=== PATIENT | female | born 1975 ===

== ENCOUNTER 2020-08-14 06:33 | Outpatient (REF) | payer MEDICARE, MEDICAID, SELFPAY ==
[2020-08-14 08:36] LABS: Vitamin D 25-OH Total 21.7 ng/mL (>30)
== END 2020-08-14 06:34 | disposition home or self-care (01) ==
LOC: HO.LAB 06:33
PROVIDERS: PCP Internal Medicine; Visit Provider Internal Medicine
DX: E55.9 Vitamin D deficiency, unspecified (principal); E89.40 Asymptomatic postprocedural ovarian failure
CPT/HCPCS: 82306

== ENCOUNTER 2020-08-15 09:24 | Outpatient (REF) | payer MEDICARE, MEDICAID, SELFPAY ==
[2020-08-15 10:43] LABS: MANUAL DIFF FLAG NO
[2020-08-15 10:49] LABS: Basophils Percent Auto 0.3 % (0-2); Eosinophils Absolute Auto 0.3 X10*3/uL (0.0-0.4); Eosinophils Percent Auto 3.4 % (0-4); Hematocrit 38.1 % (37-47); Hemoglobin 12.4 g/dl (12.0-16.0); Imm Gran Abs Auto 0.04 X10*3/uL (0.00-0.03); Imm Gran Pct Auto 0.4 % (0.0-0.4); Lymphocytes Absolute Auto 2.1 X10*3/uL (1.2-4.9); Lymphocytes Percent Auto 21.9 % (20-40); Mean Corpuscular HGB Conc 32.5 g/dl (31.0-35.0); Mean Corpuscular Hemoglobin 30.4 pg (27.0-33.0); Mean Corpuscular Volume 93.4 fL (80-98); Mean Platelet Volume 10.3 fL (9.4-12.3); Monocytes Absolute Auto 0.4 X10*3/uL (0.1-1.2); Monocytes Percent Auto 4.7 % (2-11); Neutrophils Absolute Auto 6.5 X10*3/uL (2.0-8.3); Neutrophils Percent Auto 69.3 % (45-73); Platelet Count 223 X10*3/uL (160-400); Red Blood Count 4.08 X10*6/uL (4.20-5.50); Red Cell Distribution Width 13.2 % (11.0-16.0); White Blood Count 9.4 X10*3/uL (4.8-10.8)
[2020-08-15 10:53] LABS: Prothrombin Time 12.3 SEC (10.8-13.0)
[2020-08-15 11:37] LABS: Blood Urea Nitrogen 18 mg/dL (9-16); Estimated Glomerular Filt Rate > 60
[2020-08-15 11:43] LABS: Alanine Aminotransferase 12 U/L (0-31); Alkaline Phosphatase 60 U/L (39-117); Aspartate Amino Transferase 11 U/L (5-31); Bilirubin Direct 0.2 mg/dL (0.0-0.5); Bilirubin Total 0.6 mg/dL (0.0-1.0); Total Protein 6.6 g/dL (6.5-8.0)
== END 2020-08-15 09:25 | disposition home or self-care (01) ==
LOC: HO.LAB 09:24
PROVIDERS: Absent Provider Thoracic Surgery (Cardiothoracic Vascular Surgery); PCP Internal Medicine; Visit Provider Internal Medicine Gastroenterology
DX: K76.0 Fatty (change of) liver, not elsewhere classified (principal); N28.9 Disorder of kidney and ureter, unspecified
CPT/HCPCS: 36415; 80076; 82565; 84520; 85025; 85610

== ENCOUNTER 2020-09-04 10:55 | Outpatient (REF) | payer MEDICARE, MEDICAID, SELFPAY ==
--- NOTE | 2020-09-04 11:00 | MM_ITS ---
EXAMINATION: MM SCREENING DIGITAL BREAST TOMOSYNTHESIS, BILATERAL CLINICAL INFORMATION: Screening. Asymptomatic. The lifetime risk of breast cancer based on the Tyrer-Cuzick Model is 4.1%. COMPARISON: Mammography: August 31, 2019 and studies dating back to January 17, 2015 TECHNIQUE: Digital breast tomosynthesis is performed in both the craniocaudal and mediolateral oblique views along with computer-aided detection (CAD). Synthesized 2D images are generated from the tomosynthesis. FINDINGS: The breasts are almost entirely fatty (ACR BI-RADS breast composition Category a). There are no significant masses, abnormal calcifications, or other abnormalities. MM/MM tomosynthesis screening BI IMPRESSION: There are no significant changes from prior study. ASSESSMENT: BI-RADS 1: Negative RECOMMENDATION: Routine annual mammography screening. This patient's information was entered into a reminder system with a target due date for their next mammogram.
== END 2020-09-04 10:56 | disposition home or self-care (01) ==
LOC: HO.MAMMO 10:55
PROVIDERS: PCP Internal Medicine; Visit Provider Internal Medicine
DX: Z12.31 Encounter for screening mammogram for malignant neoplasm of breast (principal)
CPT/HCPCS: 77063; 77067

== ENCOUNTER → 2020-09-11 09:58 | Outpatient (BNVA) | payer MEDICARE, MEDICAID, SELFPAY | PROVIDERS: PCP Internal Medicine; Referring Provider Internal Medicine; Visit Provider Internal Medicine Gastroenterology | DX: K76.0 Fatty (change of) liver, not elsewhere classified (principal); K58.2 Mixed irritable bowel syndrome; R19.06 Epigastric swelling, mass or lump; Z87.891 Personal history of nicotine dependence | CPT/HCPCS: 99212 ==

== ENCOUNTER 2020-09-19 08:51 | Outpatient (REF) | payer MEDICARE, MEDICAID, SELFPAY ==
--- NOTE | 2020-09-19 08:54 | US_ITS ---
EXAMINATION: US ABDOMEN COMPLETE CLINICAL INFORMATION: Fatty liver. COMPARISON: Ultrasound abdomen complete 10/09/2019 and 11/22/2018. CTA abdomen and pelvis 01/12/2019. TECHNIQUE: Real-time imaging of the abdominal viscera. FINDINGS: PANCREAS: Visualized portions unremarkable. The tail is partially obscured by bowel gas shadowing. ABDOMINAL AORTA: Visualized portions unremarkable. INFERIOR VENA CAVA: Visualized portions unremarkable. LIVER: Unremarkable. GALLBLADDER: Surgically absent. COMMON BILE DUCT: Normal in caliber measuring 0.4 cm in diameter. RIGHT KIDNEY: 14.1 cm. Unremarkable. LEFT KIDNEY: 14.1 cm. Unremarkable. SPLEEN: 16.7 cm (previously 20.1 cm) No focal abnormality. FREE FLUID: None. OTHER: Additional scanning in the periumbilical region showed no significant abnormality. US/US abdomen complete IMPRESSION: 1. No significant hepatic steatosis or focal abnormality. Interval cholecystectomy. 2. Splenic enlargement with interval decrease in size compared to the previous study as detailed above. No focal normality. 3. No abnormality in the region of concern in the periumbilical region. * If these findings persist or enlarge, short-term repeat targeted soft tissue ultrasound can be performed as clinically indicated to assess for change.
== END 2020-09-19 08:52 | disposition home or self-care (01) ==
LOC: HO.HMGCX 08:51
PROVIDERS: PCP Internal Medicine; Visit Provider Internal Medicine Gastroenterology
DX: K76.0 Fatty (change of) liver, not elsewhere classified (principal); R19.06 Epigastric swelling, mass or lump
CPT/HCPCS: 76700

== ENCOUNTER 2020-12-11 11:10 | Outpatient (REF) | payer MEDICARE, MEDICAID, SELFPAY | END 2020-12-11 11:11 | disposition home or self-care (01) | LOC: HO.HMGCLDS 11:10 | PROVIDERS: PCP Internal Medicine; Visit Provider Internal Medicine | DX: Z20.822 Contact with and (suspected) exposure to COVID-19 (principal) | CPT/HCPCS: 36415; U0003; U0005 ==

== ENCOUNTER 2020-12-12 08:21 | Outpatient (REF) | payer MEDICARE, MEDICAID, SELFPAY ==
[2020-12-12 11:20] LABS: MANUAL DIFF FLAG NO
[2020-12-12 11:31] LABS: Basophils Absolute Auto 0.1 X10*3/uL (0.0-0.2); Basophils Percent Auto 0.5 % (0-2); Eosinophils Absolute Auto 0.2 X10*3/uL (0.0-0.4); Hematocrit 39.8 % (37-47); Hemoglobin 12.9 g/dl (12.0-16.0); Imm Gran Abs Auto 0.02 X10*3/uL (0.00-0.03); Imm Gran Pct Auto 0.2 % (0.0-0.4); Lymphocytes Absolute Auto 1.9 X10*3/uL (1.2-4.9); Mean Corpuscular HGB Conc 32.4 g/dl (31.0-35.0); Mean Corpuscular Hemoglobin 30.6 pg (27.0-33.0); Mean Corpuscular Volume 94.3 fL (80-98); Mean Platelet Volume 10.4 fL (9.4-12.3); Monocytes Absolute Auto 0.5 X10*3/uL (0.1-1.2); Monocytes Percent Auto 5.3 % (2-11); Neutrophils Absolute Auto 7.1 X10*3/uL (2.0-8.3); Platelet Count 246 X10*3/uL (160-400); Red Blood Count 4.22 X10*6/uL (4.20-5.50); White Blood Count 9.8 X10*3/uL (4.8-10.8)
[2020-12-12 11:52] LABS: Alanine Aminotransferase 14 U/L (0-31); Anion Gap 13 (12-20); Aspartate Amino Transferase 12 U/L (5-31); Blood Urea Nitrogen 18 mg/dL (9-16); Carbon Dioxide 27 mmol/L (22-29); Chloride 104 mmol/L (96-108); Cholesterol 135 mg/dL; Estimated Glomerular Filt Rate > 60; Glucose Fasting 95 mg/dL (60-99); HDL Cholesterol 47 mg/dL; LDL Cholesterol Calculated 69 mg/dl; Sodium 140 mmol/L (135-145); Triglycerides 98 mg/dL
[2020-12-12 12:12] LABS: Vitamin D 25-OH Total 42.4 ng/mL (>30)
== END 2020-12-12 08:22 | disposition home or self-care (01) ==
LOC: HO.HMGCLDS 08:21
PROVIDERS: PCP Internal Medicine; Visit Provider Internal Medicine
DX: Z00.01 Encounter for general adult medical examination with abnormal findings (principal); E66.01 Morbid (severe) obesity due to excess calories; G25.81 Restless legs syndrome; I10 Essential (primary) hypertension; E55.9 Vitamin D deficiency, unspecified
CPT/HCPCS: 36415; 80048; 80061; 82306; 84450; 84460; 85025

== ENCOUNTER 2021-05-20 07:57 | Outpatient (REF) | payer MEDICARE, MEDICAID, SELFPAY | END 2021-05-20 07:58 | disposition home or self-care (01) | LOC: HO.HAP 07:57 | PROVIDERS: Visit Provider Internal Medicine | DX: Z46.1 Encounter for fitting and adjustment of hearing aid (principal); H90.3 Sensorineural hearing loss, bilateral | CPT/HCPCS: V5266 ==

== ENCOUNTER 2021-07-09 15:16 | Outpatient (REF) | payer MEDICARE, MEDICAID, SELFPAY | END 2021-07-09 15:17 | disposition home or self-care (01) | LOC: HO.HAP 15:16 | PROVIDERS: Visit Provider Internal Medicine | DX: Z46.1 Encounter for fitting and adjustment of hearing aid (principal); H90.42 Sensorineural hearing loss, unilateral, left ear, with unrestricted hearing on the contralateral side | CPT/HCPCS: 92592 ==

== ENCOUNTER 2021-08-17 13:32 | Emergency (ER) | payer MEDICARE, MEDICAID, SELFPAY ==
[2021-08-17 13:45] VITALS: BP 122/62; PULSE 61; RESP 18; TEMP 36.7; O2SAT 99; BMI 51.9
--- NOTE | 2021-08-17 14:45 | ED_ITS ---
HPI - Animal Bite General Chief Complaint: Animal Bite Stated Complaint: bit by a parrot Time Seen by Provider: 08/17/21 14:01 Source: patient Mode of arrival: ambulatory Limitations: no limitations History of Present Illness HPI narrative: 46 yo female here with parrot bite to right side of face swelling and redness since yesterday. No fevers, chills, No history of DM. Related Data Home Medications Medication Instructions Recorded Confirmed diclofenac sodium 1 % topical gel 2 g TOPICAL BID PRN 08/08/20 12/11/20 cholecalciferol (vitamin D3) 50 100 mcg PO DAILY cap 12/11/20 12/11/20 mcg (2,000 unit) capsule lactobacillus combination no.9 4 PO 12/11/20 12/11/20 billion cell capsule (Adult 50 Plus Probiotic) omega-3 fatty acids 1,000 mg 1,000 mg PO DAILY 12/11/20 12/11/20 capsule (Fish Oil Concentrate) Previous Rx's Medication Instructions Recorded ropinirole 1 mg tablet 1 mg PO BEDTIME #90 tab 01/19/21 metoprolol succinate 50 mg 50 mg PO DAILY #90 tab 05/07/21 tablet,extended release 24 hr fluticasone propionate 50 1 spray INTRANASAL DAILY #48 ml 07/09/21 mcg/actuation nasal spray,suspension loratadine 10 mg tablet 10 mg PO DAILY #90 tab 07/09/21 olmesartan 5 mg tablet 5 mg PO DAILY #90 tab 07/09/21 oxybutynin chloride 15 mg 15 mg PO DAILY #30 tab 07/30/21 tablet,extended release 24 hr doxycycline monohydrate 100 mg 100 mg PO BID #14 tab 08/17/21 tablet Allergies Allergy/AdvReac Type Severity Reaction Status Date / Time acetaminophen [From Vicodin] Allergy Severe Hives Verified 12/11/20 11:09 cephalexin Allergy Severe hives Verified 12/11/20 11:09 hydrocodone [From Vicodin] Allergy Severe Hives Verified 12/11/20 11:09 aspirin [From Nixon Aspirin] Allergy Mild Eye Verified 12/11/20 11:09 Swelling Review of Systems Review of Systems: Yes all other systems are reviewed and are negative Constitutional: Constitutional: Reports no additional constitutional compla ints, Denies body ache(s), Denies chills, Denies fever(s), Denies headache(s) and Denies weakness Eyes: Eyes: Reports no additional eye complaints and Denies change in vision ENT: Reports system reviewed and no additional complaints, except as documented, Denies dizziness, Denies headache(s), Denies nasal congestion, Denies nasal discharge and Denies neck pain Cardiovascular: Cardiovascular: Reports no additional cardiovascular complaints, Denies chest pain, Denies leg edema and Denies dyspnea Respiratory: Respiratory: Reports no additional respiratory complaints, Denies cough and Denies dyspnea Gastrointestinal: Gastrointestinal: Reports no additional gastrointestinal complaints, Denies abdominal pain, Denies diarrhea, Denies nausea and Denies vomiting Genitourinary: Genitourinary: Reports no additional female genitourinary complaints and Denies urinary incontinence Musculoskeletal: Musculoskeletal: Reports no additional musculoskeletal complaints, Denies back pain, Denies arthralgias, Denies joint swelling, Denies neck pain, Denies numbness and Denies tingling Integumentary/Breasts: Skin/Breast: Reports system reviewed and no additional complaints, except as docu, Reports erythema, Denies rash and Reports skin swelling Neurologic: Reports system reviewed and no additional complaints, except as documented, Denies Abnormal speech present, Denies dizziness, Denies headache(s), Denies numbness, Denies tingling and Denies weakness PMFSH Past Medical History Attestation statement: The following information was validated with the patient. Source: old records reviewed and nursing notes reviewed Medical History Ascending aortic aneurysm Essential hypertension Morbid obesity Obstructive sleep apnea on CPAP Pain in right foot Refused influenza vaccine Restless leg syndrome Surgical menopause Urinary, incontinence, stress female Uterine fibroid Vitamin D deficiency Surgical History History of cervical spinal surgery History of section History of partial hysterectomy History of tubal ligation Hx of cholecystectomy Family History Family History Father Heart disease Mother Alive and well Sister No problems noted. Son No problems noted. Daughter No problems noted. Social History Social History Alcohol intake: never Substance Use Type: Marijuana Advance Directives: No Advance Directives Information Provided: Yes Physical Exam Vital Signs: Vital Signs: Last Vital Signs Temp 98.0 F 08/17/21 13:45 Pulse 61 08/17/21 13:45 Resp 18 08/17/21 13:45 BP 122/62 08/17/21 13:45 Pulse Ox 99 08/17/21 13:45 Body Mass Index 51.9 Const: General: cooperative, healthy appearing, comfortable and no acute distress Orientation/consciousness: patient oriented x3 Limitations: no limitations HENMT: Other: No trismus Head: Yes normal to inspection Ears: hearing grossly normal bilaterally and TM's normal bilaterally General nose exam: Normal external nose present Face and sinus: Yes normal facial exam Face images: 1. small abrasion ?puncture site from the parrot 2. redness, swelling, tenderness with no fluctuance/induration. Mouth: Normal oral and palatal mucosa present Throat: Yes posterior oropharynx normal, Yes tonsils normal and Yes uvula midline Eyes: General: appearance normal, both eyes and all related structures Pupils: Equal, round and reactive pupils present Neck: Neck: Yes normal visual inspection Chest: Chest palpation & inspection: normal inspection of the chest Resp: Effort & Inspection: normal respiratory effort Auscultation: clear to auscultation bilaterally Cardio: Rate: regular rate Rhythm: regular rhythm Peripheral pulses: Peripheral pulses 2+ throughout GI: Inspection: Yes normal to inspection Palpation (GI): Soft to palpation and nontender Auscultation: normal bowel sounds Back/Spine/Pelvis: Thoracic/Lumbar Spine: thoracic and lumbar spine normal to inspection Skin: General skin exam: no rashes or lesions noted Neuro: General: patient oriented x3, no focal motor deficits and normal sensation to monofilament Cranial nerves: Yes Equal, round and reactive pupils present Cognition (Neuro): normal cognition Speech: No Abnormal speech present Gait exam (Neuro): Normal gait present Motor exam (neuro): 5/5 motor strength present throughout Extrem: General: Yes normal to inspection Course Course Course Narrative: 46 yo female here with parrot bite to the right side of the face now with local swelling, redness and tenderness c/w with a cellulitis. No fevers, chills or symptoms concerning for systemic infection. Recommended patient to return in 48 hrs for a wound check. Reviewed worrisome signs.symptoms with patient and when to return to the ED. Comfortable with discharge home. MDM - Animal Bite Medical Records Attestation: I reviewed the patient's medical records. Lab Data Attestation: I reviewed the patient's lab results. Discharge Plan Discharge Clinical Impression: Bitten by other birds, initial encounter, Cellulitis Patient Disposition: Home, Self-Care Instructions: Animal Bite (ED), Cellulitis (ED), Warm Compress or Soak (ED) Additional Instructions: Warm compresses four times a day Return for increasing redness, swelling or fever >100.4 Wound check in 48 hrs Prescriptions: New doxycycline monohydrate 100 mg tablet 100 mg PO BID Qty: 14 RF: 0 No Action ropinirole 1 mg tablet 1 mg PO BEDTIME Qty: 90 RF: 1 metoprolol succinate 50 mg tablet extended release 24 hr 50 mg PO DAILY Qty: 90 RF: 2 fluticasone propionate 50 mcg/actuation spray,suspension 1 spray intranasal DAILY Qty: 48 RF: 1 olmesartan 5 mg tablet 5 mg PO DAILY Qty: 90 RF: 1 loratadine 10 mg tablet 10 mg PO DAILY Qty: 90 RF: 1 oxybutynin chloride 15 mg tablet extended release 24 hr 15 mg PO DAILY Qty: 30 RF: 1 diclofenac sodium 1 % gel 2 g topical BID PRNRF: 0 cholecalciferol (vitamin D3) 50 mcg (2,000 unit) capsule 100 mcg PO DAILY RF: 0 Adult 50 Plus Probiotic 4 billion cell capsule PO RF: 0 omega-3 fatty acids [Fish Oil Concentrate] 1,000 mg capsule 1,000 mg PO DAILY RF: 0 Referrals: Danya Oneil MD [Primary Care Provider] - 2 days
== END 2021-08-17 14:58 | disposition home or self-care (01) ==
PROVIDERS: Emergency Provider Student in an Organized Health Care Education/Training Program; PCP Internal Medicine
DX: S00.87XA Other superficial bite of other part of head, initial encounter (principal); L03.90 Cellulitis, unspecified; W61.01XA Bitten by parrot, initial encounter; Y93.9 Activity, unspecified; Y92.9 Unspecified place or not applicable; Y99.9 Unspecified external cause status; Z79.899 Other long term (current) drug therapy
CPT/HCPCS: 99282

== ENCOUNTER 2021-08-23 00:58 | Emergency (ER) | payer MEDICARE, MEDICAID, SELFPAY ==
[2021-08-23 00:59] VITALS: BP 122/69; PULSE 78; RESP 24; TEMP 36; O2SAT 96; BMI 51.9
--- NOTE | 2021-08-23 01:19 | ED.ANIMALBIT ---
HPI - Animal Bite General Chief Complaint: Animal Bite Stated Complaint: follow up on bird bite Time Seen by Provider: 08/23/21 01:09 Source: patient Mode of arrival: ambulatory Limitations: no limitations History of Present Illness HPI narrative: Patient comes to the emergency room, concerned about her facial wound not healing properly. Patient was seen here on 08/17/2021, patient was seen here for parrot bite to the right cheek of the face. Patient has been taking doxycycline as prescribed, now is concerned that there is an induration in her cheek. Patient denies fever chills, denies pus drainage Related Data Home Medications Medication Instructions Recorded Confirmed diclofenac sodium 1 % topical gel 2 g TOPICAL BID PRN 08/08/20 12/11/20 cholecalciferol (vitamin D3) 50 100 mcg PO DAILY cap 12/11/20 12/11/20 mcg (2,000 unit) capsule lactobacillus combination no.9 4 PO 12/11/20 12/11/20 billion cell capsule (Adult 50 Plus Probiotic) omega-3 fatty acids 1,000 mg 1,000 mg PO DAILY 12/11/20 12/11/20 capsule (Fish Oil Concentrate) Previous Rx's Medication Instructions Recorded ropinirole 1 mg tablet 1 mg PO BEDTIME #90 tab 01/19/21 metoprolol succinate 50 mg 50 mg PO DAILY #90 tab 05/07/21 tablet,extended release 24 hr fluticasone propionate 50 1 spray INTRANASAL DAILY #48 ml 07/09/21 mcg/actuation nasal spray,suspension loratadine 10 mg tablet 10 mg PO DAILY #90 tab 07/09/21 olmesartan 5 mg tablet 5 mg PO DAILY #90 tab 07/09/21 doxycycline monohydrate 100 mg 100 mg PO BID #14 tab 08/17/21 tablet oxybutynin chloride 15 mg 15 mg PO DAILY #30 tab 08/21/21 tablet,extended release 24 hr sulfamethoxazole 800 1 tab PO BID #13 tab 08/23/21 mg-trimethoprim 160 mg tablet (Bactrim DS) Allergies Allergy/AdvReac Type Severity Reaction Status Date / Time acetaminophen [From Vicodin] Allergy Severe Hives Verified 08/23/21 01:06 cephalexin Allergy Severe hives Verified 08/23/21 01:06 hydrocodone [From Vicodin] Allergy Severe Hives Verified 08/23/21 01:06 aspirin [From Nixon Aspirin] Allergy Mild Eye Verified 08/23/21 01:06 Swelling Penicillins Allergy Unknown Verified 08/23/21 01:19 Review of Systems Review of Systems: Constitutional : No Weight loss, No Fever, No Chills, No Night Sweats, No Fatigue, No Malaise ENT/Mouth : No Hearing loss, No Ear Pain, No Nasal Congestion, No Sinus Pain, No Hoarseness, No sore throat, No Rhinorrhea, No Swallowing Difficulty Eyes: No Eye Pain, No Swelling, No Redness, No Foreign Body, No Discharge, No Vision Changes Cardiovascular : No Chest Pain, No SOB, No Dyspnea on Exertion, No Orthopnea, No Edema, No Palpitations Respiratory : No Cough, No Sputum, No Wheezing, No Smoke Exposure, No Dyspnea Gastrointestinal : No Nausea, No Vomiting, No Diarrhea, No Constipation, No abdominal Pain, No Hematochezia, No Melena Genitourinary : no irregular bleeding, No Dysuria, No Urinary Frequency, No Hematuria, No Urinary Incontinence, No Urgency, No Flank Pain, No Urinary Flow Changes, No Hesitancy Musculoskeletal : No joint pain, No Myalgias, No Joint Swelling Skin : Induration of right face/cheek Neuro : No Weakness, No Numbness, No Paresthesias, No Loss of Consciousness, No Dizziness, No Headache Psych : No Anxiety/Panic, No Depression, No SI/HI/AH/VH, No Social Issues, Heme/Lymph: No Bruising, No Bleeding,No Lymphadenopathy Endocrine : No Polyuria, No Polydipsia, No Temperature Intolerance PMFSH Past Medical History Medical History Ascending aortic aneurysm Essential hypertension Morbid obesity Obstructive sleep apnea on CPAP Pain in right foot Refused influenza vaccine Restless leg syndrome Surgical menopause Urinary, incontinence, stress female Uterine fibroid Vitamin D deficiency Surgical History History of cervical spinal surgery History of section History of partial hysterectomy History of tubal ligation Hx of cholecystectomy Family History Family History Father Heart disease Mother Alive and well Sister No problems noted. Son No problems noted. Daughter No problems noted. Social History Social History Alcohol intake: never Substance Use Type: Marijuana Advance Directives: No Advance Directives Information Provided: Yes Patient : No Physical Exam Vital Signs: Vital Signs: Last Vital Signs Temp 96.8 F 08/23/21 00:59 Pulse 78 08/23/21 00:59 Resp 24 H 08/23/21 00:59 BP 122/69 08/23/21 00:59 Pulse Ox 96 08/23/21 00:59 Body Mass Index 51.9 Const: Other: Appearance: Alert. Oriented X3. No acute distress. Eyes: Pupils equal, round and reactive to light. ENT: Pharynx normal. Neck: Normal inspection. Neck supple. No lymph nodes noted. No crepitus CVS: Normal heart rate and rhythm. Pulses normal. Normal S1 and S2 Respiratory: No respiratory distress. Breath sounds normal. No Wheezing. No rales Abdomen: Soft and nontender. No rigidity. No distention. good BS x4 Skin: Skin warm and dry. 3 cm x 3 cm induration to the right cheek, mildly tender to palpation, no pus, no fluctuation, no erythema, no warmth Extremities: No lower extremity edema. No Lacerations. No Rash Neuro: Oriented X 3. No motor deficit. No sensory deficit. Moving all extermities. No slurred speech. Course Course Course Narrative: Patient's antibiotics were switched to Bactrim, 1st dose given in the emergency room. Sepsis is not suspected Discharge Plan Discharge Clinical Impression: Bitten by parrot, subsequent encounter Patient Disposition: Home, Self-Care Instructions: Animal Bite (ED) Additional Instructions: Please follow-up with your primary care physician tomorrow. If you have any worsening or new symptoms, please return to the emergency room or call 911 Prescriptions: New sulfamethoxazole-trimethoprim [Bactrim DS] 800-160 mg tablet 1 tab PO BID Qty: 13 RF: 0 No Action ropinirole 1 mg tablet 1 mg PO BEDTIME Qty: 90 RF: 1 metoprolol succinate 50 mg tablet extended release 24 hr 50 mg PO DAILY Qty: 90 RF: 2 fluticasone propionate 50 mcg/actuation spray,suspension 1 spray intranasal DAILY Qty: 48 RF: 1 olmesartan 5 mg tablet 5 mg PO DAILY Qty: 90 RF: 1 loratadine 10 mg tablet 10 mg PO DAILY Qty: 90 RF: 1 oxybutynin chloride 15 mg tablet extended release 24 hr 15 mg PO DAILY Qty: 30 RF: 1 doxycycline monohydrate 100 mg tablet 100 mg PO BID Qty: 14 RF: 0 diclofenac sodium 1 % gel 2 g topical BID PRNRF: 0 cholecalciferol (vitamin D3) 50 mcg (2,000 unit) capsule 100 mcg PO DAILY RF: 0 Adult 50 Plus Probiotic 4 billion cell capsule PO RF: 0 omega-3 fatty acids [Fish Oil Concentrate] 1,000 mg capsule 1,000 mg PO DAILY RF: 0
[2021-08-23] MEDS: Sulfamethox/Trimeth 800/160 TABLET 1 TAB PO (01:29)
== END 2021-08-23 01:35 | disposition home or self-care (01) ==
PROVIDERS: Emergency Provider Emergency Medicine; PCP Internal Medicine
DX: S00.87XA Other superficial bite of other part of head, initial encounter (principal); G44.309 Post-traumatic headache, unspecified, not intractable; F12.90 Cannabis use, unspecified, uncomplicated; W61.01XA Bitten by parrot, initial encounter; Y93.9 Activity, unspecified; Y92.9 Unspecified place or not applicable; Y99.9 Unspecified external cause status; Z79.899 Other long term (current) drug therapy
CPT/HCPCS: 99283

== ENCOUNTER 2022-01-20 15:01 | Outpatient (REF) | payer MEDICARE, MEDICAID, SELFPAY ==
[2022-01-20 16:55] LABS: Alanine Aminotransferase 17 U/L (0-31); Anion Gap 13 (12-20); Aspartate Amino Transferase 15 U/L (5-31); Blood Urea Nitrogen 14 mg/dL (9-16); Carbon Dioxide 24 mmol/L (22-29); Chloride 103 mmol/L (96-108); Cholesterol 133 mg/dL; Estimated Glomerular Filt Rate > 60; Glucose Fasting 88 mg/dL (60-99); HDL Cholesterol 43 mg/dL; LDL Cholesterol Calculated 73 mg/dl; Sodium 136 mmol/L (135-145); Triglycerides 86 mg/dL
[2022-01-21 14:46] LABS: Vitamin D 25-OH Total 32.7 ng/mL (>30)
== END 2022-01-20 15:02 | disposition home or self-care (01) ==
LOC: HO.HMGCLDS 15:01
PROVIDERS: PCP Internal Medicine; Visit Provider Internal Medicine
DX: E66.01 Morbid (severe) obesity due to excess calories (principal); I10 Essential (primary) hypertension
CPT/HCPCS: 36415; 80048; 80061; 82306; 84450; 84460

== ENCOUNTER 2022-01-25 12:41 | Outpatient (REF) | payer MEDICARE, MEDICAID, SELFPAY ==
--- NOTE | ~2022-01-25 | MM_ITS ---
EXAMINATION: MM SCREENING DIGITAL BREAST TOMOSYNTHESIS, BILATERAL CLINICAL INFORMATION: Screening. Asymptomatic. The lifetime risk of breast cancer based on the Tyrer-Cuzick Model is 6%. COMPARISON: Mammography: 09/04/2020, 08/31/2019, 08/07/2018, 04/13/2017, 04/03/2016, outside mammography 03/19/2015 ([facility]). TECHNIQUE: Digital breast tomosynthesis is performed in both the craniocaudal and mediolateral oblique views along with computer-aided detection (CAD). Synthesized 2D images are generated from the tomosynthesis. Additional bilateral CC and additional bilateral MLO views are obtained. FINDINGS: The breasts are almost entirely fatty (ACR BI-RADS breast composition Category a). The right CC view shows over 10 loosely grouped punctate high attenuation foci close to skin posterior inferior medial right breast without correlate on MLO views. Finding is new from prior exams. This could represent artifact from topical dermal ointment rather than calcification. Patient will be recalled for additional imaging. The remainder of the bilateral breasts show no abnormal calcifications. Background stromal and fibroglandular densities are stable. There is no interval mass or architectural abnormality or developing density. Axillary nodes are stable. Skin contours are smooth. MM/MM tomosynthesis screening BI IMPRESSION: Right: -Punctate high attenuation densities close to skin posterior inferior medial breast on CC view, possibly dermal artifact. Left: -No mammographic evidence of malignancy. ASSESSMENT: BI-RADS 0: Incomplete - Need Additional Imaging Evaluation RECOMMENDATION: 1. Additional views of the right breast (magnification CC and ML). 2. Radiology department staff will contact the patient for additional imaging. This patient's information was entered into a reminder system with a target due date for their next mammogram.
== END 2022-01-25 12:42 | disposition home or self-care (01) ==
LOC: HO.MAMMO 12:41
PROVIDERS: Visit Provider Internal Medicine
DX: Z12.31 Encounter for screening mammogram for malignant neoplasm of breast (principal)
CPT/HCPCS: 77063; 77067

== ENCOUNTER 2022-02-06 10:42 | Outpatient (REF) | payer MEDICARE, MEDICAID, SELFPAY ==
--- NOTE | ~2022-02-06 | XR_ITS ---
EXAMINATION: XR knee RT 4V CLINICAL INFORMATION: Reason for Exam W19.XXXA - Unspecified fall, initial encounter COMPARISON: None available at the time of this dictation. TECHNIQUE: frontal, lateral, tunnel and patella sunrise views FINDINGS: BONES: No fracture or dislocation is present. JOINTS: Narrowing of joint spaces and developed osteophytes from the edges of articular surfaces suggest degenerative osteoarthritis. 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 No joint effusion.
== END 2022-02-06 10:43 | disposition home or self-care (01) ==
LOC: HO.HMGCX 10:42
PROVIDERS: Visit Provider Physician Assistant Medical
DX: M25.561 Pain in right knee (principal); W19.XXXD Unspecified fall, subsequent encounter
CPT/HCPCS: 73564

== ENCOUNTER 2022-02-18 15:00 | Outpatient (REF) | payer MEDICARE, MEDICAID, SELFPAY ==
--- NOTE | ~2022-02-18 | MM_ITS ---
EXAMINATION: MM DIAGNOSTIC DIGITAL BREAST TOMOSYNTHESIS, RIGHT CLINICAL INFORMATION: Recall from screening for punctate high attenuation densities close to skin posterior inferior medial right breast, possibly dermal artifact. COMPARISON: Mammography: 01/25/2022, 09/04/2020 TECHNIQUE: Digital breast tomosynthesis is performed. 2D images are generated from the tomosynthesis. The following views are obtained: Magnification CC x3, standard CC, standard LM. FINDINGS: The breasts are almost entirely fatty (ACR BI-RADS breast composition Category a). The punctate densities noted at screening are not found on the additional views. Finding at screening is consistent with artifact as suspected. Discussion with the patient reveals use of topical ointment in this area close to the recent screening appointment. MM/MM tomosynthesis added views R IMPRESSION: Additional views show no grouped calcifications in the area of recent screening concern. Finding at screening is believed to have represented topical artifact. ASSESSMENT: BI-RADS 1: Negative RECOMMENDATION: Routine annual mammography screening. This patient's information was entered into a reminder system with a target due date for their next mammogram.
== END 2022-02-18 15:01 | disposition home or self-care (01) ==
LOC: HO.MAMMO 15:00
PROVIDERS: PCP Internal Medicine; Visit Provider Internal Medicine
DX: R92.2 Inconclusive mammogram (principal); R92.1 Mammographic calcification found on diagnostic imaging of breast
CPT/HCPCS: 77061; 77065

== ENCOUNTER 2022-05-10 18:59 | Outpatient (REF) | payer MEDICARE, MEDICAID, SELFPAY ==
--- NOTE | ~2022-05-10 | MR_ITS ---
EXAMINATION: MR KNEE WITHOUT CONTRAST, RIGHT CLINICAL INFORMATION: Right knee pain and swelling. COMPARISON: Right knee radiographs dated 02/06/2022. TECHNIQUE: MRI of the knee without contrast was performed using routine sequences on a high-field scanner. FINDINGS: MENISCI: Medial Meniscus: Complete radial tear of the posterior root measuring 0.8 cm in dimension. Degenerative intrasubstance signal within the posterior horn and body which is medially extruded. Lateral Meniscus: Intact. LIGAMENTS: Cruciate: Intact. Collateral: Intact. EXTENSOR MECHANISM: Intact. ARTICULAR CARTILAGE/BONE: Patellofemoral Compartment: Medial patellar facet articular cartilage signal heterogeneity and surface regularly. Lateral trochlear articular cartilage thinning and signal heterogeneity. Tiny marginal osteophytes. Medial Compartment: Periarticular cartilage thinning and signal heterogeneity with tiny marginal osteophytes. Lateral Compartment: Intact articular cartilage. JOINT FLUID AND BURSAE: [id number] joint effusion and small Oneill's cyst. Fluid within the fascial planes adjacent to the Oneill's cyst consistent with leak or rupture. MR/MR knee RT wo con IMPRESSION: 1. Complete radial tear of the medial meniscus posterior root measuring 0.8 cm in ML dimension with medial extrusion of the meniscal body. 2. Mild patellofemoral and medial compartment osteoarthritis. 3. [id number] joint effusion and small Oneill's cyst. Fluid within the adjacent fascial planes consistent with Oneill's cyst leak or rupture.
== END 2022-05-10 19:00 | disposition home or self-care (01) ==
LOC: HO.MRI 18:59
PROVIDERS: Visit Provider Internal Medicine
DX: M25.561 Pain in right knee (principal)
CPT/HCPCS: 73721

== ENCOUNTER → 2022-06-14 10:49 | Outpatient (BNVA) | payer MEDICARE, MEDICAID, SELFPAY | PROVIDERS: PCP Internal Medicine; Visit Provider Physician Assistant | DX: M17.11 Unilateral primary osteoarthritis, right knee (principal) | CPT/HCPCS: 99202 ==

== ENCOUNTER → 2022-06-24 13:34 | Outpatient (BNVA) | payer MEDICARE, MEDICAID, SELFPAY | PROVIDERS: PCP Internal Medicine; Visit Provider Internal Medicine Gastroenterology | DX: K58.2 Mixed irritable bowel syndrome (principal); K76.0 Fatty (change of) liver, not elsewhere classified; R22.2 Localized swelling, mass and lump, trunk; Z80.0 Family history of malignant neoplasm of digestive organs | CPT/HCPCS: 99212 ==

== ENCOUNTER 2022-07-06 09:59 | Outpatient (REF) | payer MEDICARE, MEDICAID, SELFPAY ==
[2022-07-06 11:09] LABS: FIT1 NEGATIVE (NEGATIVE)
[2022-07-06 11:10] LABS: FIT2 NEGATIVE (NEGATIVE)
[2022-07-06 11:11] LABS: FIT Int Ctl YES
== END 2022-07-06 10:00 | disposition home or self-care (01) ==
LOC: HO.LNP 09:59
PROVIDERS: Visit Provider Internal Medicine Gastroenterology
DX: Z12.11 Encounter for screening for malignant neoplasm of colon (principal); Z80.0 Family history of malignant neoplasm of digestive organs
CPT/HCPCS: 82274

== ENCOUNTER → 2022-07-26 09:28 | Outpatient (BNVA) | payer MEDICARE, MEDICAID, SELFPAY | PROVIDERS: PCP Internal Medicine; Visit Provider Internal Medicine | DX: M17.11 Unilateral primary osteoarthritis, right knee (principal); S83.241A Other tear of medial meniscus, current injury, right knee, initial encounter | CPT/HCPCS: 99202 ==

== ENCOUNTER 2022-08-03 14:10 | Outpatient (REF) | payer MEDICARE, MEDICAID, SELFPAY ==
--- NOTE | ~2022-08-03 | US_ITS ---
EXAMINATION: US ABDOMEN LIMITED CLINICAL INFORMATION: Abdominal wall lump adjacent to umbilicus. COMPARISON: Ultrasound abdomen complete 09/19/2020 and 11/22/2018. CT angiogram chest, abdomen and pelvis 01/12/2019. TECHNIQUE: Real-time imaging of the area indicated by patient right of umbilicus. FINDINGS: The area indicated by patient lies to right of umbilicus and is consistent with a small hernia with neck measuring 3.97 cm. No bowel loops seen. US/US abdomen limited IMPRESSION: Small right paraumbilical hernia containing intra-abdominal fat. No bowel loops seen.
== END 2022-08-03 14:11 | disposition home or self-care (01) ==
LOC: HO.HMGCX 14:10
PROVIDERS: PCP Internal Medicine; Visit Provider Internal Medicine Gastroenterology
DX: R22.2 Localized swelling, mass and lump, trunk (principal)
CPT/HCPCS: 76705

== ENCOUNTER 2022-08-06 14:10 | Outpatient (REF) | payer MEDICARE, MEDICAID, SELFPAY ==
[2022-08-06 14:21] LABS: MANUAL DIFF FLAG NO
[2022-08-06 14:40] LABS: Basophils Percent Auto 0.4 % (0-2); Eosinophils Absolute Auto 0.3 X10*3/uL (0.0-0.4); Eosinophils Percent Auto 3.1 % (0-4); Hematocrit 36.8 % (37.0-47.0); Hemoglobin 11.9 g/dl (12.0-16.0); Imm Gran Abs Auto 0.06 X10*3/uL (0.00-0.03); Imm Gran Pct Auto 0.7 % (0.0-0.4); Lymphocytes Absolute Auto 2.6 X10*3/uL (1.2-4.9); Lymphocytes Percent Auto 28.2 % (20-40); Mean Corpuscular HGB Conc 32.3 g/dl (31.0-35.0); Mean Corpuscular Hemoglobin 29.5 pg (27.0-33.0); Mean Corpuscular Volume 91.1 fL (80.0-98.0); Mean Platelet Volume 9.8 fL (9.4-12.3); Monocytes Absolute Auto 0.5 X10*3/uL (0.1-1.2); Monocytes Percent Auto 5.4 % (2-11); Neutrophils Absolute Auto 5.7 x10*3/uL (2.0-8.3); Neutrophils Percent Auto 62.2 % (45-73); Platelet Count 225 X10*3/uL (160-400); Red Blood Count 4.04 X10*6/uL (4.20-5.50); Red Cell Distribution Width 13.5 % (11.0-16.0); White Blood Count 9.2 X10*3/uL (4.8-10.8)
[2022-08-06 15:03] LABS: Alanine Aminotransferase 11 U/L (0-31); Albumin Level 4.1 g/dL (3.5-5.0); Alkaline Phosphatase 71 U/L (39-117); Anion Gap 11 (12-20); Aspartate Amino Transferase 13 U/L (5-31); Bilirubin Total 0.4 mg/dL (0.0-1.0); Blood Urea Nitrogen 15 mg/dL (9-16); Calcium 8.7 mg/dL (8.4-10.2); Carbon Dioxide 27 mmol/L (22-29); Chloride 105 mmol/L (96-108); Estimated Glomerular Filt Rate > 60; Glucose Random 93 mg/dL (60-115); Potassium 4.1 mmol/L (3.3-5.1); Sodium 139 mmol/L (135-145); Total Protein 6.9 g/dL (6.5-8.0)
== END 2022-08-06 14:11 | disposition home or self-care (01) ==
LOC: HO.LAB 14:10
PROVIDERS: PCP Internal Medicine; Visit Provider Surgery
DX: E66.01 Morbid (severe) obesity due to excess calories (principal); G47.33 Obstructive sleep apnea (adult) (pediatric); I10 Essential (primary) hypertension; K58.2 Mixed irritable bowel syndrome; Z99.89 Dependence on other enabling machines and devices; K43.2 Incisional hernia without obstruction or gangrene; Z80.0 Family history of malignant neoplasm of digestive organs
CPT/HCPCS: 36415; 80053; 84134; 85025; 99202

== ENCOUNTER → 2022-09-01 13:52 | Outpatient (BNVA) | payer MEDICARE, MEDICAID, SELFPAY | PROVIDERS: PCP Internal Medicine; Referring Provider Surgery; Visit Provider Dietitian, Registered | DX: E66.01 Morbid (severe) obesity due to excess calories (principal); Z68.43 Body mass index [BMI] 50.0-59.9, adult | CPT/HCPCS: 97802 ==

== ENCOUNTER 2023-01-19 05:23 | Emergency (ER) | payer MEDICARE, MEDICAID, SELFPAY ==
[2023-01-19 05:31] VITALS: BP 138/79; PULSE 82; RESP 18; TEMP 36.5; O2SAT 100; BMI 57.0
[2023-01-19 05:38] VITALS: BP 150/90; PULSE 67; RESP 18; TEMP 36.8; O2SAT 97
--- NOTE | 2023-01-19 06:33 | ED_ITS ---
HPI - Ear Problem General Chief complaint: Ear Problems Stated complaint: clogged ears x2 weeks Time Seen by Provider: 01/19/23 06:24 Source: patient Mode of arrival: ambulatory Limitations: no limitations History of Present Illness HPI Narrative: 47-year-old female who presents emergency department for evaluation of clogged ears. The patient states that she got a membership to the [employer] and has been swimming in the pool. She states that 2 weeks prior she felt like your user both clot but then resolved. She states that over the last several days her ears feel clogged again. She also states she has had nasal congestion. She denies pain in her ears. She states she is having decreased hearing. She denied fever, chills, nausea, vomiting, lightheadedness, dizziness. Related Data Home Medications Medication Instructions Recorded Confirmed cholecalciferol (vitamin D3) 50 100 mcg PO DAILY 12/11/20 08/06/22 mcg (2,000 unit) capsule azelastine 137 mcg (0.1 %) nasal 1 spray intranasal BID 07/26/22 08/06/22 spray aerosol Previous Rx's Medication Instructions Recorded fluticasone propionate 50 1 spray intranasal DAILY #48 mL 07/09/21 mcg/actuation nasal spray,suspension olmesartan 5 mg tablet 5 mg PO DAILY #90 tabs 02/26/22 loratadine 10 mg tablet 10 mg PO DAILY #90 tabs 07/26/22 oxybutynin chloride 15 mg 15 mg PO DAILY #90 tabs 07/26/22 tablet,extended release 24 hr azithromycin 250 mg tablet See Rx Instructions PO .COMPLEX #6 08/20/22 tabs ferrous fumarate 324 mg (106 mg 324 mg PO DAILY #30 tabs 08/20/22 iron) tablet blood pressure monitor #1 ea 09/20/22 ropinirole 1 mg tablet 1 mg PO BEDTIME #90 tabs 10/10/22 nirmatrelvir 300 mg (150 mg See Rx Instructions PO .COMPLEX 10/19/22 x2)-ritonavir 100 mg tablet,dose #30 ea pack(EUA) (Paxlovid) metoprolol succinate 50 mg 50 mg PO DAILY #90 tabs 01/15/23 tablet,extended release 24 hr Allergies Allergy/AdvReac Type Severity Reaction Status Date / Time cephalexin Allergy Severe hives Verified 01/19/23 05:39 hydrocodone [From Vicodin] Allergy Severe Hives Verified 01/19/23 05:39 aspirin [From Nixon Aspirin] Allergy Mild Eye Verified 01/19/23 05:39 Swelling Penicillins Allergy Unknown Verified 01/19/23 05:39 meloxicam AdvReac Swelling Verified 01/19/23 05:39 Review of Systems Review of Systems: Yes all other systems are reviewed and are negative [facility] Past Medical History Medical History (Updated 01/19/23 @ 06:40 by Sonny Howard MD) Acute medial meniscus tear of right knee Ascending aortic aneurysm Essential hypertension Moderate recurrent major depression Morbid obesity Obstructive sleep apnea on CPAP Pain in right foot Refused influenza vaccine Restless leg syndrome Surgical menopause Urinary, incontinence, stress female Uterine fibroid Vitamin D deficiency Surgical History (Updated 12/19/22 @ 22:09 by Danya Oneil MD) History of cervical spinal surgery History of section History of partial hysterectomy History of tubal ligation Hx of cholecystectomy Family History Family History Father Heart disease Substance use disorder Mental health disorder Mother Alive and well Substance use disorder Mental health disorder Sister Mental health disorder Son Mental health disorder Daughter No problems noted. Social History Social History Housing: House Alcohol intake: current Alcohol intake frequency: holidays/special occasions only Alcohol type: wine and hard liquor Patient Tobacco Use Status: Former Tobacco user e-Cigarette/Vaping Use: Never Used Substance Use Type: Marijuana Advance Directives: No Advance Directives Information Provided: Yes service: No Current occupational status: disabled Cognitive needs: No Hearing needs: No Vision needs: No Physical Exam Vital Signs: Vital Signs: Last Vital Signs Temp 98.2 F 01/19/23 05:38 Pulse 67 01/19/23 05:38 Resp 18 01/19/23 05:38 BP 150/90 H 01/19/23 05:38 Pulse Ox 97 01/19/23 05:38 O2 Del Method 01/19/23 05:38 BMI result Body Mass Index 57.0 General: Awake, alert, female patient, very pleasant and cooperative, in no distress HEENT: Head is normal cephalic and atraumatic, pupils were equal round reactive light, sclera contact however normal, mouth revealed moist membranes with no erythema, nares are clear with no rib rhinorrhea, both tympanic membranes are obscured by cerumen. Patient has no tenderness with palpation of the ear or the ear canal. Medical Decision Making Medical Decision Making [facility] Narrative: 47-year-old female who presents to the emergency department for evaluation of clogged ears. Patient has been swimming at the [facility]. She also has had nasal congestion with no other symptoms. Patient's physical examination revealed no tenderness with palpation of the ears or the ear canal. Both tympanic membranes are obscured by cerumen. Patient's findings are consistent with cerumen impaction and not otitis externa. The patient's ears will be irrigated with a hydrogen peroxide and water by nursing staff. Differential Diagnosis Differential diagnosis includes was not limited to otitis externa, otitis media, cerumen impaction. Discharge Plan Discharge Clinical Impression: Bilateral impacted cerumen Patient Disposition: Home, Self-Care Additional Instructions: Your ears were irrigated to remove the earwax. Follow-up with your doctor in 2 days. Please return to the emergency department if your symptoms get worse or if you develop any symptoms that are concerning to you. Prescriptions: No Action fluticasone propionate 50 mcg/actuation spray,suspension 1 spray intranasal DAILY Qty: 48 1RF olmesartan 5 mg tablet 5 mg PO DAILY Qty: 90 3RF oxybutynin chloride 15 mg tablet extended release 24hr 15 mg PO DAILY Qty: 90 1RF loratadine 10 mg tablet 10 mg PO DAILY Qty: 90 1RF (DME) blood pressure monitor Kit See Rx Instructions .Route Qty: 1 0RF Rx Instructions: Electronic BP monitor with Extra Large cuff ropinirole 1 mg tablet 1 mg PO BEDTIME Qty: 90 1RF Rx Instructions: administer 1-3 hours before bedtime Paxlovid (EUA) 300 mg (150 mg x 2)-100 mg tablets,dose pack See Rx Instructions PO .COMPLEX Qty: 30 0RF Rx Instructions: take TWO 150 mg tablets of nirmatrelvir with ONE 100 mg tablet of ritonavir twice daily for 5 days PO metoprolol succinate 50 mg tablet extended release 24 hr 50 mg PO DAILY Qty: 90 2RF cholecalciferol (vitamin D3) 50 mcg (2,000 unit) capsule 100 mcg PO DAILY azithromycin 250 mg tablet See Rx Instructions PO .COMPLEX Qty: 6 0RF Rx Instructions: For 250 mg dose pack: take 500 mg today (day 1), then 250 mg for 4 days (days 2-5) PO ferrous fumarate 324 mg (106 mg iron) tablet 324 mg PO DAILY Qty: 30 5RF azelastine 137 mcg (0.1 %) aerosol,spray 1 spray intranasal BID Interventions: ED Discharge Assessment Last Done: 01/19/23 07:36
== END 2023-01-19 07:37 | disposition home or self-care (01) ==
PROVIDERS: Emergency Provider Emergency Medicine Emergency Medical Services; PCP Internal Medicine
DX: H61.23 Impacted cerumen, bilateral (principal); R09.81 Nasal congestion
CPT/HCPCS: 69209; 99282

== ENCOUNTER 2023-02-11 09:16 | Outpatient (REF) | payer MEDICARE, MEDICAID, SELFPAY ==
[2023-02-11 09:37] LABS: MANUAL DIFF FLAG NO
[2023-02-11 10:52] LABS: Basophils Percent Auto 0.4 % (0-2); Eosinophils Absolute Auto 0.2 X10*3/uL (0.0-0.4); Eosinophils Percent Auto 1.9 % (0-4); Hematocrit 39.4 % (37.0-47.0); Hemoglobin 12.9 g/dl (12.0-16.0); Imm Gran Abs Auto 0.04 X10*3/uL (0.00-0.03); Imm Gran Pct Auto 0.5 % (0.0-0.4); Lymphocytes Absolute Auto 1.8 X10*3/uL (1.2-4.9); Lymphocytes Percent Auto 21.7 % (20-40); Mean Corpuscular HGB Conc 32.7 g/dl (31.0-35.0); Mean Corpuscular Volume 91.6 fL (80.0-98.0); Mean Platelet Volume 10.3 fL (9.4-12.3); Monocytes Absolute Auto 0.4 X10*3/uL (0.1-1.2); Neutrophils Percent Auto 70.5 % (45-73); Platelet Count 220 X10*3/uL (160-400); Red Cell Distribution Width 13.5 % (11.0-16.0); White Blood Count 8.5 X10*3/uL (4.8-10.8)
[2023-02-11 11:55] LABS: Alanine Aminotransferase 16 U/L (0-31); Anion Gap 13 (12-20); Aspartate Amino Transferase 14 U/L (5-31); Blood Urea Nitrogen 15 mg/dL (9-16); Calcium 9.2 mg/dL (8.4-10.2); Carbon Dioxide 27 mmol/L (22-29); Chloride 105 mmol/L (96-108); Cholesterol 143 mg/dL; Estimated Glomerular Filt Rate > 60; Glucose Fasting 96 mg/dL (60-99); HDL Cholesterol 42 mg/dL; LDL Cholesterol Calculated 79 mg/dl; Sodium 141 mmol/L (135-145); Triglycerides 113 mg/dL; Vitamin D 25-OH Total 37.3 ng/mL (>30)
== END 2023-02-11 09:17 | disposition home or self-care (01) ==
LOC: HO.LAB 09:16
PROVIDERS: PCP Internal Medicine; Visit Provider Internal Medicine
DX: E89.40 Asymptomatic postprocedural ovarian failure (principal); I71.20 Thoracic aortic aneurysm, without rupture, unspecified; E66.01 Morbid (severe) obesity due to excess calories; G25.81 Restless legs syndrome; I10 Essential (primary) hypertension; D64.9 Anemia, unspecified
CPT/HCPCS: 36415; 80048; 80061; 82306; 84450; 84460; 85025

== ENCOUNTER 2023-02-21 11:47 | Outpatient (REF) | payer MEDICARE, MEDICAID, SELFPAY ==
[2023-02-21 15:29] LABS: CT PCR NOT DETECTED (Not Detect.); NG PCR NOT DETECTED (Not Detect.)
[2023-02-23 03:43] LABS: Syphilis Screen Nonreactive (Nonreactive)
[2023-02-23 04:19] LABS: HBS Num1 0.21 mIU/mL (0-7.99); HBc Num1 0.06 S/CO (0.00-0.79); HBsAGNum1 0.38 S/CO (0.00-0.99); HIV AB/AG Nonreactive (Nonreactive); HIV Num 1 0.06 S/CO (0.00-0.99); Hepatitis B Core Antibody Nonreactive (Nonreactive); Hepatitis B Surface Antigen Negative (Negative); ~HepC Num1 0.16 S/CO (0.00-0.79); ~Hepatitis B Surface Antibody NONREACTIVE (Nonreactive); ~Hepatitis C Antibody Nonreactive (Nonreactive)
== END 2023-02-21 11:48 | disposition home or self-care (01) ==
LOC: HO.HMGCLDS 11:47
PROVIDERS: PCP Internal Medicine; Visit Provider Internal Medicine
DX: Z20.2 Contact with and (suspected) exposure to infections with a predominantly sexual mode of transmission (principal); Z11.59 Encounter for screening for other viral diseases; Z72.89 Other problems related to lifestyle
CPT/HCPCS: 0353U; 86704; 86706; 86780; 86803; 87340; 87389

== ENCOUNTER 2023-05-17 11:02 | Outpatient (REF) | payer MEDICARE, MEDICAID, SELFPAY | END 2023-05-17 11:03 | disposition home or self-care (01) | LOC: HO.HAP 11:02 | PROVIDERS: Visit Provider Internal Medicine | DX: Z46.1 Encounter for fitting and adjustment of hearing aid (principal); H90.42 Sensorineural hearing loss, unilateral, left ear, with unrestricted hearing on the contralateral side | CPT/HCPCS: V5266 ==

== ENCOUNTER 2023-11-09 16:19 | Outpatient (AMB) | payer MEDICARE, MEDICAID, SELFPAY ==
--- NOTE | 2023-11-09 16:12 | MHC.PC.OV ---
Intake Visit Reasons: Anxiety [phone]/ android Intake Note: Pt is appt is for Anxiety Allergies cephalexin Allergy (Severe, Verified 11/09/23 16:31) hives hydrocodone [From Vicodin] Allergy (Severe, Verified 11/09/23 16:31) Hives aspirin [From Nixon Aspirin] Allergy (Mild, Verified 11/09/23 16:31) Eye Swelling Penicillins Allergy (Verified 11/09/23 16:31) Unknown meloxicam Adverse Reaction (Verified 11/09/23 16:31) Swelling Medication List - Last Reconciled 11/09/23 by Danya Oneil MD alpha lipoic acid 600 mg PO DAILY azelastine 1 spray intranasal BID blood pressure monitor Electronic BP monitor with Extra Large cuff cholecalciferol (vitamin D3) 100 mcg PO DAILY ferrous fumarate 324 mg PO DAILY fluticasone propionate 50 mcg/actuation 1 spray intranasal DAILY loperamide (Anti-Diarrheal (loperamide)) 2 mg PO Q6H PRN loratadine 10 mg PO DAILY metoprolol succinate ER 50 mg PO DAILY olmesartan 5 mg PO DAILY oxybutynin chloride ER 15 mg PO DAILY ropinirole 2 mg PO BEDTIME simethicone (Gas Relief (simethicone)) 80 mg PO BID-QID PRN Tobacco use date assessed: 11/09/23 Dental Screening Dental Screen Date: 11/09/23 Did you have a dental visit in the last 12 months?: No Did you have a dental problem in the last 6 months where you did not have access to dental care?: No Was dental information given to patient?: No HPI Anxiety [phone]/ android HPI Details 48-year-old lady here today complaining of worsening anxiety and depression. Has been having marital problems, with worsening anxiety attacks , anhedonia, mood swings. She has an appt on 11/25/23 with a psychiatrist, set up by her therapist, Yina, at [facility] .Has been on Zoloft and Effexor in the past but it made her very sleepy and made her gain weight. She also reports that ropinirole at 1 mg not helping control her restless legs at night. Has increased dose to 2 mg at bedtime, which has been helping, needs a refill on her prescription. [facility] Medical History (Updated 11/09/23 @ 16:51 by Danya Oneil MD) Mixed anxiety and depressive disorder Anemia Acute medial meniscus tear of right knee Refused influenza vaccine Pain in right foot Uterine fibroid Surgical menopause Vitamin D deficiency Ascending aortic aneurysm Morbid obesity Obstructive sleep apnea on CPAP Urinary, incontinence, stress female Restless leg syndrome Essential hypertension Surgical History Hx of cholecystectomy History of cervical spinal surgery History of section History of partial hysterectomy History of tubal ligation Family History Father Heart disease Substance use disorder Mental health disorder Mother Alive and well Substance use disorder Mental health disorder Sister Mental health disorder Son Mental health disorder Daughter No problems noted. Social History Housing: House Alcohol intake: current Alcohol intake frequency: holidays/special occasions only Alcohol type: wine and hard liquor Patient Tobacco Use Status: Former Tobacco user e-Cigarette/Vaping Use: Never Used Substance Use Type: Marijuana service: No Current occupational status: disabled Cognitive needs: No Hearing needs: No Vision needs: No Questionnaire PHQ-9 Over the last 2 weeks, how often have you been bothered by any of the following problems? 1. Little interest or pleasure in doing things: more than half the days 2. Feeling down, depressed, or hopeless: more than half the days 3. Trouble falling or staying asleep, or sleeping too much: several days 4. Feeling tired or having little energy: several days 5. Poor appetite or overeating: several days 6. Feeling bad about yourself - or that you are a failure or have let yourself or your family down: several days 7. Trouble concentrating on things, such as reading the newspaper or watching television: several days 8. Moving or speaking so slowly that other people could have noticed. Or the opposite - being so fidgety or restless that you have been moving around a lot more than usual: not at all 9. Thoughts that you would be better off or of hurting yourself in some way: not at all Total score: 9 Depression Screening Interpretation: Positive Depression Screening Follow-up: Existing condition, In treatment, New Medication prescribed and Community Mental Health Worker F/U (Sees a therapist and has an appointment to see psychiatrist at [facility] on 11/25/2023) Depression Screening Done: Yes 81026 - PHQ-9 Billing: Yes Source: Developed by Drs. Lauro Noriega, Sissy Florian, Sanjeev Vallejo and colleagues, with an educational mindi from [employer]. Thrive Questionnaire Date Thrive assessed: 02/21/23 GRANT-7 AMB Questionnaire GRANT-7 Date GRANT - 7 assessed: 11/09/23 Feeling nervous, anxious, or on edge: 2 = More than half the days Not being able to stop or control worryin = Several days Worrying too much about different things: 2 = More than half the days Trouble relaxin = Several days Being so restless that it is hard to sit still: 0 = Not at all Becoming easily annoyed or irritable: 2 = More than half the days Feeling afraid as if something awful might happen: 1 = Several days Total GRANT-7 score (0-4 normal; 5-9 mild; 10-14 moderate; 15-21 severe): 9 Source: Developed by Drs. Lauro Noriega, Sissy Florian, Sanjeev Vallejo and colleagues, with an educational mindi from [employer]. GRANT-7 Assessment Billing GRANT-7 Assessment Tool: GRANT-7 Assessment 64011 Review of Systems Const All systems reviewed & are unremarkable except as noted in HPI and below Physical exam (Primary Care) Tobacco/Smoking Status: Tobacco use Status Tobacco use date assessed 11/09/23 11/09/23 16:18 Patient Tobacco Use Status Former Tobacco user 11/09/23 16:13 e-Cigarette/Vaping Use Never Used 11/09/23 16:13 Depression Screening Interpretation: Positive Depression Screening Follow-up: Existing condition, In treatment, New Medication prescribed and Community Mental Health Worker F/U (Sees a therapist and has an appointment to see psychiatrist at [facility] on 11/25/2023) Thrive Assessment: Date of Thrive Assessment Date Thrive assessed 02/21/23 11/09/23 16:13 Telehealth Telehealth Location of provider rendering services: practice address Location of patient: address on file Patient Identification confirmed using: Name, : Yes Telehealth method: video Patient verbally consented to treatment: Yes Patient verbally consented to billing insurance company: Yes Patient informed of any privacy concerns related to visit: Yes Minutes spent on Phone/Video with Pt.: 15 Assessment and Plan Assessment & Plan (1) Mixed anxiety and depressive disorder: Code(s): F41.8 - Other specified anxiety disorders Plan: Will start on bupropion XL 150 mg per tablet, to take once a day in a.m. already has an appointment set up to see psychiatrist at [facility] in counseling on 11/25/2023, per patient. Already being seen by therapist, Yina, at the same facility. To follow-up with psychiatrist afterwards (2) Restless leg syndrome: Code(s): G25.81 - Restless legs syndrome Plan: , prescription refill sent for ropinirole dose which was increased to 2 mg per tablet to take at bedtime Medications: New bupropion HCl 150 mg PO QAM 30 tabs 0RF ropinirole administer 1-3 hours before bedtime 2 mg (2 x 1 mg) PO BEDTIME 30 tabs 0RF Coding Level of Care Code Tele Est Pt Level 3 (79884) Diagnoses Mixed anxiety and depressive disorder F41.8 Restless leg syndrome G25.81 Additional Codes GRANT-7 Assessment Billing - GRANT-7 Assessment Tool: GRANT-7 Assessment 72764 ([id number])
== END 2023-11-09 16:56 | disposition home or self-care (01) ==
LOC: HO.HMGC 16:19
PROVIDERS: PCP Internal Medicine; Visit Provider Internal Medicine
DX: F41.8 Other specified anxiety disorders (principal); G25.81 Restless legs syndrome
CPT/HCPCS: 96127; 99213

== ENCOUNTER 2024-02-08 08:20 | Outpatient (AMB) | payer MEDICARE, MEDICAID, SELFPAY ==
--- NOTE | 2024-02-08 08:34 | A.OFFVIS_ITS ---
Intake Vital Signs 02/08/24 08:44 Height 5 ft Weight 279 lb BMI 54.5 BP 110/70 Blood Pressure Location Lt brachial Position Sitting Pulse 54 Pulse Source Pulse Oximeter Pulse Oximetry (%) 96 Oxygen Delivery Method Room Air Intake Visit Reasons: AWV Intake Note: Pt is here today for her AWV: Last mammogram 02/18/22 Allergies cephalexin Allergy (Severe, Verified 04/08/24 21:46) hives hydrocodone [From Vicodin] Allergy (Severe, Verified 04/08/24 21:46) Hives aspirin [From Nixon Aspirin] Allergy (Mild, Verified 04/08/24 21:46) Eye Swelling Penicillins Allergy (Verified 04/08/24 21:46) Unknown meloxicam Adverse Reaction (Verified 04/08/24 21:46) Swelling Medication List - Last Reconciled 02/08/24 by Danya Oneil MD alpha lipoic acid 600 mg PO DAILY azelastine 1 spray intranasal BID blood pressure monitor Electronic BP monitor with Extra Large cuff bupropion HCl XL 150 mg PO QAM cholecalciferol (vitamin D3) 100 mcg PO DAILY ferrous fumarate 324 mg PO DAILY fluticasone propionate 50 mcg/actuation 1 spray intranasal DAILY loratadine 10 mg PO DAILY metoprolol succinate ER 50 mg PO DAILY multivitamin 1 tab PO DAILY olmesartan 5 mg PO DAILY oxybutynin chloride ER 15 mg PO DAILY ropinirole 2 mg PO BEDTIME simethicone (Gas Relief (simethicone)) 80 mg PO BID-QID PRN HPI AWV HPI Details AWV ?48 year old lady with PTSD, history of bipolar disorder, IBS history of ascending aortic aneurysm, obstructive sleep apnea on CPAP, restless legs syndrome and essential hypertension swell as morbid obesity, here today for her initial ? Annual Wellness Visit, She is overdue for screening mammogram, last done in 02/18/2022, she is also overdue for her screening colonoscopy , referred to Dr. Okeefe today. Up-to-date with her lipids screening and diabetes screening done 02/11/2023 which came back within normal limits. She no longer gets cervical cancer screenings as she has had a total hysterectomy. She is up-to-date with her Tdap declined COVID vaccination, did not get her influenza vaccine this year. She is up-to-date with her bone density scan done 03/14/2023. ? Medical / Social History Reviewed? Past Medical History ?Yes . ? [place] of Care / Care Team list updated ?Yes . ? Surgical/Hospitalization History ?Yes . ? Current Medications (including OTC and supplements) ?Yes . ? Family History ?Yes . ? Tobacco Control form ?Yes . ? AUDIT-C (Alcohol use) form ?Yes . ? Illicit drug use in Social History ?Yes . ? Current diagnosis of depression? ?has PTSD and Bipolar disorder ? Appropriate PHQ2/PHQ9 completed ?Yes . ? Data entered by ?Automobile Assembly Supervisor and reviewed by provider ? Fall Risk ? Fall History? Have you had any falls with injury in the past year? ?yes . ? Have you had two or more falls in the past year? yes, while walking her dog, stepping on a puddle ? Fall Risk Assessment: ?yes ? HRA filled out by the patient, reviewed by Provider and scanned. ? AWV ? Balance? Romberg ?negative ? Tandem walk ?Yes . ? Walk and Turn ?Yes . ? Rise from sit to stand ?Yes . ?Vision? Corrective lens ?Yes ? Vision screen ? Up-to-date, has an appointment Dr Thornton ?Hearing? Whisper test ?pass . ?Written Plan?Completed. See Patient Documents.? [facility] Medical History (Updated 04/10/24 @ 00:02 by Background Damarjan) Incisional hernia PTSD (post-traumatic stress disorder) Bipolar disorder Acute medial meniscus tear of right knee Refused influenza vaccine Pain in right foot Uterine fibroid Surgical menopause Vitamin D deficiency Ascending aortic aneurysm Morbid obesity Obstructive sleep apnea on CPAP Urinary, incontinence, stress female Restless leg syndrome Essential hypertension Surgical History Hx of cholecystectomy History of cervical spinal surgery History of section History of partial hysterectomy History of tubal ligation Family History Father Heart disease Substance use disorder Mental health disorder Mother Alive and well Substance use disorder Mental health disorder Sister Mental health disorder Son Mental health disorder Daughter No problems noted. Social History Housing: House Alcohol intake: current Alcohol intake frequency: holidays/special occasions only Alcohol type: wine and hard liquor Patient Tobacco Use Status: Former Tobacco user Smoked in Last 30 Days: No e-Cigarette/Vaping Use: Never Used Use of substances other than those prescribed or required for medical reasons: No Substance Use Type: Marijuana Advance Directives: Yes Advance Directives on File: Yes Advance Directives Date on File: 02/08/24 Patient : No service: No Current occupational status: disabled Cognitive needs: No Hearing needs: No Vision needs: No Female Reproductive History Menstrual Menopause type: surgical Questionnaire Medicare Wellness Checkup What gender do you identify with?: female During the past 4 weeks, how much have you been bothered by emotional problems such as feeling anxious, depressed, irritable, sad or downhearted, and blue?: quite a bit During the past 4 weeks, has your physical & emotional health limited your social activities with family, friends, neighbors, or groups?: moderately During the past 4 weeks, how much bodily pain have you generally had?: severe pain During the past 4 weeks, was someone available to help you if you needed & wanted help?: yes, a little During the past 4 weeks, what was the hardest physical activity you could do for at least 2 minutes?: moderate Can you get to places out of walking distance without help? (For eg., can you travel alone on buses, taxis or drive your car?): Yes Can you go shopping for groceries or clothes without someone's help?: Yes Can you prepare your own meals?: No Can you do your housework without help?: No Because of any health problems, do you need the help of another person with your personal care needs such as eating, bathing, dressing or getting around the house?: Yes Can you handle your own money without help?: Yes During the past 4 weeks, how would you rate your health in general?: fair During the past 4 weeks how have things been going for you?: good & bad parts about equal Are you having difficulties driving your car?: no Do you always fasten your seat belt when you are in a car?: yes, usually During past 4 weeks, have you been bothered by the following: never: Teeth or denture problems? and Problems using the telephone?, seldom: Falling or dizzy when standing up and Tiredness or fatigue?, sometimes: Trouble eating well? and often: Sexual problems? Have you fallen 2 or more times in the past year?: Yes Are you afraid of falling?: Yes Are you a smoker?: no During the past 4 weeks, how many drinks of wine, beer, or other alcoholic beverages did you have?: 1 drink or less per week Do you exercise for about 20 minutes 3 or more times a week?: yes, some of the time Have you been given information to help with the following?: no: Hazards in your house that might hurt you? and no: Keeping track of your medications? How often do you have trouble taking medicines the way you have been told to take them?: I always take medicine as prescribed How confident are you that you can control & manage most of your health problems?: not very confident What is your race?: Other Mini Mental State Exam (MMSE) Orientation What is the (year) (season) (date) (day) (month)?: year (2023), season (spring), date (02/08/24), day (tuesday) and month (january) Where are we (state) (county) (town or city) (hospital) (floor)?: state ([place]), county ([place]), town or city ([place]) and hospital/clinic ([facility]) Score Score: 9 Activity of Daily Living Bathing - sponge bath, tub bath or shower: receives no assistance (gets in/out by self, if usual bathing means Dressing - getting clothes from closets & drawers, including inner/outer garments & fasteners.: gets clothes & gets completely dressed without help Toileting - going to the 'toilet room' for urine/bowel elimination & cleaning self/arranging clothes: goes to toilet room, cleans self, arranges clothes without help Transfer: moves in & out of bed and chair without help (may use support object) Continence: has occasional 'accidents' Feeding: feeds self without help Total Score: 0 Information obtained from: patient Using telephone: independent Traveling: independent Shopping: independent Preparing meals: independent Housework: independent Taking medicine: independent Managing money: independent PHQ-9 Over the last 2 weeks, how often have you been bothered by any of the following problems? 1. Little interest or pleasure in doing things: several days 2. Feeling down, depressed, or hopeless: several days 3. Trouble falling or staying asleep, or sleeping too much: several days 4. Feeling tired or having little energy: several days 5. Poor appetite or overeating: not at all 6. Feeling bad about yourself - or that you are a failure or have let yourself or your family down: several days 7. Trouble concentrating on things, such as reading the newspaper or watching television: several days 8. Moving or speaking so slowly that other people could have noticed. Or the opposite - being so fidgety or restless that you have been moving around a lot more than usual: not at all 9. Thoughts that you would be better off or of hurting yourself in some way: not at all Total score: 6 Depression Screening Interpretation: Positive Depression Screening Follow-up: Existing condition, In treatment, New Medication prescribed and Community Mental Health Worker F/U (Sees a therapist and has an appointment to see psychiatrist at [facility] & counseling on 11/25/2023) Depression Screening Done: Yes 31377 - PHQ-9 Billing: Yes Source: Developed by Drs. Lauro Noriega, Sissy Florian, Sanjeev Vallejo and colleagues, with an educational mindi from [employer] Physical Exam Vital Signs: Last Vital Signs Pulse 54 02/08/24 08:44 BP 110/70 02/08/24 08:44 Pulse Ox 96 02/08/24 08:44 Oxygen Delivery Method Room Air 02/08/24 08:44 BMI result Body Mass Index 54.5 Assessment & Plan Assessment & Plan (1) Encounter for initial annual wellness visit (AWV) in Medicare patient: Code(s): Z00.00 - Encounter for general adult medical examination without abnormal findings Plan: Medical wellness checklist discussed with patient, reviewed and updated. Screening mammogram was ordered today advised to follow-up and schedule appointment with Dr. Okeefe for her screening colonoscopy (2) Irritable bowel syndrome with both constipation and diarrhea: Code(s): K58.2 - Mixed irritable bowel syndrome Plan: Takes simethicone 80 mg 1 tablet twice a day to 4 times a day as needed (3) Encounter for screening for malignant neoplasm of colon: Code(s): Z12.11 - Encounter for screening for malignant neoplasm of colon Plan: Referred to Dr. Okeefe for her colonoscopy screening (4) PTSD (post-traumatic stress disorder): Code(s): F43.10 - Post-traumatic stress disorder, unspecified Plan: Sees her therapist and has an appointment to see psychiatrist on 11/25/2023 at [facility] in counseling (5) Bipolar disorder: Code(s): F31.9 - Bipolar disorder, unspecified Plan: Sees her therapist and has an appointment to see psychiatrist on 11/25/2023 at [facility] in counseling (6) Refused influenza vaccine: Code(s): Z28.21 - Immunization not carried out because of patient refusal Plan: Declined flu vaccine (7) Ascending aortic aneurysm: Code(s): I71.2 - Thoracic aortic aneurysm, without rupture Plan: Followed by cardiology (8) Obstructive sleep apnea on CPAP: Code(s): G47.33 - Obstructive sleep apnea (adult) (pediatric); Z99.89 - Dependence on other enabling machines and devices Plan: Currently on CPAP (9) Restless leg syndrome: Code(s): G25.81 - Restless legs syndrome Plan: Currently taking ropinirole (10) Essential hypertension: Code(s): I10 - Essential (primary) hypertension Plan: Blood pressure at goal of less than 130/80. Continue olmesartan 5 mg daily and metoprolol succinate ER 50 mg daily. Reinforced importance of following a low sodium diet, getting regular exercise, and lowering stress levels. (11) Urinary, incontinence, stress female: Code(s): N39.3 - Stress incontinence (female) (male) Plan: On oxybutynin chloride ER 50 mg daily Orders: Orders MM tomosynthesis screening BI 02/08/24 Z12.31 - Encounter for screening mammogram for malignant neoplasm of breast Referrals Gastroenterology Referral Z12.11 - Encounter for screening for malignant neoplasm of colon, K58.2 - Mixed irritable bowel syndrome Quality Reporting (2019) Depression/Bipolar (159/160/161/177) PHQ-9: Total score: 6 Coding Level of Care Code Medicare First (G0438) Diagnoses Encounter for initial annual wellness visit (AWV) in Medicare patient Z00.00 Irritable bowel syndrome with both constipation and diarrhea K58.2 Encounter for screening for malignant neoplasm of colon Z12.11 PTSD (post-traumatic stress disorder) F43.10 Bipolar disorder F31.9 Refused influenza vaccine Z28.21 Ascending aortic aneurysm I71.2 Obstructive sleep apnea on CPAP G47.33; Z99.89 Restless leg syndrome G25.81 Essential hypertension I10 Urinary, incontinence, stress female N39.3 CPT Codes Advance Care Planning - Time spent: 16-45 minutes ([id number]) Advance Care Planning Advance Care Planning discussion: Completed/Scanned Date of discussion: 02/08/24 Who was present: Patient Forms completed: Health Care Proxy (form given to patient to complete) and MOLST Time spent: 16-45 minutes Actual minutes spent: 16
[2024-02-08 08:44] VITALS: BP 110/70; PULSE 54; O2SAT 96; BMI 54.5
== END 2024-02-08 10:29 | disposition home or self-care (01) ==
PROVIDERS: PCP Internal Medicine; Visit Provider Internal Medicine
DX: Z00.00 Encounter for general adult medical examination without abnormal findings (principal); F31.9 Bipolar disorder, unspecified; I71.20 Thoracic aortic aneurysm, without rupture, unspecified; K58.2 Mixed irritable bowel syndrome; Z12.11 Encounter for screening for malignant neoplasm of colon; F43.10 Post-traumatic stress disorder, unspecified; Z28.21 Immunization not carried out because of patient refusal; G47.33 Obstructive sleep apnea (adult) (pediatric); Z99.89 Dependence on other enabling machines and devices; G25.81 Restless legs syndrome; I10 Essential (primary) hypertension; N39.3 Stress incontinence (female) (male)
CPT/HCPCS: 99497; G0438

== ENCOUNTER 2024-03-08 10:43 | Emergency (ER) | payer MEDICARE, MEDICAID, SELFPAY ==
[2024-03-08 10:46] VITALS: PULSE 60; RESP 19; TEMP 36.6; O2SAT 98; BMI 52.9
[2024-03-08 14:57] VITALS: BP 159/80; PULSE 64; RESP 20; TEMP 36.5; O2SAT 97
--- NOTE | 2024-03-08 15:22 | ED.HA ---
HPI - Headache General Chief Complaint: Headache Stated Complaint: SOB, headache Time Seen by Provider: 03/08/24 15:19 Source: patient Mode of arrival: ambulatory Limitations: no limitations History of Present Illness HPI Narrative: 48 year old female PMH: Ascending aortic aneurysm, PTSD, cerumen impaction, bipolar, NAFL, morbid obesity, knee pain, obstructive sleep apnea, restless leg syndrome, hypertension. She presents to the ER complaining of headache neck pain for 1 week. Patient states she has been taking Tylenol ibuprofen without complete relief but his made it tolerable she states she woke up from sleep and felt like she had a stiff neck ever since then she denies any falls or injuries she denies any weakness numbness she has had no fevers does have a sore throat pain does go to her head. Does have family history of migraines but states she has never had them in the past. Related Data Home Medications ?Medication ?Instructions ?Recorded ?Confirmed cholecalciferol (vitamin D3) 50 100 mcg PO DAILY 12/11/20 02/21/23 mcg (2,000 unit) capsule alpha lipoic acid 600 mg capsule 600 mg PO DAILY 11/09/23 simethicone 80 mg chewable tablet 80 mg PO BID-QID PRN 11/09/23 (Gas Relief (simethicone)) multivitamin 1 tab PO DAILY 02/08/24 Previous Rx's ?Medication ?Instructions ?Recorded fluticasone propionate 50 1 spray intranasal DAILY #48 mL 07/09/21 mcg/actuation nasal spray,suspension blood pressure monitor #1 ea 09/20/22 ferrous fumarate 324 mg (106 mg 324 mg PO DAILY #90 tabs 09/02/23 iron) tablet bupropion HCl 150 mg 24 hr tablet, 150 mg PO QAM #30 tabs 12/11/23 extended release loratadine 10 mg tablet 10 mg PO DAILY #90 tabs 12/24/23 metoprolol succinate 50 mg 50 mg PO DAILY #90 tabs 12/28/23 tablet,extended release 24 hr olmesartan 5 mg tablet 5 mg PO DAILY #90 tabs 12/28/23 oxybutynin chloride 15 mg 15 mg PO DAILY #90 tabs 12/28/23 tablet,extended release 24 hr azelastine 137 mcg (0.1 %) nasal 1 spray intranasal BID #90 mL 01/19/24 spray aerosol ropinirole 2 mg tablet 2 mg PO BEDTIME #30 tabs 03/06/24 Allergies Allergy/AdvReac Type Severity Reaction Status Date / Time cephalexin Allergy Severe hives Verified 03/08/24 10:47 hydrocodone [From Vicodin] Allergy Severe Hives Verified 03/08/24 10:47 aspirin [From Nixon Aspirin] Allergy Mild Eye Verified 03/08/24 10:47 Swelling Penicillins Allergy Unknown Verified 03/08/24 10:47 meloxicam AdvReac Swelling Verified 03/08/24 10:47 Review of Systems Review of Systems: Review of systems: General: Patient denies any fever chills recent illness or falls Musculoskeletal: Denies back pain or body aches or other injuries HEENT: Neck pain and headache, denies runny nose or ear pain Respiratory: denies shortness of breath, cough Cardiovascular: no chest pain or palpitations : denies dysuria, frequency Abdomen: no nausea vomiting denies abdominal pain Extremities: no swelling, no pain Skin: no diaphoresis Yes all other systems are reviewed and are negative [facility] Past Medical History Medical History (Updated 03/08/24 @ 15:35 by Alexy Saunders DO) PTSD (post-traumatic stress disorder) Bipolar disorder Anemia Acute medial meniscus tear of right knee Refused influenza vaccine Pain in right foot Uterine fibroid Surgical menopause Vitamin D deficiency Ascending aortic aneurysm Morbid obesity Obstructive sleep apnea on CPAP Urinary, incontinence, stress female Restless leg syndrome Essential hypertension Surgical History Hx of cholecystectomy History of cervical spinal surgery History of section History of partial hysterectomy History of tubal ligation Family History Family History Father Heart disease Substance use disorder Mental health disorder Mother Alive and well Substance use disorder Mental health disorder Sister Mental health disorder Son Mental health disorder Daughter No problems noted. Social History Social History Housing: House Alcohol intake: current Alcohol intake frequency: holidays/special occasions only Alcohol type: wine and hard liquor Patient Tobacco Use Status: Former Tobacco user Smoked in Last 30 Days: No e-Cigarette/Vaping Use: Never Used Use of substances other than those prescribed or required for medical reasons: Yes Substance Use Type: Marijuana Advance Directives: Yes Advance Directives on File: Yes Advance Directives Date on File: 02/08/24 Do you have a plan to hurt others: No Plan service: No Current occupational status: disabled Cognitive needs: No Hearing needs: No Vision needs: No Physical Exam Vital Signs: Vital Signs: Last Vital Signs Temp 97.7 F 03/08/24 14:57 Pulse 64 03/08/24 14:57 Resp 20 03/08/24 14:57 BP 159/80 H 03/08/24 14:57 Pulse Ox 97 03/08/24 14:57 O2 Del Method Room Air 03/08/24 14:57 BMI result Body Mass Index 52.9 Neurological exam: CN II- XII tested. Patient is alert and oriented to person place and time. Patient has no dysphagia or dysarthia, denies good vision in all four vision [place] no nystagmus on exam, good strength to upper and lower extremities with normal reflexes to brachioradialis, wrist, patella and achilles. Negative romberg, good finger to nose and heel to [place]. General: Well-appearing well-nourished in no signs of distress HEENT: Normocephalic atraumatic Neck: No signs of JVD, no masses no tenderness or lymphadenopathy Cardiovascular: Regular rate and rhythm Respiratory: Clear to auscultation bilaterally Abdomen: Soft nontender no masses Extremities: Normal pedal pulses no signs of edema Skin: Dry warm no rashes Back: No tenderness full ROM Medications Administered Discontinued Medications Generic Name Dose Route Start Last Admin Trade Name Freq PRN Reason Stop Dose Admin Cyclobenzaprine HCl 5 mg 03/08/24 15:32 03/08/24 15:57 Cyclobenzaprine Hcl 5 Mg Tablet PO 03/08/24 15:33 5 mg ONCE ONE Administration Prednisone 60 mg 03/08/24 15:32 03/08/24 15:56 Prednisone 20 Mg Tablet PO 03/08/24 15:33 60 mg ONCE ONE Administration Medical Decision Making Medical Decision Making [facility] Narrative: Until the patient Toradol Differential Diagnosis Differential Diagnoses: The differential diagnosis associated with the presentation includes Headache neck pain I do not think the patient has any signs meningitis she has no fever or infectious symptoms she does look well this all pain related Consult Healthcare Provider Management of the patient was discussed with: Hospitalist Lab Data [facility] Lab Attestation statement: I reviewed the patient's lab results. Labs: Lab Results 03/08/24 Range/Units 16:02 COVID-19 (JAY) Negative (Negative) COVID-19 Clin Com See Note Influenza Type A (KEDAR) Negative (Negative) Influenza Type B (KEDAR) Negative (Negative) Influenza A & B Note See Note S. pyogenes GrpA [facility]AR Negative (Negative) Independent Historian Clinical information obtained from an independent historian. History obtained from or confirmed by: Parent External Record Review External record reviewed: Inpatient record, Office record and Outpatient record Discharge Plan Discharge Clinical Impression: Acute neck pain, Headache, Acute sore throat Patient Disposition: Home, Self-Care Instructions: Pharyngitis (ED), Acute Headache (DC), Neck Pain (ED) Additional Instructions: You were seen today in the emergency department for headache and neck pain. You did undergo strep COVID and flu swabs. He was started on prednisone and Flexeril. The Flexeril as a muscle relaxant it does not actually relax muscles but it will make you sleepy and help you sleep at night. Do not mix with alcohol do not drive while on Flexeril If you have any other concerns please do not hesitate to return to emergency department. Prescriptions: No Action fluticasone propionate 50 mcg/actuation spray,suspension 1 spray intranasal DAILY Qty: 48 1RF (DME) blood pressure monitor Kit See Rx Instructions .Route Qty: 1 0RF Rx Instructions: Electronic BP monitor with Extra Large cuff ferrous fumarate 324 mg (106 mg iron) tablet 324 mg PO DAILY Qty: 90 0RF Rx Instructions: Schedule next PCP appt for future refills bupropion HCl 150 mg tablet extended release 24 hr 150 mg PO QAM Qty: 30 2RF loratadine 10 mg tablet 10 mg PO DAILY Qty: 90 1RF metoprolol succinate 50 mg tablet extended release 24 hr 50 mg PO DAILY Qty: 90 1RF olmesartan 5 mg tablet 5 mg PO DAILY Qty: 90 1RF oxybutynin chloride 15 mg tablet extended release 24hr 15 mg PO DAILY Qty: 90 1RF azelastine 137 mcg (0.1 %) aerosol,spray 1 spray intranasal BID Qty: 90 1RF ropinirole 2 mg tablet 2 mg PO BEDTIME Qty: 30 5RF Rx Instructions: administer 1-3 hours before bedtime cholecalciferol (vitamin D3) 50 mcg (2,000 unit) capsule 100 mcg PO DAILY multivitamin Tablet 1 tab PO DAILY alpha lipoic acid 600 mg capsule 600 mg PO DAILY simethicone [Gas Relief (simethicone)] 80 mg tablet,chewable 80 mg PO BID-QID PRN Print Language: Tajik
[2024-03-08] MEDS: predniSONE 20 MG TABLET 60 MG PO (15:56)
[2024-03-08] MEDS: Cyclobenzaprine HCl 5 MG TABLET PO (15:57)
[2024-03-08 16:15] LABS: IDNOW Serial# 08D9AD1C; Strep A Nucleic Acid Negative (Negative)
--- NOTE | 2024-03-08 16:19 | PC.NURSE ---
pt alert and oriented, ambulatory. TUBBS and neck pain for 1 week week, pt using tylenol to elp control pain. swabs sent and pt medicated per KEL
[2024-03-08 16:22] LABS: IDNOW Serial# 152EDE1D; Influenza A Negative (Negative); Influenza B2 Negative (Negative)
[2024-03-08 16:23] LABS: COVID-19 Test Negative (Negative); IDNOW Serial# 9DB6401D
[2024-03-08 16:42] VITALS: BP 159/80; PULSE 64; RESP 20; TEMP 36.5; O2SAT 97
== END 2024-03-08 17:01 | disposition home or self-care (01) ==
PROVIDERS: Emergency Provider Student in an Organized Health Care Education/Training Program; PCP Internal Medicine
DX: R51.9 Headache, unspecified (principal); R06.02 Shortness of breath; M54.2 Cervicalgia; Z79.899 Other long term (current) drug therapy; Z87.891 Personal history of nicotine dependence; Z11.52 Encounter for screening for COVID-19
CPT/HCPCS: 87502; 87635; 87651; 99283; 99284

== ENCOUNTER 2024-03-14 15:19 | Outpatient (AMB) | payer MEDICARE, MEDICAID, SELFPAY ==
--- NOTE | 2024-03-14 15:39 | AM.OFFWIN_ITS ---
Intake Vital Signs 03/14/24 15:41 Height 5 ft BP 130/80 Blood Pressure Location Rt brachial Position Sitting Pulse 76 Pulse Source Pulse Oximeter Temp 98.6 F Temp Source Oral Pulse Oximetry (%) 98 Intake Visit Reasons: EP headache and trouble swallowing Intake Note: pt is here for headache, trouble swallowing, and feels like tongue is swollen. patient went to ED had viral swab, strep and nose swabs and all negative but still experiencing this issue Patient Tobacco Use Status: Former Tobacco user Allergies cephalexin Allergy (Severe, Verified 03/14/24 15:45) hives hydrocodone [From Vicodin] Allergy (Severe, Verified 03/14/24 15:45) Hives aspirin [From Nixon Aspirin] Allergy (Mild, Verified 03/14/24 15:45) Eye Swelling Penicillins Allergy (Verified 03/14/24 15:45) Unknown meloxicam Adverse Reaction (Verified 03/14/24 15:45) Swelling Do you need a note to return to daycare/school/sports/work: No HPI HPI Comments History of Present Illness Details She presents to the office with ST Ongoing x 3 weeks and believes it all started after she had sexual intercourse Starts after this she started with L sided headache, L sided sore throat and L sided neckache Symptoms are relatively constant Patient went to the ER on 03/08 and had full workup for strep/covid/flu etc She was given prednisone and flexeril and was taking which helps States still has L sided headache L sided sore throat and tonsilar swelling Taking Tylenol as well No HT or LOC or double vision States some fatigue, body aches associated Has not called PCP [facility] Medical History (Updated 03/14/24 @ 16:15 by Radha Ortiz PA-C) PTSD (post-traumatic stress disorder) Bipolar disorder Anemia Acute medial meniscus tear of right knee Refused influenza vaccine Pain in right foot Uterine fibroid Surgical menopause Vitamin D deficiency Ascending aortic aneurysm Morbid obesity Obstructive sleep apnea on CPAP Urinary, incontinence, stress female Restless leg syndrome Essential hypertension Surgical History Hx of cholecystectomy History of cervical spinal surgery History of section History of partial hysterectomy History of tubal ligation Family History Father Heart disease Substance use disorder Mental health disorder Mother Alive and well Substance use disorder Mental health disorder Sister Mental health disorder Son Mental health disorder Daughter No problems noted. Social History Housing: House Alcohol intake: current Alcohol intake frequency: holidays/special occasions only Alcohol type: wine and hard liquor Patient Tobacco Use Status: Former Tobacco user e-Cigarette/Vaping Use: Never Used Substance Use Type: Marijuana Advance Directives Date on File: 02/08/24 service: No Current occupational status: disabled Cognitive needs: No Hearing needs: No Vision needs: No Review of Systems Const Denies chills, Denies fatigue, Denies fever(s) and Reports headache(s) Eyes Denies diplopia and Denies loss of vision ENT Reports headache(s), Denies nasal discharge, Reports neck pain (L sided ache), Reports odynophagia and Reports sore throat Card Denies chest pain and Denies syncope Resp Denies cough GI Reports odynophagia Musc Reports neck pain (L sided ache) Skin/Breast Denies rash and Denies sores Neuro Denies syncope, Reports headache(s) and Denies loss of vision Endo Denies fatigue Physical Exam Vital Signs: Last Vital Signs Temp 98.6 F 03/14/24 15:41 Pulse 76 03/14/24 15:41 BP 130/80 03/14/24 15:41 Pulse Ox 98 03/14/24 15:41 General: Non-toxic, NAD. Speaking full sentences. Skin: Warm dry throughout Eye: PERRL, EOMI HENT: Airway patent. Uvula midline. + white coating to tongue and some to L lateral gingivae. No pharyngeal erythema or edema. No GAUGE CHECKER. No sublingual edema or mass Bilateral canals clear. TM non-erythematous, non-bulging. No TM perforation or hemotympanum noted. Lymph: No lymphadenopathy Respiratory: CTA bilaterally. No wheezes, rales or rhonchi Cardiac: RRR. No murmur Abdominal: BS present. Non-tender throughout. No palpable masses. No abdominal distention or pusatile mass. MSK: No midline tenderness. Full ROM extremities. Neurology: A/O. CN 2-12 grossly intact. Finger to nose tracing equal. Negative pronator drift. Able to maintain balance with rhomberg. No aphasia or facial droop. 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 Gait without abnormality Psych: Good mood and affect Assessment & Plan Assessment & Plan (1) Pharyngitis: Code(s): J02.9 - Acute pharyngitis, unspecified Qualifiers: Pharyngitis/tonsillitis etiology: unspecified etiology Qualified Code(s): J02.9 - Acute pharyngitis, unspecified Plan: Already had rapid strep in ER and viral swab which was negative. Centor score is -1 Will send throat culture No GAUGE CHECKER on exam on concern for ludwigs. Airway is patent without hoarseness or drooling on exam. Pt non-toxic appearing Lungs CTA (2) Thrush: Code(s): B37.0 - Candidal stomatitis Plan: Nystatin; swish and spit x 1 week F/U with PCP; discussed 1-2 week follow up is appropriate No neurological deficit on examination Discused ER s/s that warrant evaluation Pt gave verbal understanding and has no additional questions at time of discharge Orders: Orders Throat Culture Today J02.9 - Acute pharyngitis, unspecified Medications: New nystatin swish and spit 4 mL PO QID 7 days 112 mL 0RF Coding Level of Care Code Est Pt Level 3 (64120) Diagnoses Pharyngitis, unspecified etiology J02.9 Pharyngitis/tonsillitis etiology: unspecified etiology Thrush B37.0
[2024-03-14 15:41] VITALS: BP 130/80; PULSE 76; TEMP 37; O2SAT 98
== END 2024-03-14 16:08 | disposition home or self-care (01) ==
PROVIDERS: PCP Internal Medicine; Visit Provider Physician Assistant
DX: J02.9 Acute pharyngitis, unspecified (principal); B37.0 Candidal stomatitis
CPT/HCPCS: 99213

== ENCOUNTER 2024-03-14 16:06 | Outpatient (REF) | payer MEDICARE, MEDICAID, SELFPAY | END 2024-03-14 16:07 | disposition home or self-care (01) | LOC: HO.LAB 16:06 | PROVIDERS: Visit Provider Physician Assistant | DX: J02.9 Acute pharyngitis, unspecified (principal) | CPT/HCPCS: 87070 ==

== ENCOUNTER 2024-04-02 09:02 | Outpatient (AMB) | payer MEDICARE, MEDICAID, SELFPAY ==
[2024-04-02 08:54] VITALS: BP 132/78; PULSE 60; O2SAT 95; BMI 52.6
--- NOTE | 2024-04-02 08:54 | MHC.PC.OV ---
Vital Signs 04/02/24 08:54 Height 5 ft Weight 269 lb 5 oz BMI 52.6 BP 132/78 Blood Pressure Location Rt brachial Position Sitting Pulse 60 Pulse Source Pulse Oximeter Pulse Oximetry (%) 95 Oxygen Delivery Method Room Air Intake Visit Reasons: F/U from [place] visit on 03/14/24 Intake Note: Pt is here today for follow up from walk in on 03/14/24 Allergies cephalexin Allergy (Severe, Verified 04/02/24 09:37) hives hydrocodone [From Vicodin] Allergy (Severe, Verified 04/02/24 09:37) Hives aspirin [From Nixon Aspirin] Allergy (Mild, Verified 04/02/24 09:37) Eye Swelling Penicillins Allergy (Verified 04/02/24 09:37) Unknown meloxicam Adverse Reaction (Verified 04/02/24 09:37) Swelling Medication List - Last Reconciled 04/02/24 by Danya Oneil MD alpha lipoic acid 600 mg PO DAILY azelastine 1 spray intranasal BID blood pressure monitor Electronic BP monitor with Extra Large cuff bupropion HCl XL 150 mg PO QAM cholecalciferol (vitamin D3) 100 mcg PO DAILY cyclobenzaprine 10 mg PO TID PRN ferrous fumarate 324 mg PO DAILY fluticasone propionate 50 mcg/actuation 1 spray intranasal DAILY loratadine 10 mg PO DAILY metoprolol succinate ER 50 mg PO DAILY multivitamin 1 tab PO DAILY olmesartan 5 mg PO DAILY oxybutynin chloride ER 15 mg PO DAILY ropinirole 2 mg PO BEDTIME simethicone (Gas Relief (simethicone)) 80 mg PO BID-QID PRN Tobacco use date assessed: 04/02/24 Dental Screening Dental Screen Date: 04/02/24 Did you have a dental visit in the last 12 months?: No Did you have a dental problem in the last 6 months where you did not have access to dental care?: No Was dental information given to patient?: Patient has dentist HPI F/U from [place] visit on 03/14/24 HPI Details 48-year-old lady here today for follow-up visit after recent visit to the walk-in clinic 03/14/2024. She was diagnosed to have acute pharyngitis, likely viral, with strep negative and throat culture came back with No Group A Beta-hemolytic Streptococci isolated. She was told that she had thrush, given nystatin oral solution to use, which patient states did not help. Still complaining of pain in her left ear and left cheek, with tongue still feeling swollen. Denies any fever, no cough, no shortness of breath [facility] Medical History (Updated 04/02/24 @ 09:56 by Danya Oneil MD) Incisional hernia PTSD (post-traumatic stress disorder) Bipolar disorder Acute medial meniscus tear of right knee Refused influenza vaccine Pain in right foot Uterine fibroid Surgical menopause Vitamin D deficiency Ascending aortic aneurysm Morbid obesity Obstructive sleep apnea on CPAP Urinary, incontinence, stress female Restless leg syndrome Essential hypertension Surgical History Hx of cholecystectomy History of cervical spinal surgery History of section History of partial hysterectomy History of tubal ligation Family History Father Heart disease Substance use disorder Mental health disorder Mother Alive and well Substance use disorder Mental health disorder Sister Mental health disorder Son Mental health disorder Daughter No problems noted. Social History Housing: House Alcohol intake: current Alcohol intake frequency: holidays/special occasions only Alcohol type: wine and hard liquor Patient Tobacco Use Status: Former Tobacco user e-Cigarette/Vaping Use: Never Used Substance Use Type: Marijuana Advance Directives Date on File: 02/08/24 service: No Current occupational status: disabled Cognitive needs: No Hearing needs: No Vision needs: No Questionnaire Thrive Questionnaire Date Thrive assessed: 02/21/23 AUDIT C Alcohol Use Questionnaire (AUDIT-C) 1. How often do you have a drink containing alcohol?: Never 3. How often do you have six or more drinks on one occasion?: Never Total Score: 0 Score Reviewed/Action Taken: Yes GRANT-7 AMB Questionnaire GARNT-7 Date GRANT - 7 assessed: 11/09/23 Source: Developed by Drs. Lauro Noriega, Sissy Florian, Sanjeev Vallejo and colleagues, with an educational mindi from [email or web address]. Review of Systems Const All systems reviewed & are unremarkable except as noted in HPI and below Physical exam (Primary Care) Vital Signs: Last Vital Signs Pulse 60 04/02/24 08:54 BP 132/78 04/02/24 08:54 Pulse Ox 95 04/02/24 08:54 Oxygen Delivery Method Room Air 04/02/24 08:54 BMI result Body Mass Index 52.6 Tobacco/Smoking Status: Tobacco use Status Tobacco use date assessed 04/02/24 04/02/24 09:16 Patient Tobacco Use Status Former Tobacco user 04/02/24 08:54 e-Cigarette/Vaping Use Never Used 04/02/24 08:54 Thrive Assessment: Date of Thrive Assessment Date Thrive assessed 02/21/23 04/02/24 08:54 Const Other: Alert oriented x3, no acute distress noted ambulatory normal gait, Nutritional Appearance: obese morbidly obese [facility] Head: Yes normocephalic and Yes atraumatic Ears: external ears normal, Abnormal EAC present erythema on the left and EAC tenderness on the left; no foreign body and no otic discharge and TM abnormal erythematous on the left Face and sinus: Yes sinus tenderness (Left maxillary area) Mouth: Normal oral and palatal mucosa present, tongue normal, oropharynx normal and moist mucous membranes Eyes General: appearance normal, both eyes and all related structures Neck Neck: Yes full ROM, Yes no lymphadenopathy and Yes supple Resp Auscultation: clear to auscultation bilaterally Cardio Other: S1-S2 present regular rate and rhythm Assessment and Plan Assessment & Plan (1) Acute sinus infection: Code(s): J01.90 - Acute sinusitis, unspecified Plan: Prescription sent for azithromycin dose pack, to take as directed. Gargle with salt water rinse, may take Tylenol or ibuprofen every 8 hours as needed for pain. Return to clinic if after 6 days no improvement of symptoms Medications: New azithromycin For 250 mg dose pack: take 500 mg today (day 1), then 250 mg for 4 days (days 2-5) PO 6 tabs 0RF Coding Level of Care Code Est Pt Level 4 (75694) Diagnoses Acute sinus infection J01.90
== END 2024-04-02 10:42 | disposition home or self-care (01) ==
PROVIDERS: PCP Internal Medicine; Visit Provider Internal Medicine
DX: J01.90 Acute sinusitis, unspecified (principal)
CPT/HCPCS: 99214

== ENCOUNTER 2024-04-08 21:16 | Emergency (ER) | payer MEDICARE, MEDICAID, SELFPAY ==
--- NOTE | ~2024-04-08 | CT_ITS ---
CT/CT facial bones wo IV con IMPRESSION: Mild to moderate mucosal thickening in the left maxillary sinus with a small fluid level, which could reflect acute sinusitis in the proper clinical setting. EXAMINATION: CT FACIAL BONES WITHOUT CONTRAST CLINICAL INFORMATION: Left facial swelling, rule out sinusitis COMPARISON: None available. TECHNIQUE: Noncontrast multidetector helical imaging was performed through the maxillofacial bones. Coronal and sagittal reformatted images were created. This CT examination was performed using dose optimization techniques as appropriate, variously including the following: *Automated exposure control *Adjustment of mA and/or kV according to patient size (this includes techniques or standardized protocols for targeted exams where dose is matched to indication/reason for exam; i.e. extremities or head) *Use of iterative reconstruction technique DLP: 523 mGy-cm FINDINGS: No acute maxillofacial fractures are seen. There is mild to moderate mucosal thickening in the left maxillary sinus along with a small fluid level. Trace mucosal thickening of the right maxillary sinus. Trace mucosal thickening of the left sphenoid sinus and right ethmoid air cells. Mild opacification of the right frontal sinus. Remaining paranasal sinuses are well-aerated. There is mucosal thickening of the left infundibulum. There is rightward bowing of the nasal septum. The mandibular condyles are well-seated in the condylar fossa. ACDF hardware is present in the cervical spine at C3-C4. 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 The orbits demonstrate a normal appearance bilaterally. The globes are intact, and there are no suspicious findings to suggest retrobulbar hemorrhage. Visualized portions of the brain parenchyma are unremarkable.
[2024-04-08 21:43] VITALS: BP 144/73; PULSE 84; RESP 20; TEMP 36.3; O2SAT 99; BMI 51.6
[2024-04-08 23:00] LABS: IDNOW Serial# 08D9AD1C; Strep A Nucleic Acid Negative (Negative)
[2024-04-08 23:09] LABS: Influenza A PCR NEGATIVE (Negative); Influenza B PCR NEGATIVE (Negative); Resp Syncy Virus RNA Qual PCR NEGATIVE (Negative); SARS COV2 PCR INHOUSE NEGATIVE (Negative)
[2024-04-09 01:17] VITALS: BP 143/90; PULSE 71; RESP 18; TEMP 36.4; O2SAT 98
--- NOTE | 2024-04-09 01:32 | ED_ITS ---
HPI - General Adult General Chief complaint: General Medical Stated complaint: tonsils swollen, lightheadedness, mult compl Time Seen by Provider: 04/09/24 01:31 Source: patient Mode of arrival: ambulatory Limitations: no limitations History of Present Illness ED Provider: Dr. Sonny Howard HPI narrative: 48-year-old female with history of hypertension, obstructive sleep apnea, PTSD, bipolar disorder, IBS, NAFL who presents emergency department for evaluation of left facial swelling, left tongue swelling, jaw pain, left ear pain, nausea, headache x1 month. Patient states she was seen in the urgent care on 03/15/2024 in treated for possible fungal infection of her mouth with no improvement her symptoms. She was seen approximately 2 weeks prior by your PCP in treated with a Z-Tj and salt water gargles with no improvement of her symptoms. Patient states that the left side of her face swollen and she is having pain in this area. She denied fever, chills, rhinorrhea. She states she does have a sore throat pain with swallowing. Related Data Home Medications ?Medication ?Instructions ?Recorded ?Confirmed cholecalciferol (vitamin D3) 50 100 mcg PO DAILY 12/11/20 02/21/23 mcg (2,000 unit) capsule alpha lipoic acid 600 mg capsule 600 mg PO DAILY 11/09/23 simethicone 80 mg chewable tablet 80 mg PO BID-QID PRN 11/09/23 (Gas Relief (simethicone)) multivitamin 1 tab PO DAILY 02/08/24 Previous Rx's ?Medication ?Instructions ?Recorded fluticasone propionate 50 1 spray intranasal DAILY #48 mL 07/09/21 mcg/actuation nasal spray,suspension blood pressure monitor #1 ea 09/20/22 ferrous fumarate 324 mg (106 mg 324 mg PO DAILY #90 tabs 09/02/23 iron) tablet bupropion HCl 150 mg 24 hr tablet, 150 mg PO QAM #30 tabs 12/11/23 extended release loratadine 10 mg tablet 10 mg PO DAILY #90 tabs 12/24/23 metoprolol succinate 50 mg 50 mg PO DAILY #90 tabs 12/28/23 tablet,extended release 24 hr olmesartan 5 mg tablet 5 mg PO DAILY #90 tabs 12/28/23 oxybutynin chloride 15 mg 15 mg PO DAILY #90 tabs 12/28/23 tablet,extended release 24 hr azelastine 137 mcg (0.1 %) nasal 1 spray intranasal BID #90 mL 01/19/24 spray aerosol ropinirole 2 mg tablet 2 mg PO BEDTIME #30 tabs 03/06/24 cyclobenzaprine 10 mg tablet 10 mg PO TID PRN muscle spasm #14 03/08/24 tabs azithromycin 250 mg tablet See Rx Instructions PO .COMPLEX #6 04/02/24 tabs doxycycline hyclate 100 mg tablet 100 mg PO Q12H 10 days #20 tabs 04/09/24 Allergies Allergy/AdvReac Type Severity Reaction Status Date / Time cephalexin Allergy Severe hives Verified 04/08/24 21:46 hydrocodone [From Vicodin] Allergy Severe Hives Verified 04/08/24 21:46 aspirin [From Nixon Aspirin] Allergy Mild Eye Verified 04/08/24 21:46 Swelling Penicillins Allergy Unknown Verified 04/08/24 21:46 meloxicam AdvReac Swelling Verified 04/08/24 21:46 Review of Systems Review of Systems: Yes all other systems are reviewed and are negative [facility] Past Medical History Medical History (Updated 04/09/24 @ 04:32 by Sonny Howard MD) Incisional hernia PTSD (post-traumatic stress disorder) Bipolar disorder Acute medial meniscus tear of right knee Refused influenza vaccine Pain in right foot Uterine fibroid Surgical menopause Vitamin D deficiency Ascending aortic aneurysm Morbid obesity Obstructive sleep apnea on CPAP Urinary, incontinence, stress female Restless leg syndrome Essential hypertension Surgical History Hx of cholecystectomy History of cervical spinal surgery History of section History of partial hysterectomy History of tubal ligation Family History Family History Father Heart disease Substance use disorder Mental health disorder Mother Alive and well Substance use disorder Mental health disorder Sister Mental health disorder Son Mental health disorder Daughter No problems noted. Social History Social History Housing: House Alcohol intake: current Alcohol intake frequency: holidays/special occasions only Alcohol type: wine and hard liquor Patient Tobacco Use Status: Former Tobacco user Smoked in Last 30 Days: No e-Cigarette/Vaping Use: Never Used Use of substances other than those prescribed or required for medical reasons: No Substance Use Type: Marijuana Advance Directives: Yes Advance Directives on File: Yes Advance Directives Date on File: 02/08/24 Patient : No service: No Current occupational status: disabled Cognitive needs: No Hearing needs: No Vision needs: No Physical Exam ED Vital Signs: Vital Signs - 24 hr 04/08/24 21:43 04/09/24 01:17 Temperature 97.4 F 97.6 F Pulse Rate 84 71 Respiratory Rate 20 18 Blood Pressure 144/73 H 143/90 H Pulse Oximetry 99 98 Oxygen Delivery Method Room Air Room Air BMI result Body Mass Index 51.6 Vital signs revealed elevated systolic blood pressure of 144/73 otherwise unremarkable Exam: General: Awake, alert in no distress. Weight 219.7 kg, elevated BMI 51.6 Head: Patient does have facial asymmetry with the left side of her face appearing to be swollen especially over the maxillary aspect of her face compared to the right side. EENT: PERRL, Lids normal, sclera normal, conjunctiva normal, nose normal , ears normal, throat without erythema or exudates. No maxillary sinus tenderness Psych: Pleasant, cooperative Medications Administered Discontinued Medications Generic Name Dose Route Start Last Admin Trade Name Freq PRN Reason Stop Dose Admin Acetaminophen 975 mg 04/09/24 01:47 04/09/24 02:50 Acetaminophen 325 Mg Tablet PO 04/09/24 01:48 975 mg ONCE STA Administration Medical Decision Making Medical Decision Making MDM Narrative: 48-year-old female with history of hypertension, obstructive sleep apnea, PTSD, bipolar disorder, IBS, NAFL who presents emergency department for evaluation of left facial swelling, left tongue swelling, jaw pain, left ear pain, nausea, headache x1 month, no improvement with treatment with antifungal medications and Zithromax Z-Tj. Vital signs revealed an elevated systolic blood pressure otherwise unremarkable. Physical examination did reveal facial asymmetry with the patient's left maxillary area of her face pain more swollen compared to the right but there is not significant tenderness. Differential diagnosis: ?Includes but is not limited to streptococcal pharyngitis, viral pharyngitis, maxillary sinusitis, facial abscess Following evaluation was ordered: CT scan of the facial bones/soft tissue Patient was initially treated with the following: Tylenol 975 mg orally Course: 04:28 My independent interpretation patient's laboratory evaluation is as follows: RSV, influenza and COVID-[address] scan of the patient's face did not reveal any facial abscess but she does have evidence for left maxillary sinusitis which I think is consistent with her presentation and findings. Patient was prescribed doxycycline 100 mg q.12 hours times 10 days and given her 1st dose here in the emergency department. She was given printed and verbal instructions on sinusitis and discharged home Lab Data MDM Lab Attestation statement: I reviewed the patient's lab results. Labs: Lab Results 04/08/24 Range/Units 21:50 Influenza Type A (PCR) NEGATIVE (Negative) Influenza Type B (PCR) NEGATIVE (Negative) RSV RNA Qual (PCR) NEGATIVE (Negative) SARS-CoV-2 RNA (RT-PCR) NEGATIVE (Negative) S. pyogenes GrpA KEDAR Negative (Negative) Radiology Impression Discussion of test interpretation with radiology: I have reviewed the radiologist's reading. Radiologist Impression: CT facial bones wo IV con IMPRESSION: Mild to moderate mucosal thickening in the left maxillary sinus with a small fluid level, which could reflect acute sinusitis in the proper clinical setting. Dictated By: Igor Cortes MD Prescription Management I considered prescription management with: Antibiotic Chronic Conditions Patient?s care impacted by: Hypertension Discharge Plan Discharge Clinical Impression: Facial swelling, Sinusitis, acute Patient Disposition: Home, Self-Care Instructions: Sinusitis (ED) Additional Instructions: Your COVID-19, RSV and influenza tests were negative. Your CT scan was suggestive of left maxillary sinusitis and I think that this may explain the swelling and pain in the left side of your face and ear. Take doxycycline 100 mg, 1 pill every 12 hours for 7 days Take ibuprofen 200 mg pills, 2 pills every 6 hours as needed for pain or fever. Take Tylenol (acetaminophen) 500 mg pills, 2 pills every 6 hours as needed for pain or fever. If you do not get better after taking a 10 day course of doxycycline, your doctor should consider prescribing a 10 day course of Augmentin 875/125 every 12 hours. If you fell [id number] treatments of antibiotics for sinusitis then you will need to see an ears nose and throat doctor for further management. Follow-up with your doctor in 2 days. Please return to the emergency department if your symptoms get worse or if you develop any symptoms that are concerning to you. CT facial bones wo IV con IMPRESSION: Mild to moderate mucosal thickening in the left maxillary sinus with a small fluid level, which could reflect acute sinusitis in the proper clinical setting. Dictated By: Igor Cortes MD Prescriptions: New doxycycline hyclate 100 mg tablet 100 mg PO Q12H 10 Days Qty: 20 0RF No Action fluticasone propionate 50 mcg/actuation spray,suspension 1 spray intranasal DAILY Qty: 48 1RF (DME) blood pressure monitor Kit See Rx Instructions .Route Qty: 1 0RF Rx Instructions: Electronic BP monitor with Extra Large cuff ferrous fumarate 324 mg (106 mg iron) tablet 324 mg PO DAILY Qty: 90 0RF Rx Instructions: Schedule next PCP appt for future refills bupropion HCl 150 mg tablet extended release 24 hr 150 mg PO QAM Qty: 30 2RF loratadine 10 mg tablet 10 mg PO DAILY Qty: 90 1RF metoprolol succinate 50 mg tablet extended release 24 hr 50 mg PO DAILY Qty: 90 1RF olmesartan 5 mg tablet 5 mg PO DAILY Qty: 90 1RF oxybutynin chloride 15 mg tablet extended release 24hr 15 mg PO DAILY Qty: 90 1RF azelastine 137 mcg (0.1 %) aerosol,spray 1 spray intranasal BID Qty: 90 1RF ropinirole 2 mg tablet 2 mg PO BEDTIME Qty: 30 5RF Rx Instructions: administer 1-3 hours before bedtime cyclobenzaprine 10 mg tablet 10 mg PO TID PRN (Reason: muscle spasm) Qty: 14 0RF cholecalciferol (vitamin D3) 50 mcg (2,000 unit) capsule 100 mcg PO DAILY azithromycin 250 mg tablet See Rx Instructions PO .COMPLEX Qty: 6 0RF Rx Instructions: For 250 mg dose pack: take 500 mg today (day 1), then 250 mg for 4 days (days 2-5) PO multivitamin Tablet 1 tab PO DAILY alpha lipoic acid 600 mg capsule 600 mg PO DAILY simethicone [Gas Relief (simethicone)] 80 mg tablet,chewable 80 mg PO BID-QID PRN Print Language: Serbian
[2024-04-09] MEDS: Acetaminophen 325 MG TABLET 975 MG PO (02:50)
[2024-04-09] MEDS: Doxycycline Monohydrate 100 MG CAPSULE PO (04:46)
[2024-04-09 04:52] VITALS: BP 138/79; PULSE 89; RESP 16; TEMP 36.7; O2SAT 98
== END 2024-04-09 04:53 | disposition home or self-care (01) ==
PROVIDERS: Emergency Provider Emergency Medicine Emergency Medical Services; PCP Internal Medicine
DX: J01.00 Acute maxillary sinusitis, unspecified (principal); R22.0 Localized swelling, mass and lump, head; I10 Essential (primary) hypertension; Z03.818 Encounter for observation for suspected exposure to other biological agents ruled out
CPT/HCPCS: 0241U; 70486; 87651; 99284

== ENCOUNTER 2024-04-23 11:46 | Outpatient (AMB) | payer MEDICARE, MEDICAID, SELFPAY ==
--- NOTE | 2024-04-23 11:47 | MHC.PC.OV ---
Vital Signs 04/23/24 11:48 Height 5 ft Weight 275 lb BMI 53.7 BP 126/72 Blood Pressure Location Rt brachial Position Sitting Pulse 64 Pulse Source Pulse Oximeter Pulse Oximetry (%) 96 Oxygen Delivery Method Room Air Intake Visit Reasons: ED [facility] [facility] f/u facial swelling Intake Note: Pt is here today for her [facility] [place] ER f/u facial swelling Allergies cephalexin Allergy (Severe, Verified 04/24/24 23:48) hives hydrocodone [From Vicodin] Allergy (Severe, Verified 04/24/24 23:48) Hives aspirin [From Nixon Aspirin] Allergy (Mild, Verified 04/24/24 23:48) Eye Swelling Penicillins Allergy (Verified 04/24/24 23:48) Unknown meloxicam Adverse Reaction (Verified 04/24/24 23:48) Swelling Medication List - Last Reconciled 04/24/24 by Danya Oneil MD azelastine 1 spray intranasal BID blood pressure monitor Electronic BP monitor with Extra Large cuff bupropion HCl XL 150 mg PO QAM cholecalciferol (vitamin D3) 100 mcg PO DAILY ferrous fumarate 324 mg PO DAILY fluticasone propionate 50 mcg/actuation 1 spray intranasal DAILY loratadine 10 mg PO DAILY metoprolol succinate ER 50 mg PO DAILY multivitamin 1 tab PO DAILY olmesartan 5 mg PO DAILY oxybutynin chloride ER 15 mg PO DAILY ropinirole 2 mg PO BEDTIME simethicone (Gas Relief (simethicone)) 80 mg PO BID-QID PRN Tobacco use date assessed: 04/23/24 Dental Screening Dental Screen Date: 04/23/24 Did you have a dental visit in the last 12 months?: No Was dental information given to patient?: Patient has dentist HPI ED [facility] [place] f/u facial swelling HPI Details 48-year-old lady here today complaining of persistent swelling and discomfort on left side of her tongue and on left side of her face. She has been to the walk-in several times and initially was treated for a sinus infection with Z-Tj and then later on switched to Augmentin which afforded only temporary relief. She has any accompanying fever, but has some nasal congestion and left ear discomfort. CT of the face showed mild to moderate mucosal thickening in the left maxillar sinus along with a small fluid level. Trace mucosal thickening of the right maxillary sinus. Trace mucosal thickening of the left sphenoid sinus and right ethmoid air cells. Mild opacification of the right frontal sinus. Remaining paranasal sinuses are well-aerated. There is mucosal thickening of the left infundibulum. There is rightward bowing of the nasal septum.. [facility] Medical History (Updated 04/23/24 @ 12:20 by Danya Oneil MD) Acute recurrent sinusitis Incisional hernia PTSD (post-traumatic stress disorder) Bipolar disorder Acute medial meniscus tear of right knee Refused influenza vaccine Pain in right foot Uterine fibroid Surgical menopause Vitamin D deficiency Ascending aortic aneurysm Morbid obesity Obstructive sleep apnea on CPAP Urinary, incontinence, stress female Restless leg syndrome Essential hypertension Surgical History Hx of cholecystectomy History of cervical spinal surgery History of section History of partial hysterectomy History of tubal ligation Family History Father Heart disease Substance use disorder Mental health disorder Mother Alive and well Substance use disorder Mental health disorder Sister Mental health disorder Son Mental health disorder Daughter No problems noted. Social History Housing: House Alcohol intake: current Alcohol intake frequency: holidays/special occasions only Alcohol type: wine and hard liquor Patient Tobacco Use Status: Former Tobacco user e-Cigarette/Vaping Use: Never Used Substance Use Type: Marijuana Advance Directives Date on File: 02/08/24 service: No Current occupational status: disabled Cognitive needs: No Hearing needs: No Vision needs: No Questionnaire Thrive Questionnaire Date Thrive assessed: 02/21/23 GRANT-7 AMB Questionnaire GRANT-7 Date GRANT - 7 assessed: 11/09/23 Source: Developed by Drs. Lauro Noriega, Sissy Florian, Sanjeev Vallejo and colleagues, with an educational mindi from [employer]. Review of Systems Const Denies chills, Reports fatigue, Denies fever(s) and Reports headache(s) ENT Reports as per HPI, Reports facial pain, Reports headache(s), Reports nasal congestion, Reports nasal discharge and Denies disequilibrium Card Reports no additional complaints Resp Reports no additional complaints GI Reports no additional complaints Musc Reports no additional complaints Neuro Reports headache(s) and Denies disequilibrium Endo Reports fatigue Physical exam (Primary Care) Vital Signs: Last Vital Signs Pulse 64 04/23/24 11:48 BP 126/72 04/23/24 11:48 Pulse Ox 96 04/23/24 11:48 Oxygen Delivery Method Room Air 04/23/24 11:48 BMI result Body Mass Index 53.7 Tobacco/Smoking Status: Tobacco use Status Tobacco use date assessed 04/23/24 04/23/24 11:50 Patient Tobacco Use Status Former Tobacco user 04/23/24 11:48 e-Cigarette/Vaping Use Never Used 04/23/24 11:48 Thrive Assessment: Date of Thrive Assessment Date Thrive assessed 02/21/23 04/23/24 11:48 Const Other: Alert oriented x3, no acute distress noted ambulatory normal gait, Nutritional Appearance: obese morbidly obese [facility] Head: Yes normocephalic Ears: external ears normal and Abnormal EAC present erythema on the left and EAC tenderness on the left; no foreign body and no otic discharge Face and sinus: Yes sinus tenderness (Left maxillary area) Eyes General: appearance normal, both eyes and all related structures Neck Neck: Yes full ROM, Yes no lymphadenopathy and Yes supple Resp Auscultation: clear to auscultation bilaterally Cardio Other: S1-S2 present regular rate and rhythm Skin General skin exam: no rashes or lesions noted Extrem General: Yes full ROM, Yes no joint enlargement and No amputation noted Assessment and Plan Assessment & Plan (1) Acute recurrent sinusitis: Code(s): J01. - Acute recurrent sinusitis, unspecified Plan: No improvement with Z-Tj and Augmentin, will refer to ear nose and throat specialists for further evaluation management given the results of the CT scan (2) Left facial swelling: Code(s): R22.0 - Localized swelling, mass and lump, head Orders: Referrals Ear/Nose/Throat Referral J01.91 - Acute recurrent sinusitis, unspecified, R22.0 - Localized swelling, mass and lump, head Coding Level of Care Code Est Pt Level 4 (32586) Diagnoses Acute recurrent sinusitis Left facial swelling R22.0
[2024-04-23 11:48] VITALS: BP 126/72; PULSE 64; O2SAT 96; BMI 53.7
== END 2024-04-23 12:56 | disposition home or self-care (01) ==
PROVIDERS: PCP Internal Medicine; Visit Provider Internal Medicine
DX: J01.91 Acute recurrent sinusitis, unspecified (principal); R22.0 Localized swelling, mass and lump, head
CPT/HCPCS: 99214

== ENCOUNTER 2024-06-01 15:09 | Outpatient (REF) | payer MEDICARE, MEDICAID, SELFPAY | END 2024-06-01 15:10 | disposition home or self-care (01) | LOC: HO.HAP 15:09 | PROVIDERS: Visit Provider Internal Medicine | DX: Z46.1 Encounter for fitting and adjustment of hearing aid (principal); H90.42 Sensorineural hearing loss, unilateral, left ear, with unrestricted hearing on the contralateral side | CPT/HCPCS: V5266 ==

== ENCOUNTER 2024-06-01 15:14 | Outpatient (REF) | payer SELFPAY | END 2024-06-01 15:15 | disposition home or self-care (01) | LOC: HO.HAP 15:14 | PROVIDERS: Visit Provider Internal Medicine | DX: Z46.1 Encounter for fitting and adjustment of hearing aid (principal); H90.42 Sensorineural hearing loss, unilateral, left ear, with unrestricted hearing on the contralateral side | CPT/HCPCS: V5267 ==

== ENCOUNTER 2024-08-09 17:11 | Emergency (ER) | payer MEDICARE, MEDICAID, SELFPAY ==
--- NOTE | ~2024-08-09 | XR_ITS ---
EXAMINATION: XR FINGER, LEFT CLINICAL INFORMATION: Thumb pain. COMPARISON: None available. TECHNIQUE: 3 radiographs of the left thumb. FINDINGS: There is no fracture or dislocation. The joint spaces are well-maintained. Regional soft tissue is normal in appearance. No radiopaque foreign object. XR/XR finger LT min 2V IMPRESSION: No fracture or dislocation. Electronically signed by: Jevon Ewing DO 08/09/2024 08:23 PM EDT
[2024-08-09 17:25] VITALS: BP 130/48; PULSE 67; RESP 20; TEMP 36.7; O2SAT 96; BMI 52.7
--- NOTE | 2024-08-09 17:26 | ED_ITS ---
HPI - General Adult General Chief complaint: Extremity Problem Stated complaint: left thumb pain going up the arm/nauseous Time Seen by Provider: 08/09/24 20:01 Source: patient Mode of arrival: ambulatory Limitations: no limitations History of Present Illness ED Provider: leandro ALVARENGA narrative: Patient complaining of left thumb pain after giving deep massage to her partner 1 week ago no other injuries Related Data Home Medications ?Medication ?Instructions ?Recorded ?Confirmed cholecalciferol (vitamin D3) 50 100 mcg PO DAILY 12/11/20 02/21/23 mcg (2,000 unit) capsule simethicone 80 mg chewable tablet 80 mg PO BID-QID PRN 11/09/23 (Gas Relief (simethicone)) multivitamin 1 tab PO DAILY 02/08/24 Previous Rx's ?Medication ?Instructions ?Recorded fluticasone propionate 50 1 spray intranasal DAILY #48 mL 07/09/21 mcg/actuation nasal spray,suspension blood pressure monitor #1 ea 09/20/22 ferrous fumarate 324 mg (106 mg 324 mg PO DAILY #90 tabs 09/02/23 iron) tablet bupropion HCl 150 mg 24 hr tablet, 150 mg PO QAM #30 tabs 12/11/23 extended release loratadine 10 mg tablet 10 mg PO DAILY #90 tabs 12/24/23 metoprolol succinate 50 mg 50 mg PO DAILY #90 tabs 12/28/23 tablet,extended release 24 hr olmesartan 5 mg tablet 5 mg PO DAILY #90 tabs 12/28/23 oxybutynin chloride 15 mg 15 mg PO DAILY #90 tabs 12/28/23 tablet,extended release 24 hr azelastine 137 mcg (0.1 %) nasal 1 spray intranasal BID #90 mL 01/19/24 spray ropinirole 2 mg tablet 2 mg PO BEDTIME #30 tabs 03/06/24 oxycodone 5 mg tablet 5 mg PO Q6H PRN pain #20 tabs 08/09/24 Allergies Allergy/AdvReac Type Severity Reaction Status Date / Time cephalexin Allergy Severe hives Verified 08/09/24 17:28 hydrocodone [From Vicodin] Allergy Severe Hives Verified 08/09/24 17:28 aspirin [From Nixon Aspirin] Allergy Mild Eye Verified 08/09/24 17:28 Swelling Penicillins Allergy Unknown Verified 08/09/24 17:28 meloxicam AdvReac Swelling Verified 08/09/24 17:28 Review of Systems 2 Review of Systems: Yes all other systems are reviewed and are negative [facility] Past Medical History Medical History Acute recurrent sinusitis Incisional hernia PTSD (post-traumatic stress disorder) Bipolar disorder Acute medial meniscus tear of right knee Refused influenza vaccine Pain in right foot Uterine fibroid Surgical menopause Vitamin D deficiency Ascending aortic aneurysm Morbid obesity Obstructive sleep apnea on CPAP Urinary, incontinence, stress female Restless leg syndrome Essential hypertension Surgical History Hx of cholecystectomy History of cervical spinal surgery History of section History of partial hysterectomy History of tubal ligation Family History Family History Father Heart disease Substance use disorder Mental health disorder Mother Alive and well Substance use disorder Mental health disorder Sister Mental health disorder Son Mental health disorder Daughter No problems noted. Social History Social History Housing: House Alcohol intake: current Alcohol intake frequency: holidays/special occasions only Alcohol type: wine and hard liquor Patient Tobacco Use Status: Former Tobacco user e-Cigarette/Vaping Use: Never Used Use of substances other than those prescribed or required for medical reasons: No Substance Use Type: Marijuana Advance Directives: Yes Advance Directives on File: Yes Advance Directives Date on File: 02/08/24 service: No Current occupational status: disabled Cognitive needs: No Hearing needs: No Vision needs: No Physical Exam ED Vital Signs: Vital Signs - 24 hr 08/09/24 17:25 Temperature 98.1 F Pulse Rate 67 Respiratory Rate 20 Blood Pressure 130/48 L Pulse Oximetry 96 Oxygen Delivery Method Room Air BMI result Body Mass Index 52.7 Extrem Hand/finger images: 2 1. Pain in the extensor pollicis longer left thumb no deformity neurovascular intact Course Course Course Narrative: This is a rapid medical exam performed by Ian Egan NP: Additional HPI, ROS, PE not included below will be deferred to primary provider. Patient is a 49-year-old female presenting to the ED with complaint of left thumb pain for the past week after giving a massage. States pain is worsening and radiating up forearm. Plan: xray Medical Decision Making Medical Decision Making MDM Narrative: Patient's right thumb extensor strain thumb spica splint was applied and pain medication was given x-ray negative for fracture Independent Interpretation I performed an independent interpretation of an: Plain X-Ray Radiology Impression Discussion of test interpretation with radiology: I have reviewed the radiologist's reading. Radiologist Impression: No fracture Discharge Plan Discharge Clinical Impression: Left thumb sprain Patient Disposition: Home, Self-Care Instructions: Skier's Thumb (ED) Additional Instructions: You have sprained your left thumb use thumb splint as provided Rest your left thumb Pain medication as prescribed Prescriptions: New oxycodone 5 mg tablet 5 mg PO Q6H PRN (Reason: pain) Qty: 20 0RF Rx Instructions: Partial Fill upon patient request. No Action fluticasone propionate 50 mcg/actuation spray,suspension 1 spray intranasal DAILY Qty: 48 1RF (DME) blood pressure monitor Kit See Rx Instructions .Route Qty: 1 0RF Rx Instructions: Electronic BP monitor with Extra Large cuff ferrous fumarate 324 mg (106 mg iron) tablet 324 mg PO DAILY Qty: 90 0RF Rx Instructions: Schedule next PCP appt for future refills bupropion HCl 150 mg tablet extended release 24 hr 150 mg PO QAM Qty: 30 2RF loratadine 10 mg tablet 10 mg PO DAILY Qty: 90 1RF metoprolol succinate 50 mg tablet extended release 24 hr 50 mg PO DAILY Qty: 90 1RF olmesartan 5 mg tablet 5 mg PO DAILY Qty: 90 1RF oxybutynin chloride 15 mg tablet extended release 24hr 15 mg PO DAILY Qty: 90 1RF azelastine 137 mcg (0.1 %) aerosol,spray 1 spray intranasal BID Qty: 90 1RF ropinirole 2 mg tablet 2 mg PO BEDTIME Qty: 30 5RF Rx Instructions: administer 1-3 hours before bedtime cholecalciferol (vitamin D3) 50 mcg (2,000 unit) capsule 100 mcg PO DAILY multivitamin Tablet 1 tab PO DAILY simethicone [Gas Relief (simethicone)] 80 mg tablet,chewable 80 mg PO BID-QID PRN Print Language: Greenlandic
--- NOTE | 2024-08-09 20:43 | ED.EXTPRO ---
HPI - Extremity Problem General Chief complaint: Extremity Problem Stated complaint: left thumb pain going up the arm/nauseous Time Seen by Provider: 08/09/24 20:01 Source: patient Mode of arrival: ambulatory Limitations: no limitations History of Present Illness ED Provider: leandro ALVARENGA Narrative: Apparently patient was giving deep massage to her partner last week noticed pain in the left thumb in the palmar respiratory increased pain on making fist or movement of the left thumb Related Data Home Medications ?Medication ?Instructions ?Recorded ?Confirmed cholecalciferol (vitamin D3) 50 100 mcg PO DAILY 12/11/20 02/21/23 mcg (2,000 unit) capsule simethicone 80 mg chewable tablet 80 mg PO BID-QID PRN 11/09/23 (Gas Relief (simethicone)) multivitamin 1 tab PO DAILY 02/08/24 Previous Rx's ?Medication ?Instructions ?Recorded fluticasone propionate 50 1 spray intranasal DAILY #48 mL 07/09/21 mcg/actuation nasal spray,suspension blood pressure monitor #1 ea 09/20/22 ferrous fumarate 324 mg (106 mg 324 mg PO DAILY #90 tabs 09/02/23 iron) tablet bupropion HCl 150 mg 24 hr tablet, 150 mg PO QAM #30 tabs 12/11/23 extended release loratadine 10 mg tablet 10 mg PO DAILY #90 tabs 12/24/23 metoprolol succinate 50 mg 50 mg PO DAILY #90 tabs 12/28/23 tablet,extended release 24 hr olmesartan 5 mg tablet 5 mg PO DAILY #90 tabs 12/28/23 oxybutynin chloride 15 mg 15 mg PO DAILY #90 tabs 12/28/23 tablet,extended release 24 hr azelastine 137 mcg (0.1 %) nasal 1 spray intranasal BID #90 mL 01/19/24 spray ropinirole 2 mg tablet 2 mg PO BEDTIME #30 tabs 03/06/24 oxycodone 5 mg tablet 5 mg PO Q6H PRN pain #20 tabs 08/09/24 Allergies Allergy/AdvReac Type Severity Reaction Status Date / Time cephalexin Allergy Severe hives Verified 08/09/24 17:28 hydrocodone [From Vicodin] Allergy Severe Hives Verified 08/09/24 17:28 aspirin [From Nixon Aspirin] Allergy Mild Eye Verified 08/09/24 17:28 Swelling Penicillins Allergy Unknown Verified 08/09/24 17:28 meloxicam AdvReac Swelling Verified 08/09/24 17:28 Review of Systems Review of Systems: Yes all other systems are reviewed and are negative [facility] Past Medical History Medical History Acute recurrent sinusitis Incisional hernia PTSD (post-traumatic stress disorder) Bipolar disorder Acute medial meniscus tear of right knee Refused influenza vaccine Pain in right foot Uterine fibroid Surgical menopause Vitamin D deficiency Ascending aortic aneurysm Morbid obesity Obstructive sleep apnea on CPAP Urinary, incontinence, stress female Restless leg syndrome Essential hypertension Surgical History Hx of cholecystectomy History of cervical spinal surgery History of section History of partial hysterectomy History of tubal ligation Family History Family History Father Heart disease Substance use disorder Mental health disorder Mother Alive and well Substance use disorder Mental health disorder Sister Mental health disorder Son Mental health disorder Daughter No problems noted. Social History Social History Housing: House Alcohol intake: current Alcohol intake frequency: holidays/special occasions only Alcohol type: wine and hard liquor Patient Tobacco Use Status: Former Tobacco user e-Cigarette/Vaping Use: Never Used Use of substances other than those prescribed or required for medical reasons: No Substance Use Type: Marijuana Advance Directives: Yes Advance Directives on File: Yes Advance Directives Date on File: 02/08/24 Patient : No service: No Current occupational status: disabled Cognitive needs: No Hearing needs: No Vision needs: No Physical Exam Vital Signs: Vital Signs: Last Vital Signs Temp 98.1 F 08/09/24 21:17 Pulse 67 08/09/24 21:17 Resp 20 08/09/24 21:17 BP 130/48 L 08/09/24 21:17 Pulse Ox 96 08/09/24 21:17 O2 Del Method Room Air 08/09/24 21:17 BMI result Body Mass Index 52.7 Extrem: Hand/finger images: 1. Tenderness at left thumb external tendon no deformity neurovascular intact Medications Administered Discontinued Medications Generic Name Dose Route Start Last Admin Trade Name Freq PRN Reason Stop Dose Admin Oxycodone HCl 10 mg 08/09/24 20:43 08/09/24 21:15 Oxycodone Hcl Immed Release 5 Mg Tablet PO 08/09/24 20:44 10 mg ONCE ONE Administration Discharge Plan Discharge Clinical Impression: Left thumb sprain Patient Disposition: Home, Self-Care Instructions: Rupa's Thumb (ED) Additional Instructions: You have sprained your left thumb use thumb splint as provided Rest your left thumb Pain medication as prescribed Prescriptions: New oxycodone 5 mg tablet 5 mg PO Q6H PRN (Reason: pain) Qty: 20 0RF Rx Instructions: Partial Fill upon patient request. No Action fluticasone propionate 50 mcg/actuation spray,suspension 1 spray intranasal DAILY Qty: 48 1RF (DME) blood pressure monitor Kit See Rx Instructions .Route Qty: 1 0RF Rx Instructions: Electronic BP monitor with Extra Large cuff ferrous fumarate 324 mg (106 mg iron) tablet 324 mg PO DAILY Qty: 90 0RF Rx Instructions: Schedule next PCP appt for future refills bupropion HCl 150 mg tablet extended release 24 hr 150 mg PO QAM Qty: 30 2RF loratadine 10 mg tablet 10 mg PO DAILY Qty: 90 1RF metoprolol succinate 50 mg tablet extended release 24 hr 50 mg PO DAILY Qty: 90 1RF olmesartan 5 mg tablet 5 mg PO DAILY Qty: 90 1RF oxybutynin chloride 15 mg tablet extended release 24hr 15 mg PO DAILY Qty: 90 1RF azelastine 137 mcg (0.1 %) aerosol,spray 1 spray intranasal BID Qty: 90 1RF ropinirole 2 mg tablet 2 mg PO BEDTIME Qty: 30 5RF Rx Instructions: administer 1-3 hours before bedtime cholecalciferol (vitamin D3) 50 mcg (2,000 unit) capsule 100 mcg PO DAILY multivitamin Tablet 1 tab PO DAILY simethicone [Gas Relief (simethicone)] 80 mg tablet,chewable 80 mg PO BID-QID PRN Interventions: ED Discharge Assessment Last Done: 08/09/24 21:17 Discharge Date/Time: 08/09/24 21:21 Print Language: Upper Sorbian
[2024-08-09] MEDS: oxyCODONE HCl Immed Release 5 MG TABLET 10 MG PO (21:15)
[2024-08-09 21:17] VITALS: BP 130/48; PULSE 67; RESP 20; TEMP 36.7; O2SAT 96
== END 2024-08-09 21:21 | disposition home or self-care (01) ==
PROVIDERS: Emergency Provider Internal Medicine; PCP Internal Medicine
DX: S63.602A Unspecified sprain of left thumb, initial encounter (principal); R11.0 Nausea; M79.645 Pain in left finger(s); X58.XXXA Exposure to other specified factors, initial encounter; Y93.9 Activity, unspecified; Y92.9 Unspecified place or not applicable; Y99.8 Other external cause status; Z79.899 Other long term (current) drug therapy
CPT/HCPCS: 29130; 73140; 99283; 99284

== ENCOUNTER 2024-10-10 10:23 | Outpatient (REF) | payer MEDICARE, MEDICAID, SELFPAY ==
--- NOTE | ~2024-10-10 | FL_ITS ---
EXAMINATION: MODIFIED BARIUM SWALLOW CLINICAL INFORMATION: Dysphagia. COMPARISON: None. TECHNIQUE: Modified barium swallow was performed under lateral fluoroscopy with patient in standing position. Barium mixed with solids and liquids of different consistencies was administered by the speech pathologist. Examination was recorded in the fluoroscopy suite. FINDINGS: ACDF noted at C3-C4, with plate and screw fixation anteriorly, with no gross complication on this limited exam. Trace laryngeal penetration is seen with thin consistency barium. No aspiration was observed. 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 FLUOROSCOPY TIME: 1 minute 23 seconds Number of Spot Images: N/A DOSE AREA PRODUCT: 954 uGy-m2 (microgray-meter squared) FL/FL Modified Barium Swallow IMPRESSION: 1. Trace laryngeal penetration is seen with thin consistency barium. No aspiration was observed. 2. 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 Recommend dedicated barium swallow/esophagram to further evaluate. Refer to the speech therapy report for further clarification This procedure was performed by Heath Starks PA-C, and supervised by Dr. Vaz Electronically signed by: David Vaz MD 10/10/2024 05:41 PM [facility]
--- OUTSIDE RECORDS SUMMARY | 2024-10-11 00:23 | XMS_ITS | Continuity of Care Document ---
Author Organization [place] Address [address] [place] [address]- Care Team Providers Care Setup Technician Name Role Phone Clarice STRONG, Danya Mehta Primary Care Physician Encounter [facility] [place] Date(s): 07/03/24 - 09/20/[address] [address] Attending Physician: Lynne Grissom Admitting Physician: Lynne Grissom Encounter Type: Pre-Outpt Allergies, Adverse Reactions, Alerts Substance Criticality Severity Reaction Reaction Severity Status amoxicillin Active penicillin Active aspirin Active Keflex Active Vicodin Active Medications azelastine 137 mcg/inh (0.1%) nasal spray Nares, Both, 0 Refills, Maintenance, 01/11/20 1:19:00 PM EDT Start Date: 01/11/20 Status: Ordered Repeat number: 1 Colace sodium 100 mg oral capsule 100 mg, 1, capsule, By Mouth, 2 times a day, # 14 capsule, Refills 0, Tot. Refills 0, Maintenance, 12/07/19 8:00:00 AM EST, Print Requisition Start Date: 12/07/19 Stop Date: 12/14/19 Status: Ordered Quantity: 14.0 Unit: capsule Repeat number: 1 Flonase = 50 mcg, Daily, 0 Refills, Maintenance, 05/21/24 3:44:00 PM EDT, Partial fill upon patient request if the prescription is for a schedule II opioid drug. Start Date: 05/21/24 Status: Ordered Repeat number: 1 Iron 100 Plus By Mouth, Daily, 0 Refills, Maintenance, 05/21/24 3:44:00 PM EDT, Partial fill upon patient request if the prescription is for a schedule II opioid drug. Start Date: 05/21/24 Status: Ordered Repeat number: 1 loratadine 10 mg oral tablet 10 mg, 1, tablet, By Mouth, Daily, Refills 0, Maintenance, 02/09/19 2:46:04 PM EDT Start Date: 02/09/19 Status: Ordered Repeat number: 1 Metoprolol Succinate ER 50 mg oral tablet, extended release 1 tablet = 50 mg, By Mouth, Daily, Maintenance, 12/05/19 5:02:00 PM EST, ER Tablet Start Date: 12/05/19 Status: Ordered Repeat number: 1 Multivitamin 0 Refills, Maintenance, 05/21/24 3:44:00 PM EDT, Partial fill upon patient request if the prescription is for a schedule II opioid drug. Start Date: 05/21/24 Status: Ordered Repeat number: 1 olmesartan 5 mg oral tablet 1 tablet = 5 mg, By Mouth, Daily, # 30 tablet, 0 Refills, Maintenance, 11/12/21 8:59:00 AM EST, Tablet, Partial fill upon patient request if the prescription is for a schedule II opioid drug. Start Date: 11/12/21 Status: Ordered Quantity: 30.0 Unit: tablet Repeat number: 1 oxybutynin 10 mg/24 hr oral tablet, extended release 1 tablet = 10 mg, By Mouth, Daily, 0 Refills, Maintenance, 11/22/19 2:55:00 PM EST Start Date: 11/22/19 Status: Ordered Repeat number: 1 rOPINIRole 2 mg oral tablet 1 tablet = 2 mg, By Mouth, Daily, # 90 tablet, 5 Refills, Maintenance, 05/21/24 3:44:00 PM EDT, Tablet, Partial fill upon patient request if the prescription is for a schedule II opioid drug. Start Date: 05/21/24 Status: Ordered Quantity: 90.0 Unit: tablet Repeat number: 1 Problem List Condition Confirmation Course Effective Dates Status Health St atus Informant Severe obesity Confirmed Active Social History Social History Type Response Smoking Status Former smoker, quit more than 30 days ago entered on: 02/09/19 Sex Sex Representation Female (finding) Patient Care team information Care Team Personnel Name: Clarice STRONG , Danya Mehta Position: Reference Physician Member Role: PCP Address: [address] [place], [place] [address] Telecom: Care Team Related Persons Name: LILY DIEZ Name: ANASTASIIA DIAZ Insurance Providers Guarantor name: REMIGIO LA SALLE [employer] [facility] Information #: 2 Payer: [facility] Member Number: [id number] Policy Number: NA Group Number: NA Health Plan Information #: 1 Payer: MEDICARE PART B OUTPT Member Number: [id number] Policy Number: NA Group Number: NA
--- OUTSIDE RECORDS SUMMARY | 2024-10-11 00:23 | XMS_ITS | Continuity of Care Document ---
Author Organization [facility] Address [address] [place] [address]- Care Team Providers Care Auto Repair Technician Name Role Phone Clarice STRONG, Danya Mehta Primary Care Physician Encounter [facility] [place] Date(s): 08/21/24 - 09/20/[address] [address]- Attending Physician: Solo Iyer Admitting Physician: AdmtrSolo Referring Physician: Admtr, Ar8 Encounter Type: Triage Allergies, Adverse Reactions, Alerts Substance Criticality Severity [...] Position: Reference Physician Member Role: PCP Address: [address] [place], [place] [address] Telecom: Care Team Related Persons Name: LILY DIEZ Name: ANASTASIIA DIAZ Insurance Providers Guarantor name: REMIGIO [facility] Information #: 1 Payer: MEDICARE PART B OUTPT Member Number: NA Policy Number: NA Group Number: NA
--- OUTSIDE RECORDS SUMMARY | 2024-10-11 00:23 | XMS_ITS | Continuity of Care Document ---
Author Organization [facility] Address [address] [place] [address]- Care Team Providers Care Rib Puller Name Role Phone Clarice STRONG, Danya Mehta Primary Care Physician Encounter [facility] [place] Date(s): 07/03/24 - 09/20/[address] [address]- Attending Physician: Lynne Grissom Admitting Physician: Lynne Grissom Referring Physician: Lynne Grissom Encounter Type: Pre-Outpt Allergies, [...] Reference Physician Member Role: PCP Address: [address] [place], [place] [address] Telecom: Care Team Related Persons Name: LILY DIEZ Name: ANASTASIIA DIAZ Insurance Providers Guarantor name: REMIGIO [facility] Information #: 1 Payer: MEDICARE PART B OUTPT Member Number: [id number] Policy Number: NA Group Number: NA Health Plan Information #: 2 Payer: [facility] Member Number: [id number] Policy Number: NA Group Number: NA
--- OUTSIDE RECORDS SUMMARY | 2024-10-11 00:23 | XMS_ITS | Patient Health Record ---
Author Organization [facility] Address [address] [address] Care Team Providers Care Pit Worker Power Shovel Name Role Phone Danya Oneil Primary Care Provider Unavailab le ALLERGIES Allergen (clinical drug ingredient) Drug/Non Drug Allergy documented on EMR Reaction Allergy Type Onset Date Status aspirin Aspirin Unknown Drug Allergy Active Keflex Unknown Drug Allergy Active Vicodin Unknown Drug Allergy Active Substance with penicillin structure and antibacterial mechanism of action (substance) Penicillins Unknown Drug Allergy Active REASON FOR REFERRAL No Information MEDICATIONS Medication SIG (Take, Route, Frequency, Duration) Notes Start Date End Date Status Olmesartan Medoxomil 5 MG 1 tablet Orally Once a day Active Diclofenac 4 gr bid Not-Takin g Loratadine 10 MG 1 tablet Orally Once a day Active Metoprolol Succinate ER 50 MG 1 tablet Orally Once a day Active oxyBUTYnin 10 mg daily Active rOPINIRole HCl 1 MG 1 tablet 1 to 3 hour s before bedtime Orally Once a day Active Nasal [place] Active Vitamin D3 50 MCG (1999) 1 tablet Orally Once a day Active PROBLEMS Problem Type ICD Code Onset Dates Problem Status W/U Status Risk SNOMED Code Notes Problem Varicose veins of bilateral lower extremities with pain (I83.813) Active confirmed 16062781 Problem Rheumatoid nodule, right ankle and foot (M06.371) Active confirmed 94622840 Problem Rheumatoid nodule, left ankle and foot (M06.372) Active confirmed 85415741 Problem Rheumatoid arthritis involving multiple sites with positive rheumatoid factor (M05.79) Active confirmed 774967749 PLAN OF TREATMENT Pending Test Test Name Order Date INJ TENDON SHEATH/LIGAMENT/FASCIA 2019 INJ TENDON SHEATH/LIGAMENT/FASCIA 2020 DRAIN/INJECT, SMALL JOINT/BURSA 09/09/20 20 ASPIRATE/INJ GANGLION CYST 09/09/2020 Insurance Providers Payer Name Payer Address Payer Phone Subscriber Number Group Number Insured Name Patient Relationship to Insured Coverage Start Date Coverage End Date [employer] [place] [address] [place]ÑO [id number] Celina Marcelino Self - patient is the insured MEDICATIONS ADMINISTERED Medication Instructions Date of Administration Dosage Notes Dexamethasone 09/09/2020 0.5 mL Dexamethasone 12/01/2020 0.5 mL Kenalog 09/09/2020 0.5 mL Kenalog 12/01/2020 0.5 mL MEDICAL (GENERAL) HISTORY Medical History History ICD Code scoliosis right hip arthritis lumbar radiculopathy rheumatoid arthritis carpal tunnel syndrome ascending aortic aneurysm essential hypertension obstructive sleep apnea on CPAP restless leg syndrome surgical menopause vitamin D deficiency urinary incontinence Surgical History Surgery Date(Month/Year) cervical spine surgery section partial hysterectomy tubal ligation cholecystectomy 2019 Hospitalization History Reason Date(Month/Year) cholecystectomy 2019 hysterectomy 2002 vaginal delivery (girl) 1998 (boy) 1992 cervical spine surgery
--- OUTSIDE RECORDS SUMMARY | 2024-10-11 00:24 | XMS_ITS | Continuity of Care Document ---
Author Organization [place] [facility], [facility] Address [address] [place] [address] Care Team Providers Care Clay Pigeon Loader Name Role Phone SUNITHA WHITE Primary Care Provider Assessment Encounter Date Assessment Date Assessment LastModified by Organization Details LastModified Time 09/13/2024 09/13/2024 Patient with improved swallow symptoms but persistent concerns regarding her tongue. Patient would still like to ensure that her tongue is working properly for swallowing, so we will reorder a modified barium swallow study. She will be called with results. Recommend alternating food and beverage at mealtimes. As the reflux medications have resolved some of her issues, recommend she re-establish with GI at [facility] for evaluation and long-term management. Patient may return to the office as needed. Not available 09/13/2024 13:49:53 Plan of Treatment Reminders Order Date Submit Date Provider Last Modified By Organization Details Last Modified Time Details Appointments None record ed. Lab None record ed. Referral gastro entero logist referr al - Referr lamar for reflux . Thank you. 2023 024 [facility], [address] [place] [address] Dr, 3rd Fl, [place], [id number], 4 10:56:22 speech therap y referr lamar - Charly Modi. Babatunde tracey will need speech therap y. Thank you! 2023 024 MIKAELA Segundo [place], [address], [address], [facility] [place] [address], 4 11:10:57 Procedures None record ed. Surgeries None record ed. Imaging [place], modifi ed barium swallo w study 2023 024 [email or web address] [facility] (Imaging), [address] [place] [address], [address], 4 14:12:04 Medication Orders None record ed. Patient TargetsNo targets recorded. Patient InstructionsNo instructions recorded. Reason for Referral Supervisor Clam Bed Referral for Gastroesophageal reflux disease without esophagitis Referral for reflux. Thank you. Referring Physician: Lynne Rothman Otolaryngology, Encounter Date: 09/13/2024 Good morning Erica. Patrick will need speech therapy. Thank you! Referring Physician: Lynne Rothman Otolaryngology, Encounter Date: 09/13/2024 Problems Name Problem SNOMED Code Status Onset Date Resolution Date Notes Provider Name and Address Organization Details Recorded Time Disorder of smell 873067339 Active 2019 Other disturbanc es of smell and taste; Note: Date Diagnosed: 11/23/2019 11:56 AM (R43.8) Not Available [facility] 4 02:26:51 Disorder of taste 677745402 Active 2019 Other disturbanc es of smell and taste; Note: Date Diagnosed: 11/23/2019 11:56 AM (R43.8) Not Available [facility] 4 02:26:51 Allergic rhinitis 58406515 Active 2019 Allergic rhinitis: Due to other allergen; Note: Date Diagnosed: 12/24/2019 1:44 PM (477.8) Not Available [facility] 4 02:27:00 Obstructi ve sleep apnea syndrome 97750657 Active 2019 Obstructiv e sleep apnea (adult) (pediatric ); Note: Date Diagnosed: 11/23/2019 11:51 AM (G47.33) Not Available [facility] 4 02:27:14 Abnormal auditory perceptio n 48477507 Active 2019 Other abnormal auditory perception s, bilateral; Note: Date Diagnosed: 11/23/2019 11:57 AM (H93.293) Not Available [facility] 4 02:26:57 Asymmetri silvana sensorine ural hearing loss 314125492 Active 2019 Hearing loss: Sensorineu ral hearing loss, asymmetric al; Note: Date Diagnosed: 01/24/2020 2:36 PM (389.16) Not Available [facility] 4 02:27:10 Subjectiv e tinnitus 85771940 Active 2019 Subjective tinnitus; Note: Date Diagnosed: 01/24/2020 2:36 PM (388.31) Not Available [facility] 4 02:27:03 Nasal congestio n 62012297 Active 2019 Nasal congestion ; Note: Date Diagnosed: 11/23/2019 11:51 AM (R09.81) Not Available [facility] 4 02:27:16 Posterior rhinorrhe a 32166069 Active 2019 Postnasal drip; Note: Date Diagnosed: 11/23/2019 11:57 AM (R09.82) Not Available [facility] 4 02:26:49 Deviated nasal septum 133315003 Active 2019 Deviated nasal septum; Note: Date Diagnosed: 11/23/2019 11:57 AM (J34.2) Not Available [facility] 4 02:27:20 Dysphonia 11665174 Active 2019 Hoarseness ; Note: Date Diagnosed: 11/23/2019 11:51 AM (R49.0) Not Available [facility] 4 02:27:15 Sensorine ural hearing loss 79048289 Active 2019 Sensorineu ral hearing loss, unilateral , left ear, with unrestrict ed hearing on the contralate ral side; Note: Date Diagnosed: 12/10/2019 3:57 PM (H90.42) Not Available [facility] 4 02:27:02 Dysphagia 68750420 Active 2023 LYNNE ROTHMAN PA-C [address] [place] [address], [place], [place], [address] , [facility] 4 15:15:08 Perennial allergic rhinitis 305085653 Active 2023 LYNNE ROTHMAN PA-C [address] [place],[address], [place], [place], [address] , [place] [facility] 4 15:18:54 Taste sense altered 939433458 Active 2023 LYNNE ROTHMAN PA-C [address] [place],[address], [place], [place], [address] , [place] [facility] 4 15:25:12 Laryngoph aryngeal reflux 049749628 Active 2023 LYNNE ROTHMAN PA-C [address] [employer] [address] [employer] [place], [place], [place], [address] , [place] [facility] 4 13:15:27 Lingual dysarthri a 784356819 Active 2023 [facility]MAN [facility]C [address] [facility] [place], [place], [place], [address] , [place] [facility] 4 13:22:17 Dysarthri a 7290359 Active 2023 LYNNE ROTHMAN PA-C [address] [facility] [place], [place], [place], [address] , [place] [facility] 4 13:23:12 Enlargeme nt of tongue 57400204 Active 2023 LYNNE ROTHMAN PA-C [address] [facility] [place], [place], [place], [address] , [place] [facility] 4 09:21:26 Congenita l macroglos lori 282828025 Active 2023 Rachell hernandez [place] - [facility] 4 11:50:46 Gastroeso phageal reflux disease without esophagit is 734166454 Active 2023 LYNNE ROTHMAN PA-C [address] [employer] [place], [place], [place], [address] , [place] [facility] 4 13:48:10 Problem Notes None recorded. Procedures Surgical History Date Name Laterality Status Provider Name and Address Organization Details Recorded Time 04/27/20 24 Fiberoptic Laryngoscopy (Comprehensive) completed LYNNE ROTHMAN PA-C [address] [place] [address], [phone], [facility] 04/27/2024 16:36:53 Imaging Results None recorded. Procedure Notes None recorded. Medical Equipment None Reported. Allergies Allergen ID Allergen Name Allergen Category Reaction Reaction Severity Criticality Documentation Date Start Date Code Code System Note Provider Name and Address Organization Details Recorded Time aspirin medicatio n Not available Not available Not available 03/13/2024 1191 RxNorm React ion: other react ion, ringi ng in ears; Not Available [facility] 4 01:00:50 99903 amoxicill in medicatio n other Not available Not available 03/13/2024 723 RxNorm React ion: unkno wn, unspe cifie d;; Not Available [facility] 4 01:00:51 23124 Keflex medicatio n other Not available Not available 03/13/2024 79045 7 RxNorm React ion: unkno wn, unspe cifie d;; Not Available [facility] 4 01:00:56 76556 acetamino phen / hydrocodo ne medicatio n other Not available Not available 03/13/2024 24786 2 RxNorm React ion: unkno wn, unspe cifie d;; Not Available [facility] 4 01:01:00 Medications Name Sig Start Date Stop Date Status Note LastModified by Organization Details LastModified Time losartan 50 mg tablet 05/18 completed Medicati on ID: [id number] D uration Value: 90 Brand Name: losartan Send Method: E-Prescr ibed Sub s Allowed: subs OK Speci al Instruct ion: TAKE 1 TABLET BY MOUTH EVERY DAY Medi cationGe nericNam e: losartan Not Available Not Available Not Available cyclobenz aprine 10 mg tablet TAKE 1 TABLET BY MOUTH 3 TIMES A DAY NEEDED FOR MUSCLE SPASM 04/27 completed Not Available Not Available Not Available nystatin 100,000 unit/mL oral suspensio n SWISH & SPIT 4 ML IN MOUTH 4 TIMES A DAY FOR 7 DAYS 04/27 completed Not Available Not Available Not Available oxybutyni n chloride ER 15 mg tablet,ex tended release 24 hr TAKE 1 TABLET BY MOUTH EVERY DAY active Not Available Not Available No t Available ropinirol e 1 mg tablet 2 MG (2 X 1 MG) ORALLY BEDTIME ADMINIST ER 1-3 HOURS BEFORE BEDTIME active Not Available Not Available No t Available oxybutyni n chloride ER 10 mg tablet,ex tended release 24 hr 05/18 completed Medicati on ID: [id number] D uration Value: 30 Brand Name: oxybutyn in chloride Send Method: E-Prescr ibed Sub s Allowed: subs ATNONIO newton Instruct ion: TAKE 1 TABLET BY MOUTH EVERY DAY Medi cationGe nericNam e: oxybutyn in chloride Not Available Not Available Not Available azithromy andre 250 mg tablet TAKE 2 TABLETS BY MOUTH TODAY, THEN TAKE 1 TABLET DAILY FOR 4 DAYS DIRECTED 04/27 completed Not Available Not Available Not Available metoprolo l succinate ER 50 mg tablet,ex tended release 24 hr TAKE 1 TABLET BY MOUTH DAILY active Not Available Not Available No t Available ropinirol e 2 mg tablet active Not Available Not Available Not Available ropinirol e 0.5 mg tablet 05/18 completed Medicati on ID: [id number] D uration Value: 90 Brand Name: ropiniro le Send Method: E-Prescr ibed Sub s Allowed: subs ANTONIO Johnson al Instruct ion: TAKE 1 TAB BY MOUTH 1-3 HRS BEFORE BED Medi cationGe nericNam e: ropiniro le Not Available Not Available Not Available prednison e 50 mg tablet TAKE 1 TABLET BY MOUTH EVERY DAY 04/27 completed Not Available Not Available Not Available bupropion HCl 75 mg tablet TAKE 1 TABLET BY MOUTH EVERY DAY IN THE MORNING 04/27 completed Not Available Not Available Not Available omeprazol e 20 mg capsule,d elayed release TAKE 1 CAPSULE BY MOUTH EVERY DAY IN THE MORNING FOR REFLUX active Not Available Not Available No t Available azelastin e 137 mcg (0.1 %) nasal spray Inhale 2 spray into both nostrils twice a day as directed active Not Available Not Available No t Available fluticaso ne propionat e 50 mcg/actua tion nasal spray,nhan pension 2020 active Medicati on ID: [id number] B rand Name: fluticas one propiona te Send Method: E-Prescr ibed Sub s Allowed: subs OK Medic ationGen ericName : fluticas one propiona te Not Available Not Available Not Available doxycycli ne hyclate 100 mg tablet TAKE 1 TABLET BY MOUTH EVERY 12 HOURS FOR 10 DAYS. 04/27 completed Not Available Not Available Not Available loratadin e 10 mg tablet TAKE 1 TABLET BY MOUTH EVERY DAY active Not Available Not Available No t Available oxycodone 5 mg tablet TAKE 1 TABLET BY MOUTH EVERY 6 HOURS NEEDED FOR PAIN. active Not Available Not Available No t Available olmesarta n 5 mg tablet TAKE 1 TABLET BY MOUTH EVERY DAY active Not Available Not Available No t Available bupropion HCl XL 150 mg 24 hr tablet, extended release TAKE 1 TABLET BY MOUTH EVERY MORNING active Not Available Not Available No t Available Ferrocite 324 mg (106 mg iron) tablet TAKE 1 TABLET BY MOUTH DAILY active Not Available Not Available No t Available duloxetin e 20 mg capsule,d elayed release TAKE 1 CAPSULE BY MOUTH EVERY DAY 04/27 completed Not Available Not Available Not Available chlorhexi dine gluconate 0.12 % mouthwash active Not Available Not Available No t Available Vitals Date Recorded Body height Body mass index (BMI) Body weight Provider Name and Address Organization Details Last Updated DateTime 09/13/2024 152.4 cm 51.6 kg/m2 915092.39 g Kassandra Lagos [place] [facility] 09/13/2024 13:18:31 Social History None recorded. Functional Status None recorded. Mental Status None recorded. Family History Nothing Reported. Medical History No medical history recorded. Gynecological HistoryNo gynecological history recorded. Obstetrics History GPAL:G 0 P 0 0 0 0 Past Encounters Encounter ID Performer Location Encounter Start Date Encounter Closed Date Diagnosis/Indication Diagnosis SNOMED-CT Code Diagnosis ICD10 Code [id number] HAYLEY BAEZA MD [facility] [address] [address] 09/13/2024 13:16:03 09/13/2024 14:08:39 Lingual dysarthria 778114765 R47.1 Dysphagia 46665607 R13.1 2 Gastroesop hageal reflux disease without esophagitis 425280283 K21.9 Health Concerns Section Related Observation LastModified by Organization Detai ls LastModified Time None Recorded Concern Status LastModified by Organization Details LastModified Time None Recorded Payers Encounter Date Sequence Insurance Name Policy Number Policy Scott Covered Member ID Scott Member ID Guarantor Name 09/13/2024 1 [place] [employer] Celina Melvin Marcelino [id number] Celina M Chari 09/13/2024 2 [place] [facility] Celina M Chari [id number] Celina Marcelino Notes Date Note Type Note Provider Name and Address Organization Details Recorded Time 09/13/2024 text/html 49 year old ross ness presents for re-evaluation of her throat. Missed her swallow study due to mental health concerns. Swallow is better. Sometimes the top of a sandwich gets stuck to the roof of the mouth. No pharyngeal symptoms when swallowing. States the tongue still feels thick. The voice is not hoarse but she feels she has some dysarthria due to the thickness of the tongue. No hemoptysis nor sore throat. Had a sinus infection recently but that has cleared up. Aside from that, no fevers, night sweats, nor unintentional weight loss. Still compliant with her CPAP, and uses distilled water in the humidification chamber. Acknowledges she does drink enough fluids. Does not drink at meal times. Only takes her reflux medications when necessary or if anticipating dietary indiscretion. Root canal ended up being unnecessary. Back to smoking marijuana. HAYLEY BAEZA MD [address] [place] [address], [place], [address], [place] [facility] 09/13/2024 20:59:42 OBGyn Episode No OBEpisode recorded.
--- OUTSIDE RECORDS SUMMARY | 2024-10-11 00:24 | XMS_ITS | Data Portability ---
Author Organization [place] - [facility], Allergy Address [address] [address] Care Team Providers Care Commercial Insulator Name Role Phone SUNITHA WHITE Primary Care Provider Assessment Encounter Date Assessment Date Assessment LastModified by Organization Details LastModified Time 05/25/2024 05/25/2024 Exam is no longer demonstrating asymmetry nor tenderness. Improved on omeprazole, will refer to GI. Will order swallow study and call with results. Not available 05/25/2024 13:19:44 09/13/2024 09/13/2024 Patient with improved swallow symptoms [...] issues, recommend she re-establish with GI at [place] for evaluation and long-term management. Patient may return to the office as needed. Not available 09/13/2024 13:49:53 Plan of Treatment Reminders Order Date Submit Date Provider Last Modified By Organization Details Last Modified Time Details Appointments None record ed. Lab unlist ed lab - fungal surfac e swab (mansoor) 2023 024 ROHINI [facility], [address] [facility] [address], [place], [address], 10:13:35 microo rganis m identi ficati on, unspec ified specim en 2023 024 ROHINI [facility], [address], [place], [address], 4 10:13:36 Referral gastro entero logist referr al - Referr al for dyspha rob and LPR. [facility] Office prefer red. Thank you. 2023 024 [email or web address] [facility] Gastroenterology Scheduling Department, [address], [address], [place], [address], 12:25:38 speech therap y referr al - Referr al for speech therap y. Thanks ! 2023 024 [email or web address] Ly Segundo Ma, [address], [place], [address], 12:25:59 gastro entero logist referr al - Referr al for reflux . Thank you. 2023 024 [facility], [address] [place] [address] Dr, [address], [place], [address], 4 10:56:22 speech therap y referr al - Good dmitri Modi. Babatunde tracey will need speech therap y. Thank you! 2023 024 [facility], [address] [facility], [address], [place], [address], 4 11:10:57 Procedures None record ed. Surgeries None record ed. Imaging [place], modifi ed barium swallo w study 2023 024 [email or web address] [facility], [address], [place], [address], 4 10:20:10 [place], modifi ed barium swallo w study 2023 024 [email or web address] [facility], [address], [place], [address], 4 10:20:53 [place], modifi ed barium swallo w study 2023 024 [facility] [address] [place] [address], [address], 14:12:04 Medication Orders omepra zole 20 mg capsul eamanda yed releas e 2023 024 [facility], [address] [place], [address], 10:57:42 lorata dine 10 mg tablet 2023 024 ROHINI [facility], [address] [place], [address], 15:19:45 Patient TargetsNo targets recorded. Patient Instructions Encounter Date Encounter Id Patient Instructions Last Modified By Organization Details Last Modified Time 04/27/2024 [id number] Reviewed with patient possibly multiple issues going on. As she has not seen a dentist in some time, will swab for fungal and also bacterial infection. Reviewed there are some findings on scope that indicate there may be acid reflux in play; recommend trial of omeprazole. Recommend discontinuing marijuana intake particularly given the erythema in the nasopharynx. Recommend oropharyngeal swallow study. Recommend antihistamine. Should this not improve the sensation of excess mucus, would consider 3-view sinus series on return, particularly if the mild puffiness of the cheek on the left does not improve. Not available 04/27/2024 16:41:09 Reason for Referral Cotton Broker Referral for Dysphagia Referral for dysphagia and LPR. [place] Office preferred. Thank you. Referring Physician: Bri Rothman, Otolaryngology, Encounter Date: 05/25/2024 Referral for speech therapy. Thanks! Referring Physician: Bri Rothman, Otolaryngology, Encounter Date: 05/25/2024 Cotton Broker Referral for Gastroesophageal reflux disease without esophagitis Referral for reflux. Thank you. Referring Physician: Bri Rothman, Otolaryngology, Encounter Date: 09/13/2024 Good morning Erica. Patrick will need speech therapy. Thank you! Referring Physician: Bri Rothman, Otolaryngology, Encounter Date: 09/13/2024 Results Created Date Observation Date Name Description Value Unit Range Abnormal Flag Note LastModifiedBy Organization Detail LastModifiedTime 04/27/20 24 05/08/2024 FUNGA L SURFA CE SWAB (MANSOOR ) media COMMEN T Testi ng not perfo rmed due to the age of this speci men. Not Available [facility] ([facility]) [address] [place], [address], 05/08/2024 10:13:35 04/27/20 24 05/08/2024 FUNGA L SURFA CE SWAB (MANSOOR ) sample description MED SURG RN Not Available [facility]) [address] [place], [address], 05/08/2024 10:13:35 04/27/20 24 05/08/2024 FUNGA L SURFA CE SWAB (MANSOOR ) total fungal count MED SURG RN Not Available [facility] ([facility]) [address] [place], [address], 05/08/2024 10:13:35 04/27/20 24 05/08/2024 FUNGA L SURFA CE SWAB (MANSOOR ) comment MED SURG RN Not Available [facility] ([facility]) [address] [place], [address], 05/08/2024 10:13:35 04/27/20 24 05/08/2024 FUNGA L SURFA CE SWAB (MANSOOR ) interpretati on MED SURG RN Not Available [facility] ([facility]) [address] [place], [address], 05/08/2024 10:13:35 04/27/20 24 04/30/2024 AEROB IC BACTE RIAL CULTU RE aerobic bacterial culture Final report Not Available [facility] ([facility]) [address] [facility], [place], [address], 05/08/2024 10:13:36 04/27/20 24 04/30/2024 AEROB IC BACTE RIAL CULTU RE result 1 Mixed skin jeannine Not Available [facility] ([facility]) [address] [facility], [place], [address], 05/08/2024 10:13:36 04/27/20 24 05/08/[address] PROBL EM request problem COMMEN T Testi ng not perfo rmed due to the age of this speci men. TEST: [id number] 0 Funga l Surfa ce Swab (MANSOOR ) Not Available [facility] ([facility]) [address] [facility], [place], [address], 05/08/2024 10:13:37 06/19/20 24 12/10/2019 imagi ng/di agnos tic resul t No observ ation record ed. [email or web address] Not Available 12:30:57 06/19/20 24 12/10/2019 imagi ng/di agnos tic resul t No observ ation record ed. [email or web address] Not Available 12:31:00 06/19/20 24 12/13/2019 imagi ng/di agnos tic resul t No observ ation record ed. [email or web address] Not Available 12:31:02 06/19/20 24 01/22/2020 imagi ng/di agnos tic resul t No observ ation record ed. [email or web address] Not Available 12:31:27 06/19/20 24 05/18/2021 imagi ng/di agnos tic resul t No observ ation record ed. [email or web address] Not Available 12:31:32 06/19/20 24 05/19/2022 imagi ng/di agnos tic resul t No observ ation record ed. [email or web address] Not Available 12:31:34 06/19/20 24 12/10/2019 audio gram No observ ation record ed. [email or web address] Not Available 12:31:49 06/19/20 24 05/18/2021 audio gram No observ ation record ed. [email or web address] Not Available 12:32:09 06/19/20 24 05/19/2022 audio gram No observ ation record ed. [email or web address] Not Available 12:32:11 07/17/20 24 07/17/2024 chest xr [facility] Diagno stic Imagin g Depart [address] [address] ____ Sanchez t: COL FRANKIE ORTEGA D.O.B. /Age/S ex: 1974 - 48 - F Unit#: [id number] Locati on/Sta tus: LEON T/PRE CLI Accoun t#: [id number] Mnmarjan ic[facility] Orderi ng Physic lorne: MAYITO VELASQUEZ PA-C ___ CR Barium Swallo w W Video - - 0804 Report Status :Love smith EXAMIN ATION: Modifi ed barium swallo w. INDICA TION: Dyspha rob. TECHNI QUE: Modifi ed barium swallo w was perfor med on the latera l fluoro scopy- guided sanchez valdes in presen ce of speech therap ist. FINDIN GS: Follow ing oral admini strati on high knee, nectar , thin barium , puddin g, barium tablet with cracke rs with puddin g as solid food there is normal propag ation of bolus from oral cavity throug h the pharyn x into the upper esopha bronwyn withou t any laryng eal aspira tion. There is a trace laryng eal penetr ation seen. There is premat ure spilla ge seen almost all liquid s and solids . There is trace retent ion of thick barium and solid food in the vallec ulae with alteri ng fractu res which clears with subseq uent swallo wing. On admini strati on barium tablet s there was no obstru ction. Patien t has a known C3-C4 verteb ral fusion with ventra l plate and screws . IMPRES BHAVYA: Premat ure spilla ge with trace laryng eal penetr ation with thin barium . Premat ure spilla ge was seen with nectar , thin barium , puddin g and cracke r with puddin g. Minima l retent ion in the vallec ulae with cracke rs which clears with subseq uent swallo wing with water. Correl ate with speech therap y report . Fluoro scopy time: 31 second s. Dose area produc t: 2.863 cm Gycm2. Images : 78 Dictat ing Physic lorne: Olegario GAMBOA Electr onical ly Signed by: Olegario GAMBOA Dic Date/T martínez: 1109 Sign date/T martínez: 1115 [facility] (Central Scheduling Radiology) [address] [place] [address], [address], 07/19/2024 16:45:30 Result Notes None recorded. Problems Name Problem SNOMED Code Status Onset Date Resolution Date Notes Provider Name and Address Organization Details Recorded Time Disorder of smell 195915642 Active 2019 Other disturbanc es of smell and taste; Note: Date Diagnosed: 11/23/2019 11:56 AM (R43.8) Not Available [facility] 4 02:26:51 Disorder of taste 907457683 Active 2019 Other disturbanc es of smell and taste; Note: Date Diagnosed: 11/23/2019 11:56 AM (R43.8) Not Available [facility] 4 02:26:51 Allergic rhinitis 32391611 Active 2019 Allergic rhinitis: Due to other allergen; Note: Date Diagnosed: 12/24/2019 1:44 PM (477.8) Not Available [facility] 4 02:27:00 Obstructi ve sleep apnea syndrome 02561802 Active 2019 Obstructiv e sleep apnea (adult) (pediatric ); Note: Date Diagnosed: 11/23/2019 11:51 AM (G47.33) Not Available [facility] 4 02:27:14 Abnormal auditory perceptio n 73156867 Active 2019 Other abnormal auditory perception s, bilateral; Note: Date Diagnosed: 11/23/2019 11:57 AM (H93.293) Not Available [facility] 4 02:26:57 Asymmetri silvana sensorine ural hearing loss 224835217 Active 2019 Hearing loss: Sensorineu ral hearing loss, asymmetric al; Note: Date Diagnosed: 01/24/2020 2:36 PM (389.16) Not Available [facility] 4 02:27:10 Subjectiv e tinnitus 45504308 Active 2019 Subjective tinnitus; Note: Date Diagnosed: 01/24/2020 2:36 PM (388.31) Not Available [facility] 4 02:27:03 Nasal congestio n 70560385 Active 2019 Nasal congestion ; Note: Date Diagnosed: 11/23/2019 11:51 AM (R09.81) Not Available [facility] 4 02:27:16 Posterior rhinorrhe a 85936233 Active 2019 Postnasal drip; Note: Date Diagnosed: 11/23/2019 11:57 AM (R09.82) Not Available [facility] 4 02:26:49 Deviated nasal septum 354692721 Active 2019 Deviated nasal septum; Note: Date Diagnosed: 11/23/2019 11:57 AM (J34.2) Not Available [facility] 4 02:27:20 Dysphonia 72671782 Active 2019 Hoarseness ; Note: Date Diagnosed: 11/23/2019 11:51 AM (R49.0) Not Available [facility] 4 02:27:15 Sensorine ural hearing loss 67533180 Active 2019 Sensorineu ral hearing loss, unilateral , left ear, with unrestrict ed hearing on the contralate ral side; Note: Date Diagnosed: 12/10/2019 3:57 PM (H90.42) Not Available [facility] 4 02:27:02 Dysphagia 24759287 Active 2023 BRI ROTHMAN PA-C [address], [place], [address] , [facility] - [facility] 4 15:15:08 Perennial allergic rhinitis 830327254 Active 2023 BRI ROTHMAN PA-C [address] [facility], [place], [address] , [place] - [facility] 4 15:18:54 Taste sense altered 109728379 Active 2023 BRI ROTHMAN PA-C [address], [place], [address] , [place] - [facility] 4 15:25:12 Laryngoph aryngeal reflux 514458451 Active 2023 BRI ROTHMAN PA-C [address], [address] , [place] - [facility] 4 13:15:27 Lingual dysarthri a 327913479 Active 2023 BRI ROTHMAN PA-C [address], [address] , [place] - [facility] 4 13:22:17 Dysarthri a 3612830 Active 2023 BRI ROTHMAN PA-C [address], [address] , [place] - [facility] 4 13:23:12 Enlargeme nt of tongue 54142299 Active 2023 BRI ROTHMAN PA-C [address], [place], [address] , [place] - [facility] 4 09:21:26 Congenita l macroglos lori 904158930 Active 2023 Rachell hernandez, [place] - [facility] 4 11:50:46 Gastroeso phageal reflux disease without esophagit is 567645860 Active 2023 RBI ROTHMAN PA-C [address], [place], [address] , [facility] - [facility] 4 13:48:10 Problem Notes None recorded. Procedures Surgical History Date Name Laterality Status Provider Name and Address Organization Details Recorded Time 04/27/20 24 Fiberoptic Laryngoscopy (Comprehensive) completed BRI ROTHMAN PA-C [address], [place], [address], [place] - [facility] 04/27/2024 16:36:53 Imaging Results Imaging Date Name Status LastModified by Organiz ation Details LastModified Time 12/10/2019 imaging/diagno stic result completed Information not available 06/19/2024 12:30:57 12/10/2019 imaging/diagno stic result completed Information not available 06/19/2024 12:31:00 12/13/2019 imaging/diagno stic result completed Information not available 06/19/2024 12:31:02 01/22/2020 imaging/diagno stic result completed Information not available 06/19/2024 12:31:27 05/18/2021 imaging/diagno stic result completed Information not available 06/19/2024 12:31:32 05/19/2022 imaging/diagno stic result completed Information not available 06/19/2024 12:31:34 12/10/2019 audiogram completed Information not available 06/19/2024 12:31:49 05/18/2021 audiogram completed Information not available 06/19/2024 12:32:09 05/19/2022 audiogram completed Information not available 06/19/2024 12:32:11 07/17/2024 chestxr completed [facility] ([facility]) [address] [place], [address], 07/19/2024 16:45:30 Procedure Notes None recorded. Medical Equipment None Reported. Allergies Allergen ID Allergen Name Allergen Category Reaction Reaction Severity Criticality Documentation Date Start Date Code Code System Note Provider Name and Address Organization Details Recorded Time 38534 aspirin medicatio n Not available Not available Not available 03/13/2024 1191 RxNorm React ion: other react ion, ringi ng in ears; Not Available [facility] 4 01:00:50 92382 amoxicill in medicatio n other Not available Not available 03/13/2024 723 RxNorm React ion: unkno wn, unspe cifie d;; Not Available [facility] 4 01:00:51 36771 Keflex medicatio n other Not available Not available 03/13/2024 55776 7 RxNorm React ion: unkno wn, unspe cifie d;; Not Available [facility] 4 01:00:56 73837 acetamino phen / hydrocodo ne medicatio n other Not available Not available 03/13/2024 41276 2 RxNorm React ion: unkno wn, unspe cifie d;; Not Available [facility] 4 01:01:00 Medications Name Sig Start Date Stop Date Status Note LastModified by Organization Details LastModified Time losartan 50 mg tablet 05/18 completed Medicati on ID: [id number] D uration Value: 90 Brand Name: losartan [...] 24 hr 05/18 completed Medicati on ID: [id number] D uration Value: 30 Brand Name: oxybutyn [...] mg tablet 05/18 completed Medicati on ID: 168706 D uration Value: 90 Brand Name: ropiniro le Send Method: E-Prescr ibed Sub s Allowed: subs OK Speci al Instruct ion: TAKE 1 TAB BY [...] propionat e 50 mcg/actua tion nasal spray,nhan pradhan 2020 active Medicati on ID: [id number] B rand Name: fluticas one propiona te [...] and Address Organization Details Last Updated DateTime 05/25/2024 152.4 cm 51.6 kg/m2 898976.39 g Melissa Bal [place] - [facility] 05/25/2024 13:02:29 Date Recorded Body height Body mass index (BMI) Body weight Provider Name and Address Organization Details Last Updated DateTime 09/13/2024 152.4 cm 51.6 kg/m2 630814.39 g Kassandra Lagos [place] - [facility] 09/13/2024 13:18:31 Social History None recorded. Functional Status None recorded. Mental Status None recorded. Family History Nothing Reported. Medical History No medical history recorded. Gynecological HistoryNo gynecological history recorded. Obstetrics History GPAL:G 0 P 0 0 0 0 Past Encounters Encounter ID Performer Location Encounter Start Date Encounter Closed Date Diagnosis/Indication Diagnosis SNOMED-CT Code Diagnosis ICD10 Code [id number] BRI ROTHMAN PA-C [facility] [address] [address] 04/27/2024 14:05:05 04/27/2024 15:23:02 Dysphagia 23932284 R13.10 Perennial allergic rhinitis 795683416 J30.89 Taste sense altered 2718 49137 R43.2 [id number] JOHNNY FAIR MD [facility] [address] [address] 05/25/2024 12:36:18 05/25/2024 13:24:46 Laryngopharyngeal reflux 401868734 K21.9 Dysphagia 47745645 R13.1 2 Dysarthria 9000962 R47.1 [id number] HAYLEY BAEZA MD [facility] [address] [address] 09/13/2024 13:16:03 09/13/2024 14:08:39 Lingual dysarthria 172548194 R47.1 Dysphagia 56215020 R13.1 2 Gastroesop hageal reflux disease without esophagitis 601736082 K21.9 Health Concerns Section Related Observation LastModified by Organization Detai ls LastModified Time None Recorded Concern Status LastModified by Organization Details LastModified Time None Recorded Advance Directives Directive None Recorded Payers Encounter Date Sequence Insurance Name Policy Number Policy Scott Covered Member ID Scott Member ID Guarantor Name 04/27/2024 1 [place] [employer] Celina Marcelino [id number] Celina Marcelino 04/27/2024 2 [place] [facility] Celina Marcelino [id number] Celina Marcelino 05/25/2024 1 [place] [employer] Celina Marcelino [id number] Celina Marcelino 05/25/2024 2 [place] [facility] Celina Marcelino [id number] Celina Marcelino 09/13/2024 1 [place] [employer] Celina Marcelino [id number] Celina Marcelino 09/13/2024 2 [place] [facility] Celina Marcelino [id number] Celina Marcelino Notes Date Note Type Note Provider Name and Address Organization Details Recorded Time 04/27/2024 text/html 48 year old ross ness presents after 2 year hiatus from the practice for evaluation of throat. She reports in early February she awoke with a swollen tongue. Tried some home remedies including elderberry tea and cough medication. After a week without improvement, sought care at urgent care and was given nystatin. No improvement, saw PCP, no improvement, given Z-stas. Nasal passages were swollen per PCP. Still no improvement. Started with headaches. Talking began to hurt the throat. Went to ED and prescribed 10 day course of doxycycline due to acute left maxillary sinusitis found on CT. Had a stinging feeling on the tongue a couple of weeks ago. Food gets stuck on the roof of the mouth. Has to cut meats very small and chew very thoroughly. She is having trouble swallowing fluids, feels like she is going to choke and regurgitate, though she has only regurgitated twice in these 2 months. Now drinking about 2 cups of fluid per day, tea or water, down from 8 glasses per day. Trying to swallow pills is difficult because it gets stuck on the tongue. No pharyngeal dysphagia, and no globus sensation in the throat. Throat is sore on left side, worsened by talking and eating, with swelling of the left cheek and submandibular region. The left side of the jaw feels swollen and the left ear is achy. Reports saliva builds up into a paste on the left side of the tongue. States sugary foods, daily, and oils increase mucus production. She reports some voice changes. Denies hoarseness but I sound like a deaf person. Sounds like I have cotton in my mouth or got a tongue piercing and the swelling never went down. Coughing up some mucus in the mornings, white, thick, and sticky. No hemoptysis, fevers, new night sweats, unintentional weight loss. No use of tobacco. Drinks alcohol 2-3 days per week, 2-3 nip bottles per episode. She smokes marijuana almost daily, low intake. In recent months she has lost significant weight, intentionally. Uses CPAP at night, drooling with use, cleans and changes the hose frequently. Long history of allergic rhinitis and recently [facility] the [facility]. BRI ROTHMAN PA-C [address] [facility],[place] [address], [place], [address], [place] - [facility] 04/27/2024 16:41:39 05/25/2024 text/html 48 year female presents for re-evaluation of throat. Omeprazole has helped. Only a few episodes of reflux since last evaluated. Still feels the tongue is thick on the left side. Has not heard about swallow study. Still reporting occasional issues with larger pills. She has been chewing her food more thoroughly. Bacterial and fungal swabs here were normal. She went to the dentist. May need a root canal. Sleep apnea, wears CPAP, uses the humidification chamber with distilled water. There is no sore throat, hoarseness, hemoptysis, fevers. JOHNNY CRISOSTOMO MD [address] [facility],[address], [address], [facility] - [facility] 05/25/2024 16:19:01 09/13/2024 text/html 49 year old ross ness [...] Back to smoking marijuana. HAYLEY BAEZA MD [address] [facility] [address], [place], [address], [facility] - [facility] 09/13/2024 20:59:42 OBGyn Episode No OBEpisode recorded.
--- NOTE | 2024-10-15 15:54 | MHC.SL.IMP ---
Date of Plan of Treatment: 10/10/24 Onset of Symptoms/Illness: 03/14/24 Date Treatment Started: 10/10/24 Admitting Diagnosis: Dysphagia, oropharyngeal (R13.12) Primary Speech & Language Diagnosis: R13.12 Oropharyngeal Phase Dysphagia Secondary Speech & Language Diagnosis: Reason for Today's Visit: 40937 Modified Barium Swallow Study Pre-evaluation Dietary Consistencies: Regular Pre-evaluation Liquid Consistency: Thin Pre-evaluation Medication Administration: Whole with Liquid Medical History: Comments: Acute recurrent sinusitis Incisional hernia PTSD (post-traumatic stress disorder) Bipolar disorder Acute medial meniscus tear of right knee Refused influenza vaccine Pain in right foot Uterine fibroid Surgical menopause Vitamin D deficiency Ascending aortic aneurysm Morbid obesity Obstructive sleep apnea on CPAP Urinary, incontinence, stress female Restless leg syndrome Essential hypertension Oral Motor Exam Facial Symmetry: Symmetrical Facial Movement: Oral-Facial Facial Miscellaneous Observations: Mouth Occlusion: Normal Oral-Facial Teeth Characteristics: Intact/Normal Oral-Facial Teeth Miscellaneous Observation: Oral-Facial Lip Pucker Description: Normal Oral-Facial Smile (Lips) Description: Normal Oral-Facial Puff Cheeks Description: Normal Oral-Facial Lip Miscellaneous Comment: Tongue Size: Tongue Frenum Length: Tongue Excursion Description: Deviates to Left Tongue Range of Movement Description: Reduced Tongue Speed of Movement Description: Reduced Tongue Strength of Movement (against opposing pressure): Reduced Tongue Movement Characteristics: Normal/Absent Tongue Movement Miscellaneous Observation: Oral motor exam showed deviation of the tongue at rest and on protrusion. Oral Expression Ability: WFL Is patient able to manage secretions?: Yes Is patient able to produce volitional cough?: Yes Food and Liquid Trials: Oral Impairment: Lip Closure: Did not test Oral Impairment: Tongue Control During Bolus Hold: 0=Cohesive bolus between tongue to palatal seal Oral Impairment: Bolus Preparation/Mastication: 2=Disorganized chewing/mashing with solid pieces of bolus Oral Impairment: Bolus Transport/Lingual Motion: 1= Delayed initiation of tongue motion Oral Impairment: Oral Residue: 2=Residue collection on oral structures Oral Impairment:Initiation of Pharyngeal Swallow: 1=Bolus head in valleculae Pharyngeal Impairment: Soft Palate Elevation: 0=No bolus between soft palate (SP)/pharyngeal wall (PW) Pharyngeal Impairment: Laryngeal Elevation: 0=Complete superior movement of thyroid cartilage (see description) Pharyngeal Impairment: Anterior Hyoid Excursion: 0=Complete anterior movement Pharyngeal Impairment: Epiglottic Movement: 0=Complete inversion Pharyngeal Impairment: Laryngeal Vestibular Closure:: 1=Incomplete: narrow column air/contrast in laryngeal vestibule Pharyngeal Impairment: Pharyngeal Stripping Wave: 0=Present: complete Pharyngeal Impairment: Pharyngeal Contraction: Did not test Pharyngeal Impairment: Pharyngoesophageal Segment Openin=Partial distention/partial duration: partial obstruction of flow Pharyngeal Impairment: Tongue Base (TB) Retraction: 1=Trace column of contrast/air between TB and posterior PW Pharyngeal Impairment: Pharyngeal Residue: 1=Trace residue within or on pharyngeal structures Pharyngeal Impairment: Esophageal Clearance Upright Position: Did not test Impressions and Recommendations Clinical Observations: Current (pre-evaluation) Intake/Diet: Pre-Study Functional Oral Intake Scale (FOIS): 6- Total oral intake with no special preparation, but must avoid specific foods or liquid items [facility] ID: [id number] [facility] Results: Lip closure for intraoral bolus containment could not be assessed due to logistical reasons not related to physiologic impairment. Tongue control during bolus hold maintained a cohesive bolus held between tongue to palate seal. Bolus preparation and mastication demonstrated disorganized chewing/mashing with solid pieces of the bolus unchewed. Bolus transport/lingual motion demonstrated delayed initiation of tongue motion. Oral residue was a collection on oral structures. Initiation of the pharyngeal swallow occurred when the bolus head was in the valleculae. Soft palate elevation resulted in no bolus between the soft palate and the pharyngeal wall. Laryngeal elevation demonstrated complete superior movement of the thyroid cartilage with complete approximation of the arytenoids to the epiglottic petiole. Anterior hyoid excursion demonstrated complete anterior movement. Epiglottic movement resulted in complete inversion. Laryngeal vestibular closure was incomplete, with a narrow column of air/contrast noted within the laryngeal vestibule at the height of the swallow. Pharyngeal stripping wave was present and complete. Pharyngeal contraction could not be determined due to logistical reasons not related to physiologic impairment. Pharyngoesophageal segment opening demonstrated partial distension/partial duration, with partial obstruction of bolus flow. Tongue base retraction allowed a trace column of contrast or air between the retracted tongue base and the posterior pharyngeal wall. Pharyngeal residue was a trace within or on pharyngeal structures. Esophageal clearance in the upright position could not be assessed due to logistical reasons not related to physiologic impairment. Oral Impairment Score: 6 (absence of score, component 1) Pharyngeal Impairment Score: 2 (absence of score, component 13) Esophageal Impairment Score: --- (absence of score, component 17) Laryngeal Penetration and Aspiration: Penetration was observed in today's study. Thin Contrast entered the airway, remained above the vocal folds, and was ejected from the airway. PLAN: Intake Recommendations: Post-Study Functional Oral Intake Scale (FOIS): 6- Total oral intake with no special preparation, but must avoid specific foods or liquid items SUMMARY: Pt was provided Thin Liquids, Puree and Regular Solids mixed with Barium Contrast. She was noted to have flash penetration with consecutive sips of Thin Liquids. This is deemed within functional limits. She was placed in an A/P position and noted to maintain solid food in the right side of her mouth while chewing. Oral mech exam was positive for L-side tongue weakness. She was provided literature on how to maintain a soft food diet. Treatment not indicated until further clarification of her underlying disease. Consider Brain MRI to rule out unknown infarcts and re-consult with Neurosurgery to review long-term effects of her spinal surgery. Liquid Intake Recommendation: Thin Liquid Intake Strategies: Unrestricted Dietary Recommendations: Chopped/Advanced (NDD3) Medication Administration: Whole with Liquid Please contact the pharmacy regarding appropriate crushable or liquid drug formulations that are available whenever modified delivery is recommended. Compensatory Strategies Recommended: Sitting Upright (90 deg) Double Swallow Menselsohn Maneuver Liquids from Cup Supervision during eating and or drinking: Total Assistance (1:1) Recommended Treatments: Compens. Strategy Educat. Recommendation for Speech Therapy: Discharged with Instructions for Home Use Text Comment: Following today's results, Celina was offered a written hand-out for Soft and Bite-Sized Solids (IDDSI Level 6). This is not a formal recommendation for her given her adequate airway protection. But merely informational for her as she reports she is already preferring softer solids given her L-side tongue weakness. Timeline to reassess: PRN Quarryman Clinician/Clinical Fellow: No Supervisory Statement: N/A Speech Language Pathologist:
== END 2024-10-10 10:24 | disposition home or self-care (01) ==
LOC: HO.XRAY 10:23
PROVIDERS: PCP Internal Medicine; Visit Provider Physician Assistant
DX: R13.12 Dysphagia, oropharyngeal phase (principal)
CPT/HCPCS: 74230; 92611

== ENCOUNTER → 2024-10-10 10:25 | Outpatient (BNV) | payer MEDICARE, MEDICAID, SELFPAY | PROVIDERS: PCP Internal Medicine; Visit Provider Physician Assistant Surgical | DX: R13.10 Dysphagia, unspecified (principal) | CPT/HCPCS: 74230 ==

== ENCOUNTER 2024-11-01 21:04 | Emergency (ER) | payer MEDICARE, SELFPAY ==
--- NOTE | ~2024-11-01 | XR_ITS ---
CLINICAL HISTORY: pain no trauma 4 view right knee Comparison: CR/SR - XR KNEE RT 4V - 02/06/22 11:10 EDT Findings: Bones intact. No dislocations. No significant arthritic change or erosions. No joint effusion. No radiopaque foreign body. IMPRESSION: 1. No acute findings. This document has been electronically signed by: Heath Mota MD on 11/01/2024 22:19:55
--- NOTE | ~2024-11-01 | XR_ITS ---
CLINICAL HISTORY: pain no trauma 4 view left knee Comparison: None Findings: No fractures or dislocations. No significant loss of joint space, osteophytes, or erosions. No joint effusion. No radiopaque foreign body. IMPRESSION: 1. No acute findings. This document has been electronically signed by: Heath Mota MD on 11/01/2024 22:19:39
--- OUTSIDE RECORDS SUMMARY | 2024-11-01 21:06 | XMS_ITS | Continuity of Care Document ---
Author Organization [place] - [facility], [facility] Address [address] [place] [id number] Care Team Providers Care Tongue Binder Name Role Phone SUNITHA WHITE Primary Care [...] issues, recommend she re-establish with GI at [facility] for evaluation and long-term management. Patient may return to the office as needed. Not available 09/13/2024 13:49:53 Plan of Treatment Reminders Order Date Submit Date Provider Last Modified By Organization Details Last Modified Time Details Appointments None recorde d. Lab None recorde d. Referral gastroe nterolo gist referra l - Referra l for reflux. Thank you. 2023 024 [email or web address] 2 [facility], [address] [place] [address] Dr, 3rd Fl, [place], [address], 4 09:50:48 speech therapy referra l - Good morning LyAlize Celina will need speech therapy . Thank you! 2023 024 [id number] 2 Ly Segundo [place], [address], [address], [place], [address], 4 09:51:50 Procedures None recorde d. Surgeries None recorde d. Imaging [place], modifie d barium swallow study 2023 024 [email or web address] [facility] ([facility]), [address] [place] [address], [address], 4 14:12:04 Medication Orders None recorde d. Patient TargetsNo targets recorded. Patient InstructionsNo instructions recorded. 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 Thank you. Referring Physician: Lynne Membreno, Otolaryngology, Encounter Date: 09/13/2024 Good morning Erica. Patrick will need speech therapy. Thank you! Referring Physician: Lynne Membreno, Otolaryngology, Encounter Date: 09/13/2024 Results Created Date Observation Date Name Description Value Unit Range Abnormal Flag Note LastModifiedBy Organization Detail LastModifiedTime 10/11/2010/10/2024 [place], modif kelsied lorna dumont study No observ ation record ed. Not Available 2023 15:04:12 10/16/2010/10/2024 FLyulissaif hortensia dumont study No observ ation record ed. BARCODE [facility] ([facility]) [address] [place], [address], 10/16/2024 12:07:13 Result Notes None recorded. Problems Name Problem SNOMED Code Status Onset Date Resolution Date Notes Provider Name and Address Organization Details Recorded Time Disorder of smell 786835508 Active 2019 Other disturbanc es of smell and taste; Note: Date Diagnosed: 11/23/2019 11:56 AM (R43.8) Not Available [facility] 4 02:26:51 Disorder of taste 248436307 Active 2019 Other disturbanc es of smell and taste; Note: Date Diagnosed: 11/23/2019 11:56 AM (R43.8) Not Available [facility] 4 02:26:51 Allergic rhinitis 75703332 Active 2019 Allergic rhinitis: Due to other allergen; Note: Date Diagnosed: 12/24/2019 1:44 PM (477.8) Not Available [facility] 4 02:27:00 Obstructi ve sleep apnea syndrome 17543752 Active 2019 Obstructiv e sleep apnea (adult) (pediatric ); Note: Date Diagnosed: 11/23/2019 11:51 AM (G47.33) Not Available [facility] 4 02:27:14 Abnormal auditory perceptio n 79645117 Active 2019 Other abnormal auditory perception s, bilateral; Note: Date Diagnosed: 11/23/2019 11:57 AM (H93.293) Not Available [facility] 4 02:26:57 Asymmetri silvana sensorine ural hearing loss 154482240 Active 2019 Hearing loss: Sensorineu ral hearing loss, asymmetric al; Note: Date Diagnosed: 01/24/2020 2:36 PM (389.16) Not Available [facility] 4 02:27:10 Subjectiv e tinnitus 34555147 Active 2019 Subjective tinnitus; Note: Date Diagnosed: 01/24/2020 2:36 PM (388.31) Not Available [facility] 4 02:27:03 Nasal congestio n 11200558 Active 2019 Nasal congestion ; Note: Date Diagnosed: 11/23/2019 11:51 AM (R09.81) Not Available [facility] 4 02:27:16 Posterior rhinorrhe a 02163708 Active 2019 Postnasal drip; Note: Date Diagnosed: 11/23/2019 11:57 AM (R09.82) Not Available [facility] 4 02:26:49 Deviated nasal septum 811449629 Active 2019 Deviated nasal septum; Note: Date Diagnosed: 11/23/2019 11:57 AM (J34.2) Not Available [facility] 4 02:27:20 Dysphonia 13501270 Active 2019 Hoarseness ; Note: Date Diagnosed: 11/23/2019 11:51 AM (R49.0) Not Available [facility] 4 02:27:15 Sensorine ural hearing loss 66548487 Active 2019 Sensorineu ral hearing loss, unilateral , left ear, with unrestrict ed hearing on the contralate ral side; Note: Date Diagnosed: 12/10/2019 3:57 PM (H90.42) Not Available [facility] 4 02:27:02 Dysphagia 71765388 Active 2023 LYNNE MEMBRENO PA-C [address], [place], [place], [address] , [place] - [facility] 4 15:15:08 Perennial allergic rhinitis 557291297 Active 2023 LYNNE MEMBRENO PA-C [address], [place], [place], [address] , [place] - [facility] 4 15:18:54 Taste sense altered 086687065 Active [address] WO[address]SC [address], [place], [place], [address] , [place] - [facility] 4 15:25:12 Laryngoph aryngeal reflux 447522008 Active 2023 LYNNE MEMBRENO PA-C [address], [place], [place], [address] , [place] - [facility] 4 13:15:27 Lingual dysarthri a 167625751 Active 2023 LYNNE MEMBRENO PA-C [address], [place], [place], [address] , [place] - [facility] 4 13:22:17 Dysarthri a 4193820 Active 2023 [address] WO[address]SC [address], [place], [address] , [place] - [facility] 4 13:23:12 Enlargeme nt of tongue 97721654 Active 2023 LYNNE MEMBRENO PA-C [address] [facility],[address] [facility] [place], [address] , [facility] - [facility] 4 09:21:26 Congenita l macroglos lori 738508334 Active 2023 Rachell hernandez, [place] - [facility] 4 11:50:46 Gastroeso phageal reflux disease without esophagit is 144076908 Active 2023 LYNNE MEMBRENO PA-C [address] [facility],[address], [place], [address] , [facility] - [facility] 4 13:48:10 Problem Notes None recorded. Procedures Surgical History Date Name Laterality Status Provider Name and Address Organization Details Recorded Time 04/27/20 24 Fiberoptic Laryngoscopy (Comprehensive) completed LYNNE MEMBRENO PA-C [address] [facility],[place] [address], [place], [address], [facility] - [facility] 04/27/2024 16:36:53 Imaging Results None recorded. Procedure Notes None recorded. Medical Equipment None Reported. Allergies Allergen ID Allergen Name Allergen Category Reaction Reaction Severity Criticality Documentation Date Start Date Code Code System Note Provider Name and Address Organization Details Recorded Time 27270 aspirin medicatio n Not available Not available Not available 03/13/2024 1191 RxNorm React ion: other react ion, ringi ng in ears; Not Available [facility] 4 01:00:50 23824 amoxicill in medicatio n other Not available Not available 03/13/2024 723 RxNorm React ion: unkno wn, unspe cifie d;; Not Available [facility] 4 01:00:51 52774 Keflex medicatio n other Not available Not available 03/13/202487460 7 RxNorm React ion: unkno wn, unspe cifie d;; Not Available [facility] 4 01:00:56 82988 acetamino phen / hydrocodo ne medicatio n other Not available Not available 03/13/202495395 2 RxNorm React ion: unkno wn, unspe cifie d;; Not Available [facility] 4 01:01:00 Medications Name Sig Start Date Stop Date Status Note LastModified by Organization Details LastModified Time losartan 50 mg tablet 05/18 completed Medicati on ID: [id number] D uration Value: 90 Brand Name: losartan [...] 24 hr 05/18 completed Medicati on ID: [id number] D uration Value: 30 Brand Name: oxybutyn [...] Not Available Not Available No t Available famotidin e 40 mg tablet Take 1 tablet every day by oral route in the evening for 30 days. active Not Available Not Available No t Available ropinirol e 2 mg tablet active Not Available Not Available Not Available ropinirol e 0.5 mg tablet 05/18 completed Medicati on ID: [id number] D uration Value: 90 Brand Name: ragini ness Send Method: E-Prescr ibed Sub s Allowed: subs [place] Speci al Instruct ion: TAKE 1 TAB BY MOUTH 1-3 HRS BEFORE BED Medi cationGe nericNam e: ragini ness Not Available Not Available Not Available prednison [...] spray,nhan pension 2020 active Medicati on ID: [id number] B rand Name: fluticas one propiona te [...] Updated DateTime 09/13/2024 152.4 cm 51.6 kg/m2 206853.39 g Kassandra Lagos [place] - [facility] 09/13/2024 13:18:31 Social History None recorded. Functional Status None recorded. Mental Status None recorded. Family History Nothing Reported. Medical History No medical history recorded. Gynecological HistoryNo gynecological history recorded. Obstetrics History GPAL:G 0 P 0 0 0 0 Past Encounters Encounter ID Performer Location Encounter Start Date Encounter Closed Date Diagnosis/Indication Diagnosis SNOMED-CT Code Diagnosis ICD10 Code [id number] HAYLEY BAEZA MD [facility] [address] [address] 09/13/2024 13:16:03 09/13/2024 14:08:39 Lingual dysarthria 296835692 R47.1 Dysphagia 58242959 R13.1 2 Gastroesop hageal reflux disease without esophagitis 012100502 K21.9 Health Concerns Section Related Observation LastModified by Organization Detai ls LastModified Time None Recorded Concern Status LastModified by Organization Details LastModified Time None Recorded Payers Encounter Date Sequence Insurance Name Policy Number Policy Scott Covered Member ID Scott Member ID Guarantor Name 09/13/2024 1 [place]: [employer] Celina Marcelino [id number] Celina Marcelino 09/13/2024 2 [place] [facility] Celina Marcelino [id number] Celina Marcelino Notes Date Note Type Note [...] Back to smoking marijuana. HAYLEY BAEZA MD [address] [place] [address], [place], [address], [facility] - [facility] 09/13/2024 20:59:42 OBGyn Episode No OBEpisode recorded.
--- OUTSIDE RECORDS SUMMARY | 2024-11-01 21:06 | XMS_ITS | Data Portability ---
Author Organization [place] - [facility], Allergy Address [address] [address] Care Team Providers Care Cold Rolling Supervisor Name Role Phone SUNITHA WHITE Primary Care Provider [phone] Assessment Encounter Date Assessment Date Assessment LastModified [...] issues, recommend she re-establish with GI at [place] for evaluation and long-term management. Patient may return to the office as needed. Not available 09/13/2024 13:49:53 Plan of Treatment Reminders Order Date Submit Date Provider Last Modified By Organization Details Last Modified Time Details Appointments None recorde d. Lab unliste d lab - fungal surface swab (mansoor) 2023 024 ROHINI [facility], 100 [facility] [address], [place], [address], 10:13:35 microor ganism identif ication , unspeci fied specime n 2023 024 ROHINI [facility], [address], [place], [address], 4 10:13:36 Referral gastroe nterolo gist referra l - Referra l for dysphag ia and LPR. [facility] Office preferr ed. Thank you. 2023 024 [email or web address] 2 [facility], [address], [place], [address], 12:25:38 speech therapy referra l - Referra l for speech therapy . Thanks! 2023 024 [email or web address] 2 Ly Segundo [place], [address] [facility], [address], [place], [address], 4 12:25:59 gastroe nterolo gist referra l - Referra l for reflux. Thank you. 2023 024 [id number] 2 [facility], [address] [place] [address] [address], [address], [place], [address], 4 09:50:48 speech therapy referra l - Good morning Erica. Patrick will need speech therapy . Thank you! 2023 024 [email or web address] 2 Ly Segundo Ma, [address] [facility], [address], [place], [address], 4 09:51:50 Procedures None recorde d. Surgeries None recorde d. Imaging [place], modifie d barium swallow study 2023 024 [facility], [address], [place], [address], 4 10:20:10 [place], modifie d barium swallow study 2023 024 [email or web address] [facility], [address], [place], [address], 4 10:20:53 [place], modifie d barium swallow study 2023 024 [email or web address] [facility] (Imaging), [address] [facility], [place], [address], 14:12:04 Medication Orders omepraz ole 20 mg capsule ,delaye d release 2023 024 [email or web address] [id number], [address] [place], [address], 10:57:42 loratad ine 10 mg tablet 2023 024 ROHINI [id number], [address] [facility], [place], [address], 15:19:45 Patient TargetsNo targets recorded. Patient Instructions Encounter Date Encounter Id Patient Instructions Last Modified By Organization Details Last Modified Time 04/27/2024 [id number] Reviewed with patient possibly multiple issues going [...] Not available 04/27/2024 16:41:09 Reason for Referral Stereotyper Referral for Dysphagia Referral for dysphagia and LPR. [place] [facility] preferred. Thank you. Referring Physician: Bri Rothman, Otolaryngology, Encounter Date: 05/25/2024 Referral for speech therapy. Thanks! Referring Physician: Bri Rothman Otolaryngology, Encounter Date: 05/25/2024 Stereotyper Referral for Gastroesophageal reflux disease without esophagitis Referral for reflux. Thank you. Referring Physician: Bri Rothman Otolaryngology, Encounter Date: 09/13/2024 Good morning Ly. Celina will need speech therapy. Thank you! Referring Physician: Bri Rothman, Otolaryngology, Encounter Date: 09/13/2024 Results Created Date Observation Date Name Description Value Unit Range Abnormal Flag Note LastModifiedBy Organization Detail LastModifiedTime 04/27/20 24 05/08/2024 FUNGA L SURFA CE SWAB (MANSOOR ) media COMMEN T Testi ng not perfo rmed due to the age of this speci men. Not Available [facility] ([facility]) [address] [place], [address], 05/08/2024 10:13:35 04/27/2005/08/2024 FUNGA L SURFA CE SWAB (MANSOOR ) sample description COMMUNITY HEALTH EDUCATOR Not Available [facility] ([facility]) [address] [place], [address], 05/08/2024 10:13:35 04/27/20 24 05/08/2024 FUNGA L SURFA CE SWAB (MANSOOR ) total fungal count COMMUNITY HEALTH EDUCATOR Not Available [facility] ([facility]) [address] [place], [address], 05/08/2024 10:13:35 04/27/20 24 05/08/2024 FUNGA L SURFA CE SWAB (MANSOOR ) comment COMMUNITY HEALTH EDUCATOR Not Available [facility] ([facility]) [address] [place], [address], 05/08/2024 10:13:35 04/27/20 24 05/08/2024 FUNGA L SURFA CE SWAB (MANSOOR ) interpretati on COMMUNITY HEALTH EDUCATOR Not Available [facility] ([facility]) [address] [place], [address], 05/08/2024 10:13:35 04/27/20 24 04/30/2024 AEROB IC BACTE RIAL CULTU RE aerobic bacterial culture Final report Not Available [facility] ([facility]) [address] [place], [address], 05/08/2024 10:13:36 04/27/20 24 04/30/2024 AEROB IC BACTE RIAL CULTU RE result 1 Mixed skin jeannine Not Available [facility] ([facility]) [address] [facility], [place], [address], 05/08/2024 10:13:36 04/27/20 24 05/08/[address] PROBL EM request problem COMMEN T Testi ng not perfo rmed due to the age of this speci men. TEST: [id number] 0 Funga l Surfa ce Swab (MANSOOR ) Not Available [facility] ([facility]) [address] [facility], [place], [address], 05/08/2024 10:13:37 06/19/20 24 12/10/2019 imagi ng/di [...] L CENTER Diagno stic Imagin g Depart [address] [address] ____ Sanchez t: COL FRANKIE ORTEGA D.O.B. /Age/S ex: 1974 - 48 - F Unit#: [id number] Locati on/Sta tus: SPREHS T/PRE CLI Accoun t#: [id number] Mnmarjan ic/Ord ering Site: [facility] Orderi ng Physic lonre: MAYITO VELASQUEZ PA-C ___ CR Barium Swallo w W Video - - 0939 Report Status :Love smith EXAMIN ATION: Modifi ed barium swallo w. INDICA TION: Dyspha rob. TECHNI QUE: Modifi ed barium swallo w was perfor med on the latera l fluoro scopy- guided sanchez miramontes t in presen ce of speech therap ist. ROBIN GS: Follow ing oral admini strati on [...] Date/T martínez: 1109 Sign date/T martínez: 1115 [facility] (Central Scheduling Radiology) [address] [place], [address], 07/19/2024 16:45:30 10/11/20 24 10/10/2024 [place], modif ied lorna dumont study No observ ation record ed. Not Available 2023 15:04:12 10/16/20 24 10/10/2024 [place], modif ied lorna dumont study No observ ation record ed. [facility] (Imaging) [address] [place], [address], 10/16/2024 12:07:13 Result Notes None recorded. Problems Name Problem SNOMED Code Status Onset Date Resolution Date Notes Provider Name and Address Organization Details Recorded Time Disorder of smell 715583620 Active 2019 Other disturbanc es of smell and taste; Note: Date Diagnosed: 11/23/2019 11:56 AM (R43.8) Not Available [facility] 4 02:26:51 Disorder of taste 106357471 Active 2019 Other disturbanc es of smell and taste; Note: Date Diagnosed: 11/23/2019 11:56 AM (R43.8) Not Available [facility] 4 02:26:51 Allergic rhinitis 90896124 Active 2019 Allergic rhinitis: Due to other allergen; Note: Date Diagnosed: 12/24/2019 1:44 PM (477.8) Not Available [facility] 4 02:27:00 Obstructi ve sleep apnea syndrome 01429423 Active 2019 Obstructiv e sleep apnea (adult) (pediatric ); Note: Date Diagnosed: 11/23/2019 11:51 AM (G47.33) Not Available [facility] 4 02:27:14 Abnormal auditory perceptio n 63009509 Active 2019 Other abnormal auditory perception s, bilateral; Note: Date Diagnosed: 11/23/2019 11:57 AM (H93.293) Not Available [facility] 4 02:26:57 Asymmetri silvana sensorine ural hearing loss 468738696 Active 2019 Hearing loss: Sensorineu ral hearing loss, asymmetric al; Note: Date Diagnosed: 01/24/2020 2:36 PM (389.16) Not Available [facility] 4 02:27:10 Subjectiv e tinnitus 15936612 Active 2019 Subjective tinnitus; Note: Date Diagnosed: 01/24/2020 2:36 PM (388.31) Not Available [facility] 4 02:27:03 Nasal congestio n 16789887 Active 2019 Nasal congestion ; Note: Date Diagnosed: 11/23/2019 11:51 AM (R09.81) Not Available [facility] 4 02:27:16 Posterior rhinorrhe a 90872513 Active 2019 Postnasal drip; Note: Date Diagnosed: 11/23/2019 11:57 AM (R09.82) Not Available [facility] 4 02:26:49 Deviated nasal septum 362888373 Active 2019 Deviated nasal septum; Note: Date Diagnosed: 11/23/2019 11:57 AM (J34.2) Not Available [facility] 4 02:27:20 Dysphonia 71617759 Active 2019 Hoarseness ; Note: Date Diagnosed: 11/23/2019 11:51 AM (R49.0) Not Available [facility] 4 02:27:15 Sensorine ural hearing loss 77999031 Active 2019 Sensorineu ral hearing loss, unilateral , left ear, with unrestrict ed hearing on the contralate ral side; Note: Date Diagnosed: 12/10/2019 3:57 PM (H90.42) Not Available [facility] 4 02:27:02 Dysphagia 90630752 Active 2023 BRI ROTHMAN PA-C [address], [place], [address] , [place] - [facility] 4 15:15:08 Perennial allergic rhinitis 653242928 Active 2023 BRI ROTHMAN PA-C [address], [place], [address] , [place] - [facility] 4 15:18:54 Taste sense altered 215711504 Active 2023 TIEN WOODS-C [address], [place], [address] , [place] - [facility] 4 15:25:12 Laryngoph aryngeal reflux 770833006 Active 2023 [address] WO[address]SC [address], [place], [address] , [place] - [facility] 4 13:15:27 Lingual dysarthri a 916305565 Active 2023 BRI ROTHMAN PA-C [address], [place], [address] , [place] - [facility] 4 13:22:17 Dysarthri a 7419372 Active 2023 BRI ROTHMAN PA-C [address] [facility], [place], [place], [address] , [place] - [facility] 4 13:23:12 Enlargeme nt of tongue 95277225 Active 2023 BRI ROTHMAN PA-C [address] [facility] [address], [place], [place], [address] , [place] - [facility] 4 09:21:26 Congenita l macroglos lori 338453030 Active 2023 Rachell hernandez, [place] - [facility] 4 11:50:46 Gastroeso phageal reflux disease without esophagit is 467730860 Active 2023 BRI ROTHMAN PA-C [address] [facility] [address], [place], [place], [address] , [place] - [facility] 4 13:48:10 Problem Notes None recorded. Procedures Surgical History Date Name Laterality Status Provider Name and Address Organization Details Recorded Time 04/27/20 24 Fiberoptic Laryngoscopy (Comprehensive) completed BRI ROTHMAN PA-C [address] [facility] [address], [place], [address], [place] - [facility] 04/27/2024 16:36:53 Imaging Results Imaging Date Name Status LastModified by Organiz [facility] Details LastModified Time 12/10/2019 imaging/diagno stic result [...] not available 06/19/2024 12:32:11 07/17/2024 chestxr completed [facility] (Central Scheduling Radiology) [address] [place], [address], 07/19/2024 16:45:30 10/10/2024 [place], modified barium swallow study completed Information not available 10/12/2024 15:04:12 10/10/2024 [place], modified barium swallow study completed [facility] (Imaging) [address] [place], [address], 10/16/2024 12:07:13 Procedure Notes None recorded. Medical Equipment None Reported. Allergies Allergen ID Allergen Name Allergen Category Reaction Reaction Severity Criticality Documentation Date Start Date Code Code System Note Provider Name and Address Organization Details Recorded Time 05408 aspirin medicatio n Not available Not available Not available 03/13/2024 1191 RxNorm React ion: other react ion, ringi ng in ears; Not Available [facility] 4 01:00:50 42682 amoxicill in medicatio n other Not available Not available 03/13/2024 723 RxNorm React ion: unkno wn, unspe cifie d;; Not Available [facility] 4 01:00:51 92831 Keflex medicatio n other Not available Not available 03/13/202474554 7 RxNorm React ion: unkno wn, unspe cifie d;; Not Available [facility] 4 01:00:56 14447 acetamino phen / hydrocodo ne medicatio n other Not available Not available 03/13/2024 27819 2 RxNorm React ion: unkno wn, unspe cifie d;; Not Available [facility] 4 01:01:00 Medications Name Sig Start Date Stop Date Status Note LastModified by Organization Details LastModified Time losartan 50 mg tablet 05/18 completed Medicati on ID: [id number] D uration Value: 90 Brand Name: losartan Send Method: E-Prescr ibed Sub s Allowed: subs ANTONIO Johnson al Instruct ion: TAKE 1 TABLET BY [...] 24 hr 05/18 completed Medicati on ID: [id number] D uration Value: 30 Brand Name: oxybutyn in chloride Send Method: E-Prescr ibed Sub s Allowed: subs ANTONIO Johnson al Instruct ion: TAKE 1 TABLET BY [...] mg tablet 05/18 completed Medicati on ID: 024514 D uration Value: 90 Brand Name: ragini [...] ne propionat e 50 mcg/actua tion nasal spray,[facility] 2020 active Medicati on ID: 478941 B rand Name: fluticas one propiona te [...] Updated DateTime 05/25/2024 152.4 cm 51.6 kg/m2 273190.39 g Melissa Bal [facility] 05/25/2024 13:02:29 Date Recorded Body height Body mass index (BMI) Body weight Provider Name and Address Organization Details Last Updated DateTime 09/13/2024 152.4 cm 51.6 kg/m2 263588.39 g Kassandra Demond [facility] 09/13/2024 13:18:31 Social History None recorded. Functional Status None recorded. Mental Status None recorded. Family History Nothing Reported. Medical History No medical history recorded. Gynecological HistoryNo gynecological history recorded. Obstetrics History GPAL:G 0 P 0 0 0 0 Past Encounters Encounter ID Performer Location Encounter Start Date Encounter Closed Date Diagnosis/Indication Diagnosis SNOMED-CT Code Diagnosis ICD10 Code [id number] BRI ROTHMAN PA-C [facility] [address] [address] 04/27/2024 14:05:05 04/27/2024 15:23:02 Dysphagia 95249045 R13.10 Perennial allergic rhinitis 955542720 J30.89 Taste sense altered 2718 48825 R43.2 [id number] JOHNNY FAIR MD [facility] [address] [address] 05/25/2024 12:36:18 05/25/2024 13:24:46 Laryngopharyngeal reflux 082046433 K21.9 Dysphagia 81368588 R13.1 2 Dysarthria 2290418 R47.1 [id number] HAYLEY BAEZA MD [facility] [address] [address] 09/13/2024 13:16:03 09/13/2024 14:08:39 Lingual dysarthria 570619696 R47.1 Dysphagia 07074486 R13.1 2 Gastroesop hageal reflux disease without esophagitis 605743620 K21.9 Health Concerns Section Related Observation LastModified by Organization Detai ls LastModified Time None Recorded Concern Status LastModified by Organization Details LastModified Time None Recorded Advance Directives Directive None Recorded Payers Encounter Date Sequence Insurance Name Policy Number Policy Scott Covered Member ID Scott Member ID Guarantor Name 04/27/2024 1 [place] B-[place]: [employer] [facility] Celina M Marcelino [id number] Celina Marcelino 04/27/2024 2 [place] [facility] Celina M Marcelino [id number] Celina Olegario Marcelino 05/25/2024 1 MEDICARE B-[place]: [employer] [facility] Celina Olegario Marcelino [id number] Celina [place] 05/25/2024 2 [place] [facility] Celina Olegario Marcelino [id number] Celina [place] 09/13/2024 1 [place] [employer] [facility] Celina M Marcelino [id number] Celina Melvin [place] 09/13/2024 2 [place] [facility] Celina M Marcelino [id number] Celina [place] Notes Date Note Type Note Provider Name [...] allergic rhinitis and recently [facility]. BRI ROTHMAN PA-C [address], [address], [facility] - [facility] 04/27/2024 16:41:39 05/25/2024 text/html 48 year female [...] hoarseness, hemoptysis, fevers. JOHNNY CRISOSTOMO MD [address] [facility] [address], [place], [address], [place] - [facility] 05/25/2024 16:19:01 09/13/2024 text/html 49 year old [...] Back to smoking marijuana. HAYLEY BAEZA MD [address] [place] [address], [place], [address], [place] - [facility] 09/13/2024 20:59:42 OBGyn Episode No OBEpisode recorded.
[2024-11-01 21:10] VITALS: BP 167/67; PULSE 73; RESP 17; TEMP 36.6; O2SAT 98; BMI 53.9
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
[2024-11-01] MEDS: oxyCODONE HCl Immed Release 5 MG TABLET PO (23:41)
[2024-11-01 23:48] VITALS: BP 167/67; PULSE 73; RESP 17; TEMP 36.6; O2SAT 98
== END 2024-11-01 23:56 | disposition home or self-care (01) ==
LOC: HO.ED 23:57
PROVIDERS: Emergency Provider Emergency Medicine; PCP Internal Medicine
DX: M25.561 Pain in right knee (principal); M25.562 Pain in left knee; M25.552 Pain in left hip; Z79.899 Other long term (current) drug therapy
CPT/HCPCS: 73564; 87491; 87591; 99283; 99284

== ENCOUNTER → 2024-11-01 21:20 | Outpatient (BNV) | payer MEDICARE, MEDICAID, SELFPAY | PROVIDERS: PCP Internal Medicine; Visit Provider Student in an Organized Health Care Education/Training Program | DX: M17.0 Bilateral primary osteoarthritis of knee (principal) | CPT/HCPCS: 99499 ==

== ENCOUNTER 2024-11-08 11:04 | Outpatient (REF) | payer MEDICARE, MEDICAID, SELFPAY ==
[2024-11-08 12:58] LABS: MANUAL DIFF FLAG NO
[2024-11-08 13:38] LABS: Basophils Percent Auto 0.3 % (0-2); Eosinophils Absolute Auto 0.2 X10*3/uL (0.0-0.4); Eosinophils Percent Auto 2.8 % (0-4); Hematocrit 39.3 % (37.0-47.0); Hemoglobin 13.2 g/dl (12.0-16.0); Imm Gran Abs Auto 0.04 X10*3/uL (0.00-0.03); Imm Gran Pct Auto 0.5 % (0.0-0.4); Lymphocytes Absolute Auto 2.3 X10*3/uL (1.2-4.9); Lymphocytes Percent Auto 26.6 % (20-40); Mean Corpuscular HGB Conc 33.6 g/dl (31.0-35.0); Mean Corpuscular Hemoglobin 31.2 pg (27.0-33.0); Mean Corpuscular Volume 92.9 fL (80.0-98.0); Mean Platelet Volume 10.3 fL (9.4-12.3); Monocytes Absolute Auto 0.4 X10*3/uL (0.1-1.2); Monocytes Percent Auto 5.1 % (2-11); Neutrophils Absolute Auto 5.6 x10*3/uL (2.0-8.3); Neutrophils Percent Auto 64.7 % (45-73); Platelet Count 233 X10*3/uL (160-400); Red Blood Count 4.23 X10*6/uL (4.20-5.50); Red Cell Distribution Width 13.4 % (11.0-16.0); White Blood Count 8.7 X10*3/uL (4.8-10.8)
--- OUTSIDE RECORDS SUMMARY | 2024-11-08 13:54 | XMS_ITS | Patient Health Record ---
Author Organization [facility] Address [address] [address] Care Team Providers Care Brand Advocate Name Role Phone Danya Oneil Primary Care Provider Unavailab le Allergies Allergen (clinical drug ingredient) Drug/Non Drug Allergy documented on EMR Reaction Allergy Type Onset Date Status aspirin Aspirin Unknown Drug Allergy Active Keflex Unknown Drug Allergy Active Vicodin Unknown Drug Allergy Active Substance with penicillin structure and antibacterial mechanism of action (substance) Penicillins Unknown Drug Allergy Active Reason For Referral No Information Medications Medication SIG (Take, Route, Frequency, Duration) Notes [...] bedtime Orally Once a day Active Nasal [place] Active Vitamin D3 50 MCG (1999) 1 tablet Orally Once a day Active Problems Problem Type SNOMED Code ICD Code Onset Dates Problem Status W/U Status Risk Notes Problem 89194456 Varicose veins of bilateral lower extremities with pain (I83.813) Active confirmed Problem 51654024 Rheumatoid nodule, right ankle and foot (M06.371) Active confirmed Problem 01604495 Rheumatoid nodule, left ankle and foot (M06.372) Active confirmed Problem 138460896 Rheumatoid arthritis involving multiple sites with positive rheumatoid factor (M05.79) Active confirmed Plan Of Treatment Pending Test Test Name Order Date INJ TENDON SHEATH/LIGAMENT/FASCIA 2019 INJ TENDON SHEATH/LIGAMENT/FASCIA 2020 DRAIN/INJECT, SMALL JOINT/BURSA 09/09/20 20 ASPIRATE/INJ GANGLION CYST 09/09/2020 Insurance Providers Payer Name Payer Address Payer Phone Subscriber Number Group Number Insured Name Patient Relationship to Insured Coverage Start Date Coverage End Date [employer] of [place] [address] [place] [phone] [id number] Celina Marcelino Self - patient is the insured Medications Administered Medication Instructions Date of Administration Dosage Notes Dexamethasone 09/09/2020 0.5 mL Dexamethasone 12/01/2020 0.5 mL Kenalog 09/09/2020 0.5 mL Kenalog 12/01/2020 0.5 mL Medical (General) History Medical History History ICD Code scoliosis right [...]
[2024-11-08 14:05] LABS: Alanine Aminotransferase 21 U/L (0-31); Albumin Level 4.1 g/dL (3.5-5.0); Alkaline Phosphatase 66 U/L (39-117); Anion Gap 9 (12-20); Aspartate Amino Transferase 18 U/L (5-31); Bilirubin Total 0.7 mg/dL (0.0-1.0); Blood Urea Nitrogen 14 mg/dL (9-16); Calcium 9.4 mg/dL (8.4-10.2); Carbon Dioxide 30 mmol/L (22-29); Chloride 106 mmol/L (96-108); Cholesterol 141 mg/dL (<200); Estimated Glomerular Filt Rate > 60; Glucose Fasting 97 mg/dL (60-99); HDL Cholesterol 42 mg/dL (>40); Iron 72 mcg/dL (30-160); LDL Cholesterol Calculated 73 mg/dL (<100); Percent Iron Saturation 29 % (15-50); Potassium 3.9 mmol/L (3.3-5.1); Sodium 141 mmol/L (135-145); Total Iron Binding Capacity 250 mcg/dL (228-428); Total Protein 7.1 g/dL (6.5-8.0); Triglycerides 133 mg/dL (<150); Unsaturated Iron Binding 178 ug/dL
[2024-11-08 14:23] LABS: Gamma Glutamyl Transpeptidase 46 U/L (7-33)
[2024-11-08 14:26] LABS: Ferritin 385 ng/mL (10-250); TSH reflex Free T4 2.16 uIU/mL (0.32-4.0); Vitamin D 25-OH Total 48.1 ng/mL (>30)
[2024-11-08 14:28] LABS: Reflex LDLD? No
[2024-11-08 14:35] LABS: Folate 8.1 ng/mL (> or = 4.0); Vitamin B12 435 pg/mL (200-900)
[2024-11-09 09:22] LABS: HBc Num1 0.08 S/CO (0.00-0.79); HBsAGNum1 0.31 S/CO (0.00-0.99); Hepatitis B Core Antibody Nonreactive (Nonreactive); Hepatitis B Surface Antigen Negative (Negative); ~HepC Num1 0.14 S/CO (0.00-0.79); ~Hepatitis B Surface Antibody NONREACTIVE (Nonreactive); ~Hepatitis C Antibody Nonreactive (Nonreactive)
[2024-11-09 18:18] LABS: Immunoglobulin A 173 mg/dL (47-310)
== END 2024-11-08 11:05 | disposition home or self-care (01) ==
LOC: HO.LAB 11:04
PROVIDERS: PCP Internal Medicine; Visit Provider Internal Medicine Gastroenterology
DX: K76.0 Fatty (change of) liver, not elsewhere classified (principal); K21.9 Gastro-esophageal reflux disease without esophagitis; K58.2 Mixed irritable bowel syndrome; Z80.0 Family history of malignant neoplasm of digestive organs; E66.01 Morbid (severe) obesity due to excess calories
CPT/HCPCS: 36415; 80053; 80061; 82306; 82607; 82728; 82746; 82784; 82977; 83540; 84443; 85025; 86704; 86706; 86803; 87340; 99212

== ENCOUNTER 2024-11-08 11:04 | Outpatient (AMB) | payer MEDICARE, MEDICAID, SELFPAY ==
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
[2024-11-08 11:22] VITALS: BP 115/53; PULSE 59; BMI 54.3
--- OUTSIDE RECORDS SUMMARY | 2024-11-08 11:46 | XMS_ITS | Continuity of Care Document ---
Author Organization [place] [facility], [facility] Address [address] [place] [id number] Care Team Providers Care Break Off Worker Name Role Phone SUNITHA WHITE Primary Care Provider [phone] Assessment Encounter Date Assessment Date Assessment LastModified [...] issues, recommend she re-establish with GI at [place] for evaluation and long-term management. Patient may return to the office as needed. Not available 09/13/2024 13:49:53 Plan of Treatment Reminders Order Date Submit Date Provider Last Modified By Organization Details Last Modified Time Details Appointments None recorde d. Lab None recorde d. Referral gastroe nterolo gist referra l - Referra l for reflux. Thank you. 2023 024 [email or web address] 2 [facility], [address] [place] [address] Dr, 3rd Fl, [place], [address], 4 09:50:48 speech therapy referra l - Good morning LyAlize Celina will need speech therapy . Thank you! 2023 024 [email or web address] 2 [place], [address], [address], [place], [address], 4 09:51:50 Procedures None recorde d. Surgeries None recorde d. Imaging [place], modifie d barium swallow study 2023 024 [email or web address] [facility] (Imaging), [address] [place] [address], [address], 4 14:12:04 Medication Orders None recorde d. Patient TargetsNo targets recorded. Patient InstructionsNo instructions recorded. Reason for Referral Cycle Touring Guide Referral for Gastroesophageal reflux disease without esophagitis [...] study No observ ation record ed. BARCODE [facility] ([facility]) [address] [place], [address], 10/16/2024 12:07:13 Result Notes None recorded. Problems Name Problem SNOMED Code Status Onset Date Resolution Date Notes Provider Name and Address Organization Details Recorded Time Disorder of smell 251940278 Active 2019 Other disturbanc es of smell and taste; Note: Date Diagnosed: 11/23/2019 11:56 AM (R43.8) Not Available [facility] 4 02:26:51 Disorder of taste 372219710 Active 2019 Other disturbanc es of smell and taste; Note: Date Diagnosed: 11/23/2019 11:56 AM (R43.8) Not Available [facility] 4 02:26:51 Allergic rhinitis 11575334 Active 2019 Allergic rhinitis: Due to other allergen; Note: Date Diagnosed: 12/24/2019 1:44 PM (477.8) Not Available [facility] 4 02:27:00 Obstructi ve sleep apnea syndrome 07412115 Active 2019 Obstructiv e sleep apnea (adult) (pediatric ); Note: Date Diagnosed: 11/23/2019 11:51 AM (G47.33) Not Available [facility] 4 02:27:14 Abnormal auditory perceptio n 78981823 Active 2019 Other abnormal auditory perception s, bilateral; Note: Date Diagnosed: 11/23/2019 11:57 AM (H93.293) Not Available [facility] 4 02:26:57 Asymmetri silvana sensorine ural hearing loss 945152126 Active 2019 Hearing loss: Sensorineu ral hearing loss, asymmetric al; Note: Date Diagnosed: 01/24/2020 2:36 PM (389.16) Not Available [facility] 4 02:27:10 Subjectiv e tinnitus 37199059 Active 2019 Subjective tinnitus; Note: Date Diagnosed: 01/24/2020 2:36 PM (388.31) Not Available [facility] 4 02:27:03 Nasal congestio n 67617183 Active 2019 Nasal congestion ; Note: Date Diagnosed: 11/23/2019 11:51 AM (R09.81) Not Available [facility] 4 02:27:16 Posterior rhinorrhe a 05956412 Active 2019 Postnasal drip; Note: Date Diagnosed: 11/23/2019 11:57 AM (R09.82) Not Available [facility] 4 02:26:49 Deviated nasal septum 376509755 Active 2019 Deviated nasal septum; Note: Date Diagnosed: 11/23/2019 11:57 AM (J34.2) Not Available [facility] 4 02:27:20 Dysphonia 08072968 Active 2019 Hoarseness ; Note: Date Diagnosed: 11/23/2019 11:51 AM (R49.0) Not Available [facility] 4 02:27:15 Sensorine ural hearing loss 75334435 Active 2019 Sensorineu ral hearing loss, unilateral , left ear, with unrestrict ed hearing on the contralate ral side; Note: Date Diagnosed: 12/10/2019 3:57 PM (H90.42) Not Available [facility] 4 02:27:02 Dysphagia 18152925 Active 2023 LYNNE MEMBRENO PA-C [address], [place], [place], [address] , [place] - [facility] [place] 4 15:15:08 Perennial allergic rhinitis 660365880 Active 2023 LYNNE MEMBRENO PA-C [address], [place], [place], [address] , [place] - [facility] [place] 4 15:18:54 Taste sense altered 907982491 Active 20[address] WO[address]SC [address], [place], [place], [address] , [place] - [facility] [place] 4 15:25:12 Laryngoph aryngeal reflux 704015828 Active 2023 LYNNE MEMBRENO PA-C [address], [place], [place], [address] , [place] - [facility] [place] 4 13:15:27 Lingual dysarthri a 925583637 Active 2023 LYNNE MEMBRENO PA-C [address], [place], [place], [address] , [place] - [facility] [place] 4 13:22:17 Dysarthri a 9433542 Active 2023 [address] WOODSC [address], [place], [address] , [place] [facility] [place] 4 13:23:12 Enlargeme nt of tongue 69208751 Active 2023 LYNNE MEMBRENO PA-C [address] [facility],[address] [facility], [facility] [place], [address] , [facility] - [facility] [place] 4 09:21:26 Congenita l macroglos lori 933471589 Active 2023 Rachell hernandez, [place] - [facility] [place] 4 11:50:46 Gastroeso phageal reflux disease without esophagit is 453300162 Active 2023 LYNNE MEMBRENO PA-C [address] [facility],[address], [facility] [place], [address] , [facility] - [facility] [place] 4 13:48:10 Problem Notes None recorded. Procedures Surgical History Date Name Laterality Status Provider Name and Address Organization Details Recorded Time 04/27/20 24 Fiberoptic Laryngoscopy (Comprehensive) completed LYNNE MEMBRENO PA-C [address] [facility],[place] [address], [place], [address], [facility] - [facility] [place] 04/27/2024 16:36:53 Imaging Results None recorded. Procedure Notes None recorded. Medical Equipment None Reported. Allergies Allergen ID Allergen Name Allergen Category Reaction Reaction Severity Criticality Documentation Date Start Date Code Code System Note Provider Name and Address Organization Details Recorded Time 75475 aspirin medicatio n Not available Not available Not available 03/13/2024 1191 RxNorm React ion: other react ion, ringi ng in ears; Not Available [facility] 4 01:00:50 83214 amoxicill in medicatio n other Not available Not available 03/13/2024 723 RxNorm React ion: unkno wn, unspe cifie d;; Not Available [facility] 4 01:00:51 59544 Keflex medicatio n other Not available Not available 03/13/202422550 7 RxNorm React ion: unkno wn, unspe cifie d;; Not Available [facility] 4 01:00:56 60229 acetamino phen / hydrocodo ne medicatio n other Not available Not available 03/13/202468057 2 RxNorm React ion: unkno wn, unspe cifie d;; Not Available [facility] 4 01:01:00 Medications Name Sig Start Date Stop Date Status Note LastModified by Organization Details LastModified Time losartan 50 mg tablet 05/18 completed Medicati on ID: [id number] D uration Value: 90 Brand Name: losartan [...] 24 hr 05/18 completed Medicati on ID: [id number] D uration Value: 30 Brand Name: oxybutyn [...] mg tablet 05/18 completed Medicati on ID: [id number] D uration Value: 90 Brand Name: ragini [...] spray,nhan pension 2020 active Medicati on ID: [id number] B rand Name: fluticas one propiona te [...] Updated DateTime 09/13/2024 152.4 cm 51.6 kg/m2 747861.39 g Kassandra Lagos [place] - [facility] 09/13/2024 13:18:31 Social History None recorded. Functional Status None recorded. Mental Status None recorded. Family History Nothing Reported. Medical History No medical history recorded. Gynecological HistoryNo gynecological history recorded. Obstetrics History GPAL:G 0 P 0 0 0 0 Past Encounters Encounter ID Performer Location Encounter Start Date Encounter Closed Date Diagnosis/Indication Diagnosis SNOMED-CT Code Diagnosis ICD10 Code Diagnosis Note [id number] HAYLEY BAEZA MD [facility] [address] [address] 09/13/2024 13:16:03 09/13/2024 14:08:39 Lingual dysarthria 134957509 R47.1 Dysphagia 09185978 R13.1 2 Gastroesop hageal reflux disease without esophagitis 097548698 K21.9 Health Concerns Section Related Observation LastModified by Organization Detai ls LastModified Time None Recorded Concern Status LastModified by Organization Details LastModified Time None Recorded Payers Encounter Date Sequence Insurance Name Policy Number Policy Scott Covered Member ID Scott Member ID Guarantor Name 09/13/2024 1 [place] [email or web address] Celina Marcelino [id number] Celina Marcelino 09/13/2024 2 [place] [facility] Celina Marcelino [id number] Celina Marcelino Notes Date Note Type Note [...] Back to smoking marijuana. HAYLEY BAEZA MD [address] [place] [address], [place], [address], [facility] - [facility] 09/13/2024 20:59:42 OBGyn Episode No OBEpisode recorded.
--- OUTSIDE RECORDS SUMMARY | 2024-11-08 11:46 | XMS_ITS | Data Portability ---
Author Organization [place] - [facility], Allergy Address [address] [address] Care Team Providers Care Mixer Whipped Topping Name Role Phone SUNITHA WHITE Primary Care [...] issues, recommend she re-establish with GI at [place] for evaluation and long-term management. Patient may return to the office as needed. Not available 09/13/2024 13:49:53 Plan of Treatment Reminders Order Date Submit Date Provider Last Modified By Organization Details Last Modified Time Details Appointments None recorde d. Lab unliste d lab - fungal surface swab (mansoor) 2023 024 ROHINI [facility], [address] [facility] [address], [place], [address], 10:13:35 microor ganism identif ication , unspeci fied specime n 2023 024 ROHINI [facility], [address], [place], [address], 4 10:13:36 Referral gastroe nterolo gist referra l - Referra l for dysphag ia and LPR. Ray banda Office preferr ed. Thank you. 2023 024 [email or web address] 2 [facility], [address], [place], [address], 12:25:38 speech therapy referra l - Referra l for speech therapy . Thanks! 2023 024 [email or web address] 2 Ly Segundo Ma, [address] [facility], [address], [place], [address], 4 12:25:59 gastroe nterolo gist referra l - Referra l for reflux. Thank you. 2023 024 [email or web address] 2 [facility], [address] [place] [address] [address], [place], [address], 4 09:50:48 speech therapy referra l - Good morning Erica. Patrick will need speech therapy . Thank you! 2023 024 2 Ly Segundo Ma, [address] [facility], [address], [place], [address], 4 09:51:50 Procedures None recorde d. Surgeries None recorde d. Imaging [place], modifie d barium swallow study 2023 024 [facility], [address], [place], [address], 4 10:20:10 [place], modifie d barium swallow study 2023 024 [email or web address] [facility], [address] [facility] [address], [place], [address], 4 10:20:53 [place], modifie d barium swallow study 2023 024 [email or web address] [facility] (Imaging), [address] [facility], [place], [address], 14:12:04 Medication Orders omepraz ole 20 mg capsule ,delaye d release 2023 024 [email or web address] [id number], [address] [place], [address], 10:57:42 loratad ine 10 mg tablet 2023 024 ROHINI [id number], [address] [facility], [place], [address], 15:19:45 Patient TargetsNo targets recorded. Patient Instructions Encounter Date Encounter Id Patient Instructions Last Modified By Organization Details Last Modified Time 04/27/2024 [id number] Reviewed with patient possibly multiple issues going [...] Not available 04/27/2024 16:41:09 Reason for Referral Outpatient Psychiatrist Referral for Dysphagia Referral for dysphagia and LPR. [place] [facility] preferred. Thank you. Referring Physician: Bri Rothman, Otolaryngology, Encounter Date: 05/25/2024 Referral for speech therapy. Thanks! Referring Physician: Bri Rothman Otolaryngology, Encounter Date: 05/25/2024 Outpatient Psychiatrist Referral for Gastroesophageal reflux disease without esophagitis [...] of this speci men. Not Available [facility] ([facility]) [address] [place], [address], 05/08/2024 10:13:35 04/27/2005/08/2024 FUNGA L SURFA CE SWAB (AMNSOOR ) sample description WOOD SKI MAKER Not Available [facility]) [address] [place], [address], 05/08/2024 10:13:35 04/27/20 24 05/08/2024 FUNGA L SURFA CE SWAB (MANSOOR ) total fungal count WOOD SKI MAKER Not Available [facility] ([facility]) [address] [place], [address], 05/08/2024 10:13:35 04/27/20 24 05/08/2024 FUNGA L SURFA CE SWAB (MANSOOR ) comment WOOD SKI MAKER Not Available [facility] ([facility]) [address] [place], [address], 05/08/2024 10:13:35 04/27/20 24 05/08/2024 FUNGA L SURFA CE SWAB (MANSOOR ) interpretati on WOOD SKI MAKER Not Available [facility] ([facility]) [address] [place], [address], 05/08/2024 10:13:35 04/27/20 24 04/30/2024 AEROB IC BACTE RIAL CULTU RE aerobic bacterial culture Final report Not Available [facility] ([facility]) [address] [place], [address], 05/08/2024 10:13:36 04/27/20 24 04/30/2024 AEROB IC BACTE RIAL CULTU RE result 1 Mixed skin jeannine Not Available [facility] ([facility]) [address] [facility], [place], [address], 05/08/2024 10:13:36 04/27/20 24 05/08/[address] PROBL EM request problem COMMEN T Testi ng not perfo rmed due to the age of this speci men. TEST: [id number] Funga l Surfa ce Swab (MANSOOR ) Not Available [facility] ([facility]) [address] [facility], [place], [address], 05/08/2024 10:13:37 06/19/20 24 12/10/2019 imagi ng/di [...] L CENTER Diagno stic Imagin g Depart [address] [address] ____ Sanchez t: COL FRANKIE ORTEGA D.O.B. /Age/S ex: 1974 - 48 - F Unit#: [id number] Locati on/Sta tus: SPREHS T/PRE CLI Accoun t#: [id number] Mnmarjan ic/Ord ering Site: [facility] Orderi ng Physic lorne: MAYITO VELASQUEZ PA-C ___ CR Barium Swallo w W Video - - 6088 Report Status :Love smith EXAMIN ATION: Modifi [...] Date/T martínez: 1109 Sign date/T martínez: 1115 [facility] (Central Scheduling Radiology) [address] [place], [address], 07/19/2024 16:45:30 10/11/20 24 10/10/2024 [place], modif ied lorna dumont study No observ ation record ed. Not Available 2023 15:04:12 10/16/20 24 10/10/2024 [place], modif ied lorna dumont study No observ ation record ed. [facility] (Imaging) [address] [place], [address], 10/16/2024 12:07:13 Result Notes None recorded. Problems Name Problem SNOMED Code Status Onset Date Resolution Date Notes Provider Name and Address Organization Details Recorded Time Disorder of smell 316581359 Active 2019 Other disturbanc es of smell and taste; Note: Date Diagnosed: 11/23/2019 11:56 AM (R43.8) Not Available [facility] 4 02:26:51 Disorder of taste 335384940 Active 2019 Other disturbanc es of smell and taste; Note: Date Diagnosed: 11/23/2019 11:56 AM (R43.8) [facility] 4 02:26:51 Allergic rhinitis 67164108 Active 2019 Allergic rhinitis: Due to other allergen; Note: Date Diagnosed: 12/24/2019 1:44 PM (477.8) Not Available [facility] 4 02:27:00 Obstructi ve sleep apnea syndrome 64008077 Active 2019 Obstructiv e sleep apnea (adult) (pediatric ); Note: Date Diagnosed: 11/23/2019 11:51 AM (G47.33) Not Available [facility] 4 02:27:14 Abnormal auditory perceptio n 00562568 Active 2019 Other abnormal auditory perception s, bilateral; Note: Date Diagnosed: 11/23/2019 11:57 AM (H93.293) Not Available [facility] 4 02:26:57 Asymmetri silvana sensorine ural hearing loss 001935955 Active 2019 Hearing loss: Sensorineu ral hearing loss, asymmetric al; Note: Date Diagnosed: 01/24/2020 2:36 PM (389.16) Not Available [facility] 4 02:27:10 Subjectiv e tinnitus 01620224 Active 2019 Subjective tinnitus; Note: Date Diagnosed: 01/24/2020 2:36 PM (388.31) Not Available [facility] 4 02:27:03 Nasal congestio n 93931108 Active 2019 Nasal congestion ; Note: Date Diagnosed: 11/23/2019 11:51 AM (R09.81) Not Available [facility] 4 02:27:16 Posterior rhinorrhe a 68141152 Active 2019 Postnasal drip; Note: Date Diagnosed: 11/23/2019 11:57 AM (R09.82) Not Available [facility] 4 02:26:49 Deviated nasal septum 847677917 Active 2019 Deviated nasal septum; Note: Date Diagnosed: 11/23/2019 11:57 AM (J34.2) Not Available [facility] 4 02:27:20 Dysphonia 28802458 Active 2019 Hoarseness ; Note: Date Diagnosed: 11/23/2019 11:51 AM (R49.0) Not Available [facility] 4 02:27:15 Sensorine ural hearing loss 81118438 Active 2019 Sensorineu ral hearing loss, unilateral , left ear, with unrestrict ed hearing on the contralate ral side; Note: Date Diagnosed: 12/10/2019 3:57 PM (H90.42) Not Available [facility] 4 02:27:02 Dysphagia 21273779 Active 2023 BRI ROTHMAN PA-C [address], [place], [address] , [place] - [facility] 4 15:15:08 Perennial allergic rhinitis 163375405 Active 2023 BRI ROTHMAN PA-C [address], [place], [address] , [place] - [facility] 4 15:18:54 Taste sense altered 004778098 Active 2023 TIEN WOODS-C [address], [place], [address] , [place] - [facility] 4 15:25:12 Laryngoph aryngeal reflux 489464467 Active [address]SC [address], [place], [address] , [place] - [facility] 4 13:15:27 Lingual dysarthri a 829969245 Active 2023 BRI ROTHMAN PA-C [address], [place], [address] , [place] [facility] 4 13:22:17 Dysarthri a 9288858 Active 2023 BRI ROTHMAN PA-C [address] [facility] [address], [place], [place], [address] , [place] - [facility] 4 13:23:12 Enlargeme nt of tongue 65093017 Active 2023 BRI ROTHMAN PA-C [address] [facility], [place], [place], [address] , [place] - [facility] 4 09:21:26 Congenita l macroglos lori 284999604 Active 2023 Rachell hernandez, [place] - [facility] 4 11:50:46 Gastroeso phageal reflux disease without esophagit is 915480525 Active 2023 BRI ROTHMAN PA-C [address] [facility], [place], [place], [address] , [place] - [facility] 4 13:48:10 Problem Notes None recorded. Procedures Surgical History Date Name Laterality Status Provider Name and Address Organization Details Recorded Time 04/27/20 24 Fiberoptic Laryngoscopy (Comprehensive) completed BRI ROTHMAN PA-C [address] [facility], [place], [address], [place] - [facility] 04/27/2024 16:36:53 Imaging Results Imaging Date Name Status LastModified by [facility] Details LastModified Time 12/10/2019 imaging/diagno stic result [...] not available 06/19/2024 12:32:11 07/17/2024 chestxr completed [facility] (Central Scheduling Radiology) [address] [place], [address], 07/19/2024 16:45:30 10/10/2024 [place], modified barium swallow study completed Information not available 10/12/2024 15:04:12 10/10/2024 [place], modified barium swallow study completed [facility] (Imaging) [address] [place], [address], 10/16/2024 12:07:13 Procedure Notes None recorded. Medical Equipment None Reported. Allergies Allergen ID Allergen Name Allergen Category Reaction Reaction Severity Criticality Documentation Date Start Date Code Code System Note Provider Name and Address Organization Details Recorded Time 43851 aspirin medicatio n Not available Not available Not available 03/13/2024 1191 RxNorm React ion: other react ion, ringi ng in ears; Not Available [facility] 4 01:00:50 31328 amoxicill in medicatio n other Not available Not available 03/13/2024 723 RxNorm React ion: unkno wn, unspe cifie d;; Not Available [facility] 4 01:00:51 67787 Keflex medicatio n other Not available Not available 03/13/202482257 7 RxNorm React ion: unkno wn, unspe cifie d;; Not Available [facility] 4 01:00:56 33462 acetamino phen / hydrocodo ne medicatio n other Not available Not available 03/13/2024 83468 2 RxNorm React ion: unkno wn, unspe cifie d;; Not Available [facility] 4 01:01:00 Medications Name Sig Start Date Stop Date Status Note LastModified by Organization Details LastModified Time losartan 50 mg tablet 05/18 completed Medicati on ID: [id number] D uration Value: 90 Brand Name: losartan [...] 24 hr 05/18 completed Medicati on ID: [id number] D uration Value: 30 Brand Name: oxybutyn [...] mg tablet 05/18 completed Medicati on ID: [id number] D uration Value: 90 Brand Name: ragini [...] ne propionat e 50 mcg/actua tion nasal spray,[facility] 2020 active Medicati on ID: [id number] B rand Name: fluticas one propiona te [...] Updated DateTime 05/25/2024 152.4 cm 51.6 kg/m2 708888.39 g Melissa Bal [facility] 05/25/2024 13:02:29 Date Recorded Body height Body mass index (BMI) Body weight Provider Name and Address Organization Details Last Updated DateTime 09/13/2024 152.4 cm 51.6 kg/m2 192598.39 g Kassandra Demond [facility] 09/13/2024 13:18:31 Social History None recorded. Functional Status None recorded. Mental Status None recorded. Family History Nothing Reported. Medical History No medical history recorded. Gynecological HistoryNo gynecological history recorded. Obstetrics History GPAL:G 0 P 0 0 0 0 Past Encounters Encounter ID Performer Location Encounter Start Date Encounter Closed Date Diagnosis/Indication Diagnosis SNOMED-CT Code Diagnosis ICD10 Code Diagnosis Note [id number] BRI ROTHMAN PA-C [facility] [address] [address] 04/27/2024 14:05:05 04/27/2024 15:23:02 Dysphagia 47855193 R13.10 Perennial allergic rhinitis 088378241 J30.89 Taste sense altered 2718 49737 R43.2 [id number] JOHNNY FAIR MD [facility] [address] [address] 05/25/2024 12:36:18 05/25/2024 13:24:46 Laryngopharyngeal reflux 569745979 K21.9 Dysphagia 58935952 R13.1 2 Dysarthria 2160080 R47.1 [id number] HAYLEY BAEZA MD [facility] [address] [address] 09/13/2024 13:16:03 09/13/2024 14:08:39 Lingual dysarthria 419649446 R47.1 Dysphagia 29969612 R13.1 2 Gastroesop hageal reflux disease without esophagitis 323865650 K21.9 Health Concerns Section Related Observation LastModified by Organization Detai ls LastModified Time None Recorded Concern Status LastModified by Organization Details LastModified Time None Recorded Advance Directives Directive None Recorded Payers Encounter Date Sequence Insurance Name Policy Number Policy Scott Covered Member ID Scott Member ID Guarantor Name 04/27/2024 1 [place]ARE B-[place]: [employer] [facility] Celina M Marcelino [id number] Celina Melvin Marcelino 04/27/2024 2 [place] [facility] Celina M Marcelino [id number] Celina Olegario [place] 05/25/2024 1 [place] [facility] [employer] [facility] Celina Olegario Marcelino [id number] Celina [facility] 05/25/2024 2 [place] [facility] Celina Olegario Marcelino [id number] Celina [place] 09/13/2024 1 [place]ARE B[place] [employer] [facility] Celina M Marcelino [id number] Celina [facility] 09/13/2024 2 [place] [facility] Celina M Marcelino [id number] Celina Olegario Marcelino Notes Date Note Type Note Provider [...] allergic rhinitis and recently moved [facility] to the [facility]. BRI ROTHMAN PA-C [address] [facility],[address], [address], [facility] - [facility] 04/27/2024 16:41:39 05/25/2024 text/html 48 year female [...] hoarseness, hemoptysis, fevers. JOHNNY CRISOSTOMO MD [address] [facility],[place] [address], [place], [address], [place] - [facility] 05/25/2024 16:19:01 09/13/2024 text/html 49 year old [...] Back to smoking marijuana. HAYLEY BAEZA MD [address] [place] [address], [place], [address], [place] - [facility] 09/13/2024 20:59:42 OBGyn Episode No OBEpisode recorded.
== END 2024-11-08 12:36 | disposition home or self-care (01) ==
PROVIDERS: PCP Internal Medicine; Visit Provider Internal Medicine Gastroenterology
DX: K76.0 Fatty (change of) liver, not elsewhere classified (principal); K58.2 Mixed irritable bowel syndrome; Z80.0 Family history of malignant neoplasm of digestive organs
CPT/HCPCS: 99214

== ENCOUNTER 2024-11-16 08:34 | Outpatient (REF) | payer MEDICARE, SELFPAY ==
--- NOTE | ~2024-11-16 | XR_ITS ---
EXAMINATION: XR KNEE 1-2 VIEWS LEFT, XR KNEE 1 VIEW RIGHT HISTORY: M25.569 - Pain in unspecified knee COMPARISON: Comparison is made with the prior examination of the knees dated 11/01/2024. FINDINGS: Standing AP views of the bilateral knees and an additional sunrise patellar view of the left knee are submitted. Osseous mineralization is normal. There is no fracture or dislocation. There is severe narrowing of the medial compartment of the right knee and mild to moderate narrowing of the medial compartment of the left knee. There is mild narrowing of the patellofemoral compartment of the left knee. The soft tissues are unremarkable. XR/XR knee RT 1V IMPRESSION: Osteoarthritis of the bilateral knees as described. Electronically signed by: Lauro Barahona MD 11/20/2024 08:09 AM JESSICA
--- NOTE | ~2024-11-16 | XR_ITS ---
EXAMINATION: XR KNEE 1-2 VIEWS LEFT, XR KNEE 1 VIEW RIGHT HISTORY: M25.569 - Pain in unspecified knee COMPARISON: Comparison is made with the prior examination of the knees dated 11/01/2024. FINDINGS: Standing AP views of the bilateral knees and an additional sunrise patellar view of the left knee are submitted. Osseous mineralization is normal. There is no fracture or dislocation. There is severe narrowing of the medial compartment of the right knee and mild to moderate narrowing of the medial compartment of the left knee. There is mild narrowing of the patellofemoral compartment of the left knee. The soft tissues are unremarkable. XR/XR knee LT 2V IMPRESSION: Osteoarthritis of the bilateral knees as described. Electronically signed by: Lauro Barahona MD 11/20/2024 08:09 AM JESSICA
--- OUTSIDE RECORDS SUMMARY | 2024-11-19 08:41 | XMS_ITS | Data Portability ---
Author Organization [place] - [facility], Allergy Address [address] [address] Care Team Providers [facility] Cleaning Specialist Name Role Phone SUNITHA WHITE Primary Care [...] issues, recommend she re-establish with GI at [facility] for evaluation and long-term management. Patient may return to the office as needed. Not available 09/13/2024 13:49:53 Plan of Treatment Reminders Order Date Submit Date Provider Last Modified By Organization Details Last Modified Time Details Appointments None recorde d. Lab unliste d lab - fungal surface swab (mansoor) 2023 024 ROHINI [facility], [address] [facility] [address], [place], [address], 10:13:35 microor ganism identif ication , unspeci fied specime n 2023 024 ROHINI [facility], [address], [place], [address], 4 10:13:36 Referral gastroe nterolo gist referra l - Referra l for dysphag ia and LPR. Ray banda Office preferr ed. Thank you. 2023 024 [email or web address] 2 [facility] Gastroenterology Scheduling Department, [address], [place], [address], 12:25:38 speech therapy referra l - Referra l for speech therapy . Thanks! 2023 024 [email or web address] 2 [place], [address] [facility], [address], [place], [address], 4 12:25:59 gastroe nterolo gist referra l - Referra l for reflux. Thank you. 2023 024 2 [facility], [address] [place] [address] [address], [place], [address], 4 09:50:48 speech therapy referra l - Good morning Erica. Patrick will need speech therapy . Thank you! 2023 024 [email or web address] 2 [place], [address] [facility], [address], [place], [address], 4 09:51:50 Procedures None recorde d. Surgeries None recorde d. Imaging [place], modifie d barium swallow study 2023 024 [email or web address] [facility], [address], [place], [address], 4 10:20:10 [place], modifie d barium swallow study 2023 024 [facility], [address], [place], [address], 4 10:20:53 [place], modifie d barium swallow study 2023 024 [email or web address] [facility] (Imaging), [address] [facility], [place], [address], 14:12:04 Medication Orders omepraz ole 20 mg capsule ,delaye d release 2023 024 [email or web address] [facility], [address] [place], [address], 10:57:42 loratad ine 10 mg tablet 2023 024 ROHINI [facility], [address] [facility], [place], [address], 15:19:45 Patient TargetsNo targets recorded. Patient Instructions Encounter Date Encounter Id Patient Instructions Last Modified By Organization Details Last Modified Time 04/27/2024 [id number] Reviewed with patient possibly multiple issues going [...] Not available 04/27/2024 16:41:09 Reason for Referral Wool Washer Feeder Referral for Dysphagia Referral for dysphagia and LPR. [place] Office preferred. Thank you. Referring Physician: Bri Rothman, Otolaryngology, Encounter Date: 05/25/2024 Referral for speech therapy. Thanks! Referring Physician: Bri Rothman Otolaryngology, Encounter Date: 05/25/2024 Wool Washer Feeder Referral for Gastroesophageal reflux disease without esophagitis [...] [facility] ([facility]) [address] [place], [address], 05/08/2024 10:13:35 04/27/2005/08/2024 FUNGA L SURFA CE SWAB (MANSOOR ) sample description MEDIA MANAGER Not Available [facility]) [address] [place], [address], 05/08/2024 10:13:35 04/27/20 24 05/08/2024 FUNGA L SURFA CE SWAB (MANSOOR ) total fungal count MEDIA MANAGER Not Available [facility] ([facility]) [address] [place], [address], 05/08/2024 10:13:35 04/27/20 24 05/08/2024 FUNGA L SURFA CE SWAB (MANSOOR ) comment MEDIA MANAGER Not Available [facility] ([facility]) [address] [place], [address], 05/08/2024 10:13:35 04/27/20 24 05/08/2024 FUNGA L SURFA CE SWAB (MANSOOR ) interpretati on MEDIA MANAGER Not Available [facility] ([facility]) [address] [place], [address], 05/08/2024 10:13:35 04/27/20 24 04/30/2024 AEROB IC BACTE RIAL CULTU RE aerobic bacterial culture Final report Not Available [facility] ([facility]) [address] [place], [address], 05/08/2024 10:13:36 04/27/20 24 04/30/2024 AEROB IC BACTE RIAL CULTU RE result 1 Mixed skin jeannine Not Available [facility] ([facility]) [address] [facility], [place], [address], 05/08/2024 10:13:36 04/27/20 24 05/08/[address] PROBL EM request problem COMMEN T Testi ng not perfo rmed due to the age of this speci men. TEST: [id number] Funga l Surfa ce Swab (MANSOOR ) Not Available [facility] ([facility]) [address] [facility], [place], [address], 05/08/2024 10:13:37 06/19/20 24 12/10/2019 imagi ng/di [...] CENTER Diagno stic Imagin g Depart [address] [address] ____ Sanchez t: COL FRANKIE ORTEGA D.O.B. /Age/S ex: 1974 - 48 - F Unit#: [id number] Locati on/Sta tus: SPREHS T/PRE CLI Accoun t#: [id number] Mnmarjan ic/Ord ering Site: [facility]S PDI Orderi ng Physic lorne: MAYITO VELASQUEZ PA-C ___ CR Barium Swallo w W Video - - [id number] Report Status :Love smith EXAMIN ATION: Modifi [...] Date/T martínez: 1109 Sign date/T martínez: 1115 [facility] (Central Scheduling Radiology) [address] [place], [address], 07/19/2024 16:45:30 10/11/20 24 10/10/2024 [place], modif ied lorna dumont study No observ ation record ed. Not Available 2023 15:04:12 10/16/20 24 10/10/2024 [place], modif ied lorna dumont study No observ ation record ed. [facility] (Imaging) [address] [place], [address], 10/16/2024 12:07:13 Result Notes None recorded. Problems Name Problem SNOMED Code Status Onset Date Resolution Date Notes Provider Name and Address Organization Details Recorded Time Disorder of smell 761174118 Active 2019 Other disturbanc es of smell and taste; Note: Date Diagnosed: 11/23/2019 11:56 AM (R43.8) Not Available [facility] 4 02:26:51 Disorder of taste 007380877 Active 2019 Other disturbanc es of smell and taste; Note: Date Diagnosed: 11/23/2019 11:56 AM (R43.8) Not Available [facility] 4 02:26:51 Allergic rhinitis 04098668 Active 2019 Allergic rhinitis: Due to other allergen; Note: Date Diagnosed: 12/24/2019 1:44 PM (477.8) Not Available [facility] 4 02:27:00 Obstructi ve sleep apnea syndrome 60606401 Active 2019 Obstructiv e sleep apnea (adult) (pediatric ); Note: Date Diagnosed: 11/23/2019 11:51 AM (G47.33) Not Available [facility] 4 02:27:14 Abnormal auditory perceptio n 44188393 Active 2019 Other abnormal auditory perception s, bilateral; Note: Date Diagnosed: 11/23/2019 11:57 AM (H93.293) Not Available [facility] 4 02:26:57 Asymmetri silvana sensorine ural hearing loss 895299981 Active 2019 Hearing loss: Sensorineu ral hearing loss, asymmetric al; Note: Date Diagnosed: 01/24/2020 2:36 PM (389.16) Not Available [facility] 4 02:27:10 Subjectiv e tinnitus 80221786 Active 2019 Subjective tinnitus; Note: Date Diagnosed: 01/24/2020 2:36 PM (388.31) Not Available [facility] 4 02:27:03 Nasal congestio n 00459920 Active 2019 Nasal congestion ; Note: Date Diagnosed: 11/23/2019 11:51 AM (R09.81) Not Available [facility] 4 02:27:16 Posterior rhinorrhe a 12775229 Active 2019 Postnasal drip; Note: Date Diagnosed: 11/23/2019 11:57 AM (R09.82) Not Available On license of [facility] 4 02:26:49 Deviated nasal septum 113893535 Active 2019 Deviated nasal septum; Note: Date Diagnosed: 11/23/2019 11:57 AM (J34.2) Not Available On license of [facility] 4 02:27:20 Dysphonia 04447515 Active 2019 Hoarseness ; Note: Date Diagnosed: 11/23/2019 11:51 AM (R49.0) Not Available On license [facility] 4 02:27:15 Sensorine ural hearing loss 80183663 Active 2019 Sensorineu ral hearing loss, unilateral , left ear, with unrestrict ed hearing on the contralate ral side; Note: Date Diagnosed: 12/10/2019 3:57 PM (H90.42) Not Available On license of [facility] 4 02:27:02 Dysphagia 99657278 Active 2023 BRI ROTHMAN PA-C [address], [place], [address] , [place] - [facility] 4 15:15:08 Perennial allergic rhinitis 726408277 Active 2023 BRI ROTHMAN PA-C [address], [place], [address] , [place] - [facility] [place] 4 15:18:54 Taste sense altered 083710603 Active 2023 TIEN WOODS-C [address], [place], [address] , [place] - [facility] [place] 4 15:25:12 Laryngoph aryngeal reflux 818288641 Active [address], [place], [address] , [place] [facility] [place] [facility] 4 13:15:27 Lingual dysarthri a 853410721 Active 2023 BRI ROTHMAN PA-C [address], [place], [address] , [place] [facility] 4 13:22:17 Dysarthri a 8561803 Active 2023 BRI ROTHMAN PA-C [address] [facility] [address], [place], [place], [address] , [place] - [facility] [place] [facility] 4 13:23:12 Enlargeme nt of tongue 80922621 Active 2023 BRI ROTHMAN PA-C [address] [facility], [place], [place], [address] , [place] - [facility] 4 09:21:26 Congenita l macroglos lori 133116073 Active 2023 Rachell hernandez, [place] - [facility] [place] [facility] 4 11:50:46 Gastroeso phageal reflux disease without esophagit is 734885991 Active 2023 BRI ROTHMAN PA-C [address] [facility], [place], [place], [address] , [place] - [facility] 4 13:48:10 Problem Notes None recorded. Procedures Surgical History Date Name Laterality Status Provider Name and Address Organization Details Recorded Time 04/27/20 24 Fiberoptic Laryngoscopy (Comprehensive) completed BRI ROTHMAN PA-C [address] [facility], [place], [address], [place] - [facility] [place] [facility] 04/27/2024 16:36:53 Imaging Results Imaging Date Name Status LastModified by Organiz [facility] Details LastModified Time 12/10/2019 imaging/diagno stic [...] not available 06/19/2024 12:32:11 07/17/2024 chestxr completed [facility] (Central Scheduling Radiology) [address] [place], [address], 07/19/2024 16:45:30 10/10/2024 [place], modified barium swallow study completed Information not available 10/12/2024 15:04:12 10/10/2024 [place], modified barium swallow study completed [facility] (Imaging) [address] [place], [address], 10/16/2024 12:07:13 Procedure Notes None recorded. Medical Equipment None Reported. Allergies Allergen ID Allergen Name Allergen Category Reaction Reaction Severity Criticality Documentation Date Start Date Code Code System Note Provider Name and Address Organization Details Recorded Time 16258 aspirin medicatio n Not available Not available Not available 03/13/2024 1191 RxNorm React ion: other react ion, ringi ng in ears; Not Available On license of [facility] 4 01:00:50 14272 amoxicill in medicatio n other Not available Not available 03/13/2024 723 RxNorm React ion: unkno wn, unspe cifie d;; Not Available On license of [facility] 4 01:00:51 83952 Keflex medicatio n other Not available Not available 03/13/202459957 7 RxNorm React ion: unkno wn, unspe cifie d;; Not Available [facility] 4 01:00:56 42819 acetamino phen / hydrocodo ne medicatio n other Not available Not available 03/13/2024 18285 2 RxNorm React ion: unkno wn, unspe cifie d;; Not Available [facility] 4 01:01:00 Medications Name Sig Start Date Stop Date Status Note LastModified by Organization Details LastModified Time losartan 50 mg tablet 05/18 completed Medicati on ID: [id number] D uration Value: 90 Brand Name: losartan [...] 24 hr 05/18 completed Medicati on ID: [id number] D uration Value: 30 Brand Name: oxybutyn [...] mg tablet 05/18 completed Medicati on ID: 113120 D uration Value: 90 Brand Name: ragini [...] ne propionat e 50 mcg/actua tion nasal spray,[facility] 2020 active Medicati on ID: 132783 B rand Name: fluticas one propiona te [...] Updated DateTime 05/25/2024 152.4 cm 51.6 kg/m2 066212.39 g Melissa Bal [facility] 05/25/2024 13:02:29 Date Recorded Body height Body mass index (BMI) Body weight Provider Name and Address Organization Details Last Updated DateTime 09/13/2024 152.4 cm 51.6 kg/m2 445107.39 g Kassandra Demond [facility] 09/13/2024 13:18:31 Social History None recorded. Functional [...] Note [id number] BRI ROTHMAN PA-C [facility] [address] [address] 04/27/2024 14:05:05 04/27/2024 15:23:02 Dysphagia 72442260 R13.10 Perennial allergic rhinitis 972272814 J30.89 Taste sense altered 2718 34224 R43.2 [id number] JOHNNY FAIR MD [facility] [address] [address] 05/25/2024 12:36:18 05/25/2024 13:24:46 Laryngopharyngeal reflux 330939144 K21.9 Dysphagia 66227129 R13.1 2 Dysarthria 0224947 R47.1 14055 HAYLEY BAEAZ MD [facility] [address] [address] 09/13/2024 13:16:03 09/13/2024 14:08:39 Lingual dysarthria 952891422 R47.1 Dysphagia 42342823 R13.1 2 Gastroesop hageal reflux disease without esophagitis 801766947 K21.9 Health Concerns Section Related Observation LastModified by Organization Detai ls LastModified Time None Recorded Concern Status LastModified by Organization Details LastModified Time None Recorded Advance Directives Directive None Recorded Payers Encounter Date Sequence Insurance Name Policy Number Policy Scott Covered Member ID Scott Member ID Guarantor Name 04/27/2024 1 [place] [employer] [facility] Celina M Marcelino [id number] Celina Melvin Marcelino 04/27/2024 2 [place] [facility] Celina M Marcelino [id number] Celina Olegario [place] 05/25/2024 1 [place] [facility] [employer] [facility] Celina Olegario Marcelino [id number] Celina [facility] 05/25/2024 2 [place] [facility] Celina Olegario Marcelino [id number] Celina [place] 09/13/2024 1 [place] [employer] [facility] Celina M Marcelino [id number] Celina [facility] 09/13/2024 2 [place] [facility] Celina M Marcelino [id number] Celina Olegario Marcelino Notes Date Note Type [...] allergic rhinitis and recently moved from the [facility] to the [facility]. BRI ROTHMAN PA-C 100 [facility],[address], [address], [facility] 04/27/2024 16:41:39 05/25/2024 text/html 48 year [...] hoarseness, hemoptysis, fevers. JOHNNY CRISOSTOMO MD 100 [facility],[place] [address], [place], [address], [place] - [facility] 05/25/2024 16:19:01 09/13/2024 text/html 49 year [...] Back to smoking marijuana. HAYLEY BAEZA MD [address] [place] [address], [place], [address], [place] [facility] 09/13/2024 20:59:42 OBGyn Episode No OBEpisode recorded.
--- OUTSIDE RECORDS SUMMARY | 2024-11-19 08:42 | XMS_ITS | Continuity of Care Document ---
Author Organization [place] - [facility] Formerly [facility], [facility] Address [address] [place] [id number] Care Team Providers Care Packaging Coordinator Name Role Phone SUNITHA WHITE Primary Care [...] issues, recommend she re-establish with GI at [facility] for evaluation and long-term management. Patient may return to the office as needed. Not available 09/13/2024 13:49:53 Plan of Treatment Reminders Order Date Submit Date Provider Last Modified By Organization Details Last Modified Time Details Appointments None recorde d. Lab None recorde d. Referral gastroe nterolo gist referra l - Referra l for reflux. Thank you. 2023 024 [email or web address] 2 [facility], [address] [address] Dr, 3rd Fl, [place], [address], 4 09:50:48 speech therapy referra l - Good morning Erica. Patrick will need speech therapy . Thank you! 2023 024 [email or web address] 2 Ly Seg[place], [address], [address], [place], [address], 4 09:51:50 Procedures None recorde d. Surgeries None recorde d. Imaging [place], modifie d barium swallow study 2023 024 [email or web address] [facility] (Imaging), [address] [place] [address], [address], 4 14:12:04 Medication Orders None recorde d. Patient TargetsNo targets recorded. Patient InstructionsNo instructions recorded. 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 BARCODE [facility] (Imaging) [address] [place], [address], 10/16/2024 12:07:13 Result Notes None recorded. Problems Name Problem SNOMED Code Status Onset Date Resolution Date Notes Provider Name and Address Organization Details Recorded Time Disorder of smell 368603390 Active 2019 Other disturbanc es of smell and taste; Note: Date Diagnosed: 11/23/2019 11:56 AM (R43.8) Not Available [facility] 4 02:26:51 Disorder of taste 105132756 Active 2019 Other disturbanc es of smell and taste; Note: Date Diagnosed: 11/23/2019 11:56 AM (R43.8) Not Available [facility] 4 02:26:51 Allergic rhinitis 85083305 Active 2019 Allergic rhinitis: Due to other allergen; Note: Date Diagnosed: 12/24/2019 1:44 PM (477.8) Not Available [facility] 4 02:27:00 Obstructi ve sleep apnea syndrome 94980062 Active 2019 Obstructiv e sleep apnea (adult) (pediatric ); Note: Date Diagnosed: 11/23/2019 11:51 AM (G47.33) Not Available [facility] 4 02:27:14 Abnormal auditory perceptio n 31485908 Active 2019 Other abnormal auditory perception s, bilateral; Note: Date Diagnosed: 11/23/2019 11:57 AM (H93.293) Not Available [facility] 4 02:26:57 Asymmetri silvana sensorine ural hearing loss 418614416 Active 2019 Hearing loss: Sensorineu ral hearing loss, asymmetric al; Note: Date Diagnosed: 01/24/2020 2:36 PM (389.16) Not Available [facility] 4 02:27:10 Subjectiv e tinnitus 17111330 Active 2019 Subjective tinnitus; Note: Date Diagnosed: 01/24/2020 2:36 PM (388.31) Not Available [facility] 4 02:27:03 Nasal congestio n 27125321 Active 2019 Nasal congestion ; Note: Date Diagnosed: 11/23/2019 11:51 AM (R09.81) Not Available [facility] 4 02:27:16 Posterior rhinorrhe a 59002575 Active 2019 Postnasal drip; Note: Date Diagnosed: 11/23/2019 11:57 AM (R09.82) Not Available [facility] 4 02:26:49 Deviated nasal septum 041412064 Active 2019 Deviated nasal septum; Note: Date Diagnosed: 11/23/2019 11:57 AM (J34.2) Not Available [facility] 4 02:27:20 Dysphonia 55225267 Active 2019 Hoarseness ; Note: Date Diagnosed: 11/23/2019 11:51 AM (R49.0) Not Available [facility] 4 02:27:15 Sensorine ural hearing loss 29228773 Active 2019 Sensorineu ral hearing loss, unilateral , left ear, with unrestrict ed hearing on the contralate ral side; Note: Date Diagnosed: 12/10/2019 3:57 PM (H90.42) Not Available [facility] 4 02:27:02 Dysphagia 45597479 Active 2023 LYNNE MEMBRENO PA-C [address], [place], [place], [address] , [place] - [facility] 4 15:15:08 Perennial allergic rhinitis 542260829 Active 2023 LYNNE MEMBRENO PA-C [address], [place], [place], [address] , [place] - [facility] 4 15:18:54 Taste sense altered 602974057 Active [address] WO[address]SC [address], [place], [place], [address] , [place] - [facility] 4 15:25:12 Laryngoph aryngeal reflux 858343242 Active 2023 LYNNE MEMBRENO PA-C [address], [place], [place], [address] , [place] - [facility] 4 13:15:27 Lingual dysarthri a 467888597 Active 2023 LYNNE MEMBRENO PA-C [address], [place], [place], [address] , [place] - [facility] 4 13:22:17 Dysarthri a 5987960 Active 2023 [address] WOODSC [address], [place], [address] , [place] [facility] 4 13:23:12 Enlargeme nt of tongue 00981226 Active 2023 LYNNE MEMBRENO PA-C [address] [facility],[address] [facility], [place], [address] , [facility] - [facility] 4 09:21:26 Congenita l macroglos lori 204987915 Active 2023 Rachell hernandez, [place] - [facility] 4 11:50:46 Gastroeso phageal reflux disease without esophagit is 741720812 Active 2023 LYNNE MEMBRENO PA-C [address] [facility],[address], [place], [address] , [facility] - [facility] 4 13:48:10 Problem Notes None recorded. Procedures Surgical History Date Name Laterality Status Provider Name and Address Organization Details Recorded Time 04/27/20 24 Fiberoptic Laryngoscopy (Comprehensive) completed LYNNE MEMBRENO PA-C [address] [facility],[place] [address], [place], [address], [facility] - [facility] 04/27/2024 16:36:53 Imaging Results None recorded. Procedure Notes None recorded. Medical Equipment None Reported. Allergies Allergen ID Allergen Name Allergen Category Reaction Reaction Severity Criticality Documentation Date Start Date Code Code System Note Provider Name and Address Organization Details Recorded Time 59462 aspirin medicatio n Not available Not available Not available 03/13/2024 1191 RxNorm React ion: other react ion, ringi ng in ears; Not Available [facility] 4 01:00:50 38438 amoxicill in medicatio n other Not available Not available 03/13/2024 723 RxNorm React ion: unkno wn, unspe cifie d;; Not Available [facility] 4 01:00:51 19770 Keflex medicatio n other Not available Not available 03/13/202492281 7 RxNorm React ion: unkno wn, unspe cifie d;; Not Available [facility] 4 01:00:56 25199 acetamino phen / hydrocodo ne medicatio n other Not available Not available 03/13/202432269 2 RxNorm React ion: unkno wn, unspe cifie d;; Not Available [facility] 4 01:01:00 Medications Name Sig Start Date Stop Date Status Note LastModified by Organization Details LastModified Time losartan 50 mg tablet 05/18 completed Medicati on ID: [id number] D uration Value: 90 Brand Name: losartan [...] 24 hr 05/18 completed Medicati on ID: [id number] D uration Value: 30 Brand Name: oxybutyn [...] mg tablet 05/18 completed Medicati on ID: [id number] D uration Value: 90 Brand Name: ragini [...] spray,nhan pension 2020 active Medicati on ID: [id number] B rand Name: fluticas one propiona te [...] Updated DateTime 09/13/2024 152.4 cm 51.6 kg/m2 132749.39 g Kassandra Lagos [place] - [facility] 09/13/2024 13:18:31 Social History None recorded. Functional Status None recorded. Mental Status None recorded. Family History Nothing Reported. Medical History No medical history recorded. Gynecological HistoryNo gynecological history recorded. Obstetrics History GPAL:G 0 P 0 0 0 0 Past Encounters Encounter ID Performer Location Encounter Start Date Encounter Closed Date Diagnosis/Indication Diagnosis SNOMED-CT Code Diagnosis ICD10 Code Diagnosis Note [id number] HAYLEY BAEZA MD [facility] [address] [address] 09/13/2024 13:16:03 09/13/2024 14:08:39 Lingual dysarthria 467250733 R47.1 Dysphagia 25984921 R13.1 2 Gastroesop hageal reflux disease without esophagitis 949565856 K21.9 Health Concerns Section Related Observation LastModified by Organization Detai ls LastModified Time None Recorded Concern Status LastModified by Organization Details LastModified Time None Recorded Payers Encounter Date Sequence Insurance Name Policy Number Policy Scott Covered Member ID Scott Member ID Guarantor Name 09/13/2024 1 [place] [email or web address] Celina Marcelino [id number] Celina Marcelino 09/13/2024 2 [place] [facility] Celina Marcelino [id number] Celina Marcelino Notes Date Note Type Note [...] Back to smoking marijuana. HAYLEY BAEZA MD [address] [place] [address], [place], [address], [facility] - [facility] 09/13/2024 20:59:42 OBGyn Episode No OBEpisode recorded.
== END 2024-11-16 08:35 | disposition home or self-care (01) ==
LOC: HO.HOSX 08:34
PROVIDERS: Visit Provider Physician Assistant
DX: M25.561 Pain in right knee (principal); M25.562 Pain in left knee; M17.12 Unilateral primary osteoarthritis, left knee
CPT/HCPCS: 73560; 99212

== ENCOUNTER 2024-11-16 09:19 | Outpatient (AMB) | payer MEDICARE, SELFPAY ==
--- NOTE | 2024-11-16 09:37 | MHC.OFFVIS ---
Vital Signs 11/16/24 09:44 Height 5 ft Weight 274 lb BMI 53.5 Handedness Left Intake Visit Reasons: OV-New problem -Left knee pain Intake Note: Celina is a 49 year old female who presents today for a evaluation of her left knee pain. Hx of right knee OA. Patient reports ongoing pain for about a month. She mentions that her pain has been getting worse and not being able sleep. Her pain is on the medial aspect of the knee. She reports that her pain is worse when she is stating and using the stairs. Patient states that she went to ED on the 11/01/24 and she was prescribed 5MG of oxycodone which gives her relief. Allergies cephalexin Allergy (Severe, Verified 11/16/24 09:43) hives hydrocodone [From Vicodin] Allergy (Severe, Verified 11/16/24 09:43) Hives aspirin [From Nixon Aspirin] Allergy (Mild, Verified 11/16/24 09:43) Eye Swelling Penicillins Allergy (Verified 11/16/24 09:43) Unknown meloxicam Adverse Reaction (Verified 11/16/24 09:43) Swelling HPI HPI OV-New problem -Left knee pain: Details: Ms. Marcelino is a 49-year-old female who presents today for a evaluation of her left knee pain. Patient reports ongoing pain for about a month after she was dancing and went into a low squat. She mentions that her pain has been progressively getting worse. Her pain is on the medial aspect of the knee and along the patella. She reports that her pain is worse when using the stairs. Patient states that she went to ED on the 11/01/24 and she was prescribed 5MG of oxycodone which gives her relief. She has also tried topical diclofenac with no relief. She has also tried hot/cold with no relief. [facility] Medical History Acute recurrent sinusitis Incisional hernia PTSD (post-traumatic stress disorder) Bipolar disorder Acute medial meniscus tear of right knee Refused influenza vaccine Pain in right foot Uterine fibroid Surgical menopause Vitamin D deficiency Ascending aortic aneurysm Morbid obesity Obstructive sleep apnea on CPAP Urinary, incontinence, stress female Restless leg syndrome Essential hypertension Surgical History Hx of cholecystectomy History of cervical spinal surgery History of section History of partial hysterectomy History of tubal ligation Family History Father Heart disease Substance use disorder Mental health disorder Mother Alive and well Substance use disorder Mental health disorder Sister Mental health disorder Son Mental health disorder Daughter No problems noted. Social History Housing: House Alcohol intake: current Alcohol intake frequency: holidays/special occasions only Alcohol type: wine and hard liquor Patient Tobacco Use Status: Former Tobacco user e-Cigarette/Vaping Use: Never Used Substance Use Type: Marijuana Advance Directives Date on File: 02/08/24 service: No Current occupational status: disabled Cognitive needs: No Hearing needs: No Vision needs: No Review of Systems Const All systems reviewed & are unremarkable except as noted in HPI and below Physical Exam Vital Signs: BMI result Body Mass Index 53.5 Const General: cooperative, healthy appearing and no acute distress Resp Effort & Inspection: normal respiratory effort and able to speak in complete sentences Cardio Peripheral pulses: Peripheral pulses 2+ throughout Skin Lesions: no lesions Rashes: no rashes Extrem Other: Left knee: Normal to inspection. No ecchymosis, erythema, or joint effusion. Tenderness to palpation along the medial joint line and medial border of the patella. Full knee extension and flexion with pain. NVI. Assessment & Plan Assessment & Plan (1) Patellofemoral arthritis of left knee: Code(s): M17.12 - Unilateral primary osteoarthritis, left knee Category: Medical Plan Ms. Marcelino is a 49-year-old female who presents today for a evaluation of her left knee pain. Patient reports ongoing pain for about a month after she was dancing and went into a low squat. She mentions that her pain has been progressively getting worse. Her pain is on the medial aspect of the knee and along the patella. She reports that her pain is worse when using the stairs. Patient states that she went to ED on the 11/01/24 and she was prescribed 5MG of oxycodone which gives her relief. She has also tried topical diclofenac with no relief. She has also tried hot/cold with no relief. I discussed with Physical therapy with the patient in which she is amenable to attend. She would like to attend an outside facility therefore a prescription was printed for the patient. I have also recommended a topical pain cream as well. I discussed the role of cortisone injection however the patient has declined at this time. I also discussed the role of knee bracing however the patient has declined at this time stating that knee bracing does not her body habitus properly for the left lower extremity and often falls down. She did request a refill of oxycodone which I have declined to fill out this time. Patient will follow-up p.r.n., sooner if needed. X-rays obtained in the office of the left knee were reviewed by me and reveal osteoarthritis left knee. No acute fracture or dislocation. Orders: Orders XR knee LT 2V Today M25.569 - Pain in unspecified knee XR knee RT 1V Today M25.569 - Pain in unspecified knee PT Evaluation and Treatment Today M17.12 - Unilateral primary osteoarthritis, left knee Coding Level of Care Code Est Pt Level 3 (94816) Diagnoses Patellofemoral arthritis of left knee M17.12
[2024-11-16 09:44] VITALS: BMI 53.5
--- OUTSIDE RECORDS SUMMARY | 2024-11-16 10:08 | XMS_ITS | Data Portability ---
Author Organization [place] [facility], Allergy Address [address] [address] Care Team Providers Care Health Systems Analyst Name Role Phone SUNITHA WHITE Primary Care [...] recommend she re-establish with GI at [place] for evaluation and long-term management. Patient may return to the office as needed. Not available 09/13/2024 13:49:53 Plan of Treatment Reminders Order Date Submit Date Provider Last Modified By Organization Details Last Modified Time Details Appointments None recorde d. Lab unliste d lab - fungal surface swab (mansoor) 2023 024 ROHINI [facility], [address] [facility] [address], [place], [address], 10:13:35 microor ganism identif ication , unspeci fied specime n 2023 024 ROHINI [facility], [address], [place], [address], 4 10:13:36 Referral gastroe nterolo gist referra l - Referra l for dysphag ia and LPR. Ray banda Office preferr ed. Thank you. 2023 024 [email or web address] 2 [facility], [address], [place], [address], 12:25:38 speech therapy referra l - Referra l for speech therapy . Thanks! 2023 024 [email or web address] 2 [place], [address] [facility], [place], [address], 4 12:25:59 gastroe nterolo gist referra l - Referra l for reflux. Thank you. 2023 024 2 [facility], [address] [place] [address] [address], [place], [address], 4 09:50:48 speech therapy referra l - Good morning Erica. Patrick will need speech therapy . Thank you! 2023 024 [email or web address] 2 [place], [address] [facility], [address], [place], [address], 4 09:51:50 Procedures None recorde d. Surgeries None recorde d. Imaging [place], modifie d barium swallow study 2023 024 [email or web address] [facility], [address], [place], [address], 4 10:20:10 [place], modifie d barium swallow study 2023 024 [email or web address] [facility], [address] [facility], [place], [address], 4 10:20:53 [place], modifie d barium swallow study 2023 024 [id number] [facility] (Imaging), [address] [facility], [place], [address], 14:12:04 Medication Orders omepraz ole 20 mg capsule ,delaye d release 2023 024 [id number] [id number], [address] [place], [address], 10:57:42 loratad ine 10 mg tablet 2023 024 ROHINI [facility], [address] [facility], [place], [address], 15:19:45 Patient TargetsNo targets recorded. Patient Instructions Encounter Date Encounter Id Patient Instructions Last Modified By Organization Details Last Modified Time 04/27/2024 [id number] Reviewed with patient possibly multiple issues going [...] Not available 04/27/2024 16:41:09 Reason for Referral Electronics Worker Referral for Dysphagia Referral for dysphagia and LPR. [facility] preferred. Thank you. Referring Physician: Bri Rothman, Otolaryngology, Encounter Date: 05/25/2024 Referral for speech therapy. Thanks! Referring Physician: Bri Rothman Otolaryngology, Encounter Date: 05/25/2024 Electronics Worker Referral for Gastroesophageal reflux disease without esophagitis [...] of this speci men. Not Available [facility] ([facility]) [address] [place], [address], 05/08/2024 10:13:35 04/27/2005/08/2024 FUNGA L SURFA CE SWAB (MANSOOR ) sample description COFFEE PLANTATION WORKER Not Available [facility] ([facility]) [address] [place], [address], 05/08/2024 10:13:35 04/27/20 24 05/08/2024 FUNGA L SURFA CE SWAB (MANSOOR ) total fungal count COFFEE PLANTATION WORKER Not Available [facility] (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) [address] [place], [address], 05/08/2024 10:13:35 04/27/20 24 05/08/2024 FUNGA L SURFA CE SWAB (MANSOOR ) interpretati on COFFEE PLANTATION WORKER Not Available [facility] ([facility]) [address] [place], [address], 05/08/2024 10:13:35 04/27/20 24 04/30/2024 AEROB IC BACTE RIAL CULTU RE aerobic bacterial culture Final report Not Available [facility] ([facility]) [address] [place], [address], 05/08/2024 10:13:36 04/27/20 24 04/30/2024 AEROB IC BACTE RIAL CULTU RE result 1 Mixed skin jeannine Not Available [facility] ([facility]) [address] [facility], [place], [address], 05/08/2024 10:13:36 04/27/20 24 05/08/[address] PROBL EM request problem COMMEN T Testi ng not perfo rmed due to the age of this speci men. TEST: [id number] Funga l Surfa ce Swab (MANSOOR ) Not Available [facility] ([facility]) [address] [facility], [place], [address], 05/08/2024 10:13:37 06/19/20 24 12/10/2019 imagi ng/di [...] L CENTER Diagno stic Imagin g Depart [address] [address] ____ Sanchez t: COL FRANKIE ORTEGA D.O.B. /Age/S ex: 1974 - 48 - F Unit#: [id number] Locati on/Sta tus: SPREHS T/PRE CLI Accoun t#: [id number] Mnmarjan ic/Ord ering Site: [facility] PDI Orderi ng Physic lorne: MAYITO VELASQUEZ PA-C ___ CR Barium Swallo w W Video - - [id number] Report Status :Love smith EXAMIN ATION: Modifi [...] martínez: 1109 Sign date/T martínez: 1115 [facility] (Central Scheduling Radiology) [address] [place], [address], 07/19/2024 16:45:30 10/11/20 24 10/10/2024 [place], modif ied lorna dumont study No observ ation record ed. Not Available 2023 15:04:12 10/16/20 24 10/10/2024 [place], modif ied lorna dumont study No observ ation record ed. [facility] (Imaging) [address] [place], [address], 10/16/2024 12:07:13 Result Notes None recorded. Problems Name Problem SNOMED Code Status Onset Date Resolution Date Notes Provider Name and Address Organization Details Recorded Time Disorder of smell 058972348 Active 2019 Other disturbanc es of smell and taste; Note: Date Diagnosed: 11/23/2019 11:56 AM (R43.8) Not Available [facility] 4 02:26:51 Disorder of taste 027370780 Active 2019 Other disturbanc es of smell and taste; Note: Date Diagnosed: 11/23/2019 11:56 AM (R43.8) Not Available [facility] 4 02:26:51 Allergic rhinitis 01578880 Active 2019 Allergic rhinitis: Due to other allergen; Note: Date Diagnosed: 12/24/2019 1:44 PM (477.8) Not Available [facility] 4 02:27:00 Obstructi ve sleep apnea syndrome 00324160 Active 2019 Obstructiv e sleep apnea (adult) (pediatric ); Note: Date Diagnosed: 11/23/2019 11:51 AM (G47.33) Not Available [facility] 4 02:27:14 Abnormal auditory perceptio n 06296816 Active 2019 Other abnormal auditory perception s, bilateral; Note: Date Diagnosed: 11/23/2019 11:57 AM (H93.293) Not Available [facility] 4 02:26:57 Asymmetri silvana sensorine ural hearing loss 786912334 Active 2019 Hearing loss: Sensorineu ral hearing loss, asymmetric al; Note: Date Diagnosed: 01/24/2020 2:36 PM (389.16) Not Available [facility] 4 02:27:10 Subjectiv e tinnitus 70361438 Active 2019 Subjective tinnitus; Note: Date Diagnosed: 01/24/2020 2:36 PM (388.31) Not Available [facility] 4 02:27:03 Nasal congestio n 36444040 Active 2019 Nasal congestion ; Note: Date Diagnosed: 11/23/2019 11:51 AM (R09.81) Not Available [facility] 4 02:27:16 Posterior rhinorrhe a 63872848 Active 2019 Postnasal drip; Note: Date Diagnosed: 11/23/2019 11:57 AM (R09.82) Not Available [facility] 4 02:26:49 Deviated nasal septum 411014393 Active 2019 Deviated nasal septum; Note: Date Diagnosed: 11/23/2019 11:57 AM (J34.2) Not Available [facility] 4 02:27:20 Dysphonia 63343488 Active 2019 Hoarseness ; Note: Date Diagnosed: 11/23/2019 11:51 AM (R49.0) Not Available [facility] 4 02:27:15 Sensorine ural hearing loss 47973508 Active 2019 Sensorineu ral hearing loss, unilateral , left ear, with unrestrict ed hearing on the contralate ral side; Note: Date Diagnosed: 12/10/2019 3:57 PM (H90.42) Not Available [facility] 4 02:27:02 Dysphagia 79152814 Active 2023 BRI ROTHMAN PA-C [address], [place], [address] , [place] - [facility] 4 15:15:08 Perennial allergic rhinitis 768611776 Active 2023 BRI ROTHMAN PA-C [address], [place], [address] , [place] - [facility] 4 15:18:54 Taste sense altered 038663870 Active 2023 TIEN WOODS-C [address], [place], [address] , [place] - [facility] 4 15:25:12 Laryngoph aryngeal reflux 838560288 Active [address], [place], [address] , [place] [facility] 4 13:15:27 Lingual dysarthri a 195139681 Active 2023 BRI ROTHMAN PA-C [address], [place], [address] , [place] [facility] 4 13:22:17 Dysarthri a 2097146 Active 2023 BRI ROTHMAN PA-C [address] [facility], [place], [place], [address] , [place] - [facility] 4 13:23:12 Enlargeme nt of tongue 14184513 Active 2023 BRI ROTHMAN PA-C [address] [facility], [place], [place], [address] , [place] - [facility] 4 09:21:26 Congenita l macroglos lori 029655211 Active 2023 Rachell hernandez, [place] - [facility] 4 11:50:46 Gastroeso phageal reflux disease without esophagit is 658012483 Active 2023 BRI ROTHMAN PA-C [address] [facility], [place], [place], [address] , [place] - [facility] 4 13:48:10 Problem Notes None recorded. Procedures Surgical History Date Name Laterality Status Provider Name and Address Organization Details Recorded Time 04/27/20 24 Fiberoptic Laryngoscopy (Comprehensive) completed BRI ROTHMAN PA-C [address] [facility], [place], [address], [place] - [facility] 04/27/2024 16:36:53 Imaging Results Imaging Date Name Status LastModified by [facility] Details LastModified Time 12/10/2019 imaging/diagno stic [...] available 06/19/2024 12:32:11 07/17/2024 chestxr completed [facility] (Central Scheduling Radiology) [address] [place], [address], 07/19/2024 16:45:30 10/10/2024 [place], modified barium swallow study completed Information not available 10/12/2024 15:04:12 10/10/2024 [place], modified barium swallow study completed [facility] (Imaging) [address] [place], [address], 10/16/2024 12:07:13 Procedure Notes None recorded. Medical Equipment None Reported. Allergies Allergen ID Allergen Name Allergen Category Reaction Reaction Severity Criticality Documentation Date Start Date Code Code System Note Provider Name and Address Organization Details Recorded Time 53770 aspirin medicatio n Not available Not available Not available 03/13/2024 1191 RxNorm React ion: other react ion, ringi ng in ears; Not Available [facility] 4 01:00:50 90090 amoxicill in medicatio n other Not available Not available 03/13/2024 723 RxNorm React ion: unkno wn, unspe cifie d;; Not Available [facility] 4 01:00:51 69215 Keflex medicatio n other Not available Not available 03/13/202415170 7 RxNorm React ion: unkno wn, unspe cifie d;; Not Available [facility] 4 01:00:56 68264 acetamino phen / hydrocodo ne medicatio n other Not available Not available 03/13/2024 48965 2 RxNorm React ion: unkno wn, unspe cifie d;; Not Available [facility] 4 01:01:00 Medications Name Sig Start Date Stop Date Status Note LastModified by Organization Details LastModified Time losartan 50 mg tablet 05/18 completed Medicati on ID: [id number] D uration Value: 90 Brand Name: losartan [...] 24 hr 05/18 completed Medicati on ID: [id number] D uration Value: 30 Brand Name: oxybutyn [...] mg tablet 05/18 completed Medicati on ID: [id number] D uration Value: 90 Brand Name: ragini [...] ne propionat e 50 mcg/actua tion nasal spray,[facility] 2020 active Medicati on ID: [id number] B rand Name: fluticas one propiona te [...] Updated DateTime 05/25/2024 152.4 cm 51.6 kg/m2 328608.39 g Melissa Bal [facility] 05/25/2024 13:02:29 Date Recorded Body height Body mass index (BMI) Body weight Provider Name and Address Organization Details Last Updated DateTime 09/13/2024 152.4 cm 51.6 kg/m2 638664.39 g Kassandra Demond [facility] 09/13/2024 13:18:31 Social History None recorded. [...] Note 5891 BRI ROTHMAN PA-C [facility] [address] [address] 04/27/2024 14:05:05 04/27/2024 15:23:02 Dysphagia 92892942 R13.10 Perennial allergic rhinitis 586663350 J30.89 Taste sense altered 2718 06311 R43.2 9193 JOHNNY FAIR MD [facility] [address] [address] 05/25/2024 12:36:18 05/25/2024 13:24:46 Laryngopharyngeal reflux 045927873 K21.9 Dysphagia 66230187 R13.1 2 Dysarthria 5240147 R47.1 19607 HAYLEY BAEZA MD [facility] [address] [address] 09/13/2024 13:16:03 09/13/2024 14:08:39 Lingual dysarthria 100605134 R47.1 Dysphagia 61422223 R13.1 2 Gastroesop hageal reflux disease without esophagitis 085868572 K21.9 Health Concerns Section Related Observation LastModified by Organization Detai ls LastModified Time None Recorded Concern Status LastModified by Organization Details LastModified Time None Recorded Advance Directives Directive None Recorded Payers Encounter Date Sequence Insurance Name Policy Number Policy Scott Covered Member ID Scott Member ID Guarantor Name 04/27/2024 1 [place] B-[place]: Status Overload [facility] Celina M Marcelino [id number] Celina Melvin Marcelino 04/27/2024 2 [place] [facility] Celina M Marcelino [id number] Celina Olegario [place] 05/25/2024 1 [place] [facility] [address] [facility] Celina Olegario Marcel[place] [id number] Celina [facility] 05/25/2024 2 [place] [facility] Celina Olegario Marcel[place] [id number] Celina [place] 09/13/2024 1 [place] [facility] Celina M Marcelino [id number] Celina [facility] 09/13/2024 2 [place] [facility] Celina M Marcelino [id number] Celina Olegario Marcelino Notes Date Note Type [...] allergic rhinitis and recently [facility] to the [facility]. BRI ROTHMAN PA-C [address] [facility],[address], [address], [facility] 04/27/2024 16:41:39 05/25/2024 text/html 48 year [...] hoarseness, hemoptysis, fevers. JOHNNY CRISOSTOMO MD [address] [facility],[address] [address], [place], [address], [place] - [facility] 05/25/2024 16:19:01 09/13/2024 text/html 49 year [...] Back to smoking marijuana. HAYLEY BAEZA MD [address] [place] [address], [place], [address], [place] [facility] 09/13/2024 20:59:42 OBGyn Episode No OBEpisode recorded.
== END 2024-11-16 10:24 | disposition home or self-care (01) ==
PROVIDERS: PCP Internal Medicine; Visit Provider Physician Assistant
DX: M17.12 Unilateral primary osteoarthritis, left knee (principal)
CPT/HCPCS: 99213

== ENCOUNTER 2024-11-22 02:19 | Emergency (ER) | payer MEDICARE, SELFPAY ==
[2024-11-22 02:21] VITALS: BP 133/74; PULSE 56; RESP 16; TEMP 36.6; O2SAT 96; BMI 52.9
--- NOTE | 2024-11-22 07:31 | ED.GENADULT ---
HPI - General Adult General Chief complaint: Ear Problems Stated complaint: ear problems Time Seen by Provider: 11/22/24 07:31 Source: patient Mode of arrival: ambulatory Limitations: no limitations History of Present Illness HPI narrative: This is a 49-year-old woman with a past medical history bipolar disorder, PTSD, hypertension who presents for right ear discomfort. Patient states that her ears have felt clogged for the last week. She reports some nasal congestion as well. She states that she has had to have her ears cleaned past and reports cleaning her ears this past week with a syringe that she had left over from previous. She states irrigating her ear with a bottled water and hydrogen peroxide. She states no hearing loss. She states no trauma. She states no fevers, chills, cough, congestion, chest pain, dyspnea, GI or symptoms. Related Data Home Medications ?Medication ?Instructions ?Recorded ?Confirmed cholecalciferol (vitamin D3) 50 100 mcg PO DAILY 12/11/20 11/08/24 mcg (2,000 unit) capsule multivitamin 1 tab PO DAILY 02/08/24 11/08/24 Previous Rx's ?Medication ?Instructions ?Recorded fluticasone propionate 50 1 spray intranasal DAILY #48 mL 07/09/21 mcg/actuation nasal spray,suspension blood pressure monitor #1 ea 09/20/22 ferrous fumarate 324 mg (106 mg 324 mg PO DAILY #90 tabs 09/02/23 iron) tablet bupropion HCl 150 mg 24 hr tablet, 150 mg PO QAM #30 tabs 12/11/23 extended release azelastine 137 mcg (0.1 %) nasal 1 spray intranasal BID #90 mL 01/19/24 spray oxybutynin chloride 15 mg 15 mg PO DAILY #90 tabs 09/18/24 tablet,extended release 24 hr metoprolol succinate 50 mg 50 mg PO DAILY #90 tabs 10/01/24 tablet,extended release 24 hr olmesartan 5 mg tablet 5 mg PO DAILY #90 tabs 10/01/24 ropinirole 2 mg tablet 2 mg PO BEDTIME #90 tabs 10/01/24 oxycodone 5 mg tablet 5 mg PO .qd PRN pain, severe #10 11/07/24 tabs ciprofloxacin 0.3 %-dexamethasone 4 drp otic (ear) right BID 7 days 11/22/24 0.1 % ear drops,suspension #7.5 mL Allergies Allergy/AdvReac Type Severity Reaction Status Date / Time cephalexin Allergy Severe hives Verified 11/22/24 02:23 hydrocodone [From Vicodin] Allergy Severe Hives Verified 11/22/24 02:23 aspirin [From Nixon Aspirin] Allergy Mild Eye Verified 11/22/24 02:23 Swelling Penicillins Allergy Unknown Verified 11/22/24 02:23 meloxicam AdvReac Swelling Verified 11/22/24 02:23 Review of Systems Review of Systems: ROS as per HPI [facility] Past Medical History Medical History Acute recurrent sinusitis Incisional hernia PTSD (post-traumatic stress disorder) Bipolar disorder Acute medial meniscus tear of right knee Refused influenza vaccine Pain in right foot Uterine fibroid Surgical menopause Vitamin D deficiency Ascending aortic aneurysm Morbid obesity Obstructive sleep apnea on CPAP Urinary, incontinence, stress female Restless leg syndrome Essential hypertension Surgical History Hx of cholecystectomy History of cervical spinal surgery History of section History of partial hysterectomy History of tubal ligation Family History Family History Father Heart disease Substance use disorder Mental health disorder Mother Alive and well Substance use disorder Mental health disorder Sister Mental health disorder Son Mental health disorder Daughter No problems noted. Social History Social History Housing: House Alcohol intake: current Alcohol intake frequency: holidays/special occasions only Alcohol type: wine and hard liquor Patient Tobacco Use Status: Former Tobacco user e-Cigarette/Vaping Use: Never Used Substance Use Type: Marijuana Advance Directives Date on File: 02/08/24 Do you have a plan to hurt others: No Plan service: No Current occupational status: disabled Cognitive needs: No Hearing needs: No Vision needs: No Physical Exam ED Vital Signs: Vital Signs - 24 hr 11/22/24 02:21 Temperature 97.9 F Pulse Rate 56 Respiratory Rate 16 Blood Pressure 133/74 Pulse Oximetry 96 Oxygen Delivery Method Room Air BMI result Body Mass Index 52.9 Gen: NAD, AOx3 HEENT: NCAT, EOMI, normal conjunctiva, no cerumen impaction b/l, no TM perforation b/l, right ear canal with mild edema and minimal purulence, no TM erythema/bulging b/l, left ear canal without edema/purulence, no erythema/edema to pinna b/l or TTP, no mastoid edema/TTP/overlying skin changes, oropharynx clear without erythema/exudates b/l, uvula midline without edema, palate symmetrical without lesions, no sublingual edema CV: RRR Pulm: CTAB GI: Soft, NTND Neuro: Grossly non focal Medical Decision Making Medical Decision Making MDM Narrative: Differential diagnosis includes, but is not limited to cerumen impaction, acute otitis media, acute otitis externa, viral syndrome. Patient is afebrile and hemodynamically stable on room air. Exam is benign and reassuring albeit consistent with acute otitis externa. On re-examination, patient is well-appearing and in no acute distress. There is no indication for further emergent evaluation in this otherwise well-appearing patient as above. Patient is provided written and verbal instructions, educational materials, recommendations for outpatient follow-up, prescription for Ciprodex, strict return precautions and teach back is performed. Patient states understanding and agreement with plan of care. Patient is discharged home in stable and improved condition. Discharge Plan Discharge Clinical Impression: Acute otitis externa Patient Disposition: Home, Self-Care Instructions: Otitis Externa (ED) Additional Instructions: You were seen and evaluated in the emergency room. You were found to have an ear infection. A prescription for antibiotic ear drops has been sent to your pharmacy. Please use as directed and until completed (i.e. 4 drops in your right ear, two times a day, for 7 days). Please follow-up with your primary care doctor in the next 5-7 days. ? Please return to the emergency room if you develop any new or concerning symptoms. Prescriptions: New ciprofloxacin-dexamethasone 0.3-0.1 % drops,suspension 4 drp otic (ear) right BID 7 Days Qty: 7.5 0RF No Action fluticasone propionate 50 mcg/actuation spray,suspension 1 spray intranasal DAILY Qty: 48 1RF (DME) blood pressure monitor Kit See Rx Instructions .Route Qty: 1 0RF Rx Instructions: Electronic BP monitor with Extra Large cuff ferrous fumarate 324 mg (106 mg iron) tablet 324 mg PO DAILY Qty: 90 0RF Rx Instructions: Schedule next PCP appt for future refills bupropion HCl 150 mg tablet extended release 24 hr 150 mg PO QAM Qty: 30 2RF azelastine 137 mcg (0.1 %) aerosol,spray 1 spray intranasal BID Qty: 90 1RF oxybutynin chloride 15 mg tablet extended release 24hr 15 mg PO DAILY Qty: 90 1RF metoprolol succinate 50 mg tablet extended release 24 hr 50 mg PO DAILY Qty: 90 1RF olmesartan 5 mg tablet 5 mg PO DAILY Qty: 90 1RF ropinirole 2 mg tablet 2 mg PO BEDTIME Qty: 90 1RF Rx Instructions: administer 1-3 hours before bedtime oxycodone 5 mg tablet 5 mg PO .qd PRN (Reason: pain, severe) Qty: 10 0RF cholecalciferol (vitamin D3) 50 mcg (2,000 unit) capsule 100 mcg PO DAILY multivitamin Tablet 1 tab PO DAILY Print Language: Sinhala
--- OUTSIDE RECORDS SUMMARY | 2024-11-22 07:52 | XMS_ITS | Data Portability ---
Author Organization MD - [facility], Allergy Address [address] [address] Care Team Providers Care Production Stage Manager Name Role Phone SUNITHA WHITE Primary Care Provider [phone] Assessment Encounter Date Assessment Date Assessment LastModified [...] issues, recommend she re-establish with GI at [place] for evaluation and long-term management. Patient may return to the office as needed. Not available 09/13/2024 13:49:53 Plan of Treatment Reminders Order Date Submit Date Provider Last Modified By Organization Details Last Modified Time Details Appointments None recorde d. Lab unliste d lab - fungal surface swab (mansoor) 2023 024 ROHINI [facility], [address] [facility] [address], [place], [address], 10:13:35 microor ganism identif ication , unspeci fied specime n 2023 024 ROHINI [facility], [address], [place], [address], 4 10:13:36 Referral gastroe nterolo gist referra l - Referra l for dysphag ia and LPR. Ray banda Office preferr ed. Thank you. 2023 024 [id number] 2 [facility] Gastroenterology Scheduling Department, [address], [place], [address], 12:25:38 speech therapy referra l - Referra l for speech therapy . Thanks! 2023 024 [email or web address] 2 Ly Segundo Ma, [address] [facility], [address], [place], [address], 4 12:25:59 gastroe nterolo gist referra l - Referra l for reflux. Thank you. 2023 024 [email or web address] 2 [facility], [address] [place] [address] [address], [place], [address], 4 09:50:48 speech therapy referra l - Good morning Erica. Patrick will need speech therapy . Thank you! 2023 024 2 Ly Segundo Ma, [address] [facility], [address], [place], [address], 4 09:51:50 Procedures None recorde d. Surgeries None recorde d. Imaging [place], modifie d barium swallow study 2023 024 [id number] [facility], [address], [place], [address], 4 10:20:10 [place], modifie d barium swallow study 2023 024 [facility], [address], [place], [address], 4 10:20:53 [place], modifie d barium swallow study 2023 024 [email or web address] [facility] (Imaging), [address] [facility], [place], [address], 14:12:04 Medication Orders omepraz ole 20 mg capsule ,delaye d release 2023 024 [id number], [address] [place], [address], 10:57:42 loratad ine 10 mg tablet 2023 024 ROHINI [id number], [address] [facility], [place], [address], 15:19:45 Patient TargetsNo targets recorded. Patient Instructions Encounter Date Encounter Id Patient Instructions Last Modified By Organization Details Last Modified Time 04/27/2024 [id number] Reviewed with patient possibly multiple issues going [...] Not available 04/27/2024 16:41:09 Reason for Referral Surety Bond Agent Referral for Dysphagia Referral for dysphagia and LPR. [facility] Office preferred. Thank you. Referring Physician: Bri Rothman, Otolaryngology, Encounter Date: 05/25/2024 Referral for speech therapy. Thanks! Referring Physician: Bri Rothman Otolaryngology, Encounter Date: 05/25/2024 Surety Bond Agent Referral for Gastroesophageal reflux disease without esophagitis [...] of this speci men. Not Available [facility]) [address] [place], [address], 05/08/2024 10:13:35 04/27/2005/08/2024 FUNGA L SURFA CE SWAB (MANSOOR ) sample description PIT FURNACE MELTER Not Available [facility] [address] [place], [address], 05/08/2024 10:13:35 04/27/20 24 05/08/2024 FUNGA L SURFA CE SWAB (MANSOOR ) total fungal count PIT FURNACE MELTER Not Available [facility]) [address] [place], [address], 05/08/2024 10:13:35 04/27/20 24 05/08/2024 FUNGA L SURFA CE SWAB (MANSOOR ) comment PIT FURNACE MELTER Not Available [facility] ([facility]) [address] [place], [address], 05/08/2024 10:13:35 04/27/20 24 05/08/2024 FUNGA L SURFA CE SWAB (MANSOOR ) interpretati on PIT FURNACE MELTER Not Available [facility] [address] [place], [address], 05/08/2024 10:13:35 04/27/20 24 04/30/2024 AEROB IC BACTE RIAL CULTU RE aerobic bacterial culture Final report Not Available [facility] ([facility]) [address] [place], [address], 05/08/2024 10:13:36 04/27/20 24 04/30/2024 AEROB IC BACTE RIAL CULTU RE result 1 Mixed skin jeannine Not Available [facility] ([facility]) [address], [place], [address], 05/08/2024 10:13:36 04/27/20 24 05/08/[address] PROBL EM request problem COMMEN T Testi ng not perfo rmed due to the age of this speci men. TEST: [id number] Funga l Surfa ce Swab (MANSOOR ) Not Available [facility] ([facility]) [address], [place], [address], 05/08/2024 10:13:37 06/19/20 24 12/10/2019 imagi ng/di [...] L CENTER Diagno stic Imagin g Depart [address] [address] ____ Sanchez t: COL FRANKIE ORTEGA D.O.B. /Age/S ex: 1974 - 48 - F Unit#: [id number] Locati on/Sta tus: SPREHS T/PRE CLI Accoun t#: [id number] Mnmarjan ic/Ord ering Site: [facility] PDI Orderi ng Physic lorne: MAYITO VELASQUEZ PA-C ___ CR Barium Swallo w W Video - - [id number] Report Status :Love smith EXAMIN ATION: Modifi [...] [facility] (Central Scheduling Radiology) [address] [place], [address], 07/19/2024 16:45:30 10/11/20 24 10/10/2024 [place], modif ied lorna dumont study No observ ation record ed. Not Available 2023 15:04:12 10/16/20 24 10/10/2024 [place], modif ied lorna dumont study No observ ation record ed. [facility] (Imaging) [address] [place], [address], 10/16/2024 12:07:13 Result Notes None recorded. Problems Name Problem SNOMED Code Status Onset Date Resolution Date Notes Provider Name and Address Organization Details Recorded Time Disorder of smell 850643255 Active 2019 Other disturbanc es of smell and taste; Note: Date Diagnosed: 11/23/2019 11:56 AM (R43.8) Not Available [facility] 4 02:26:51 Disorder of taste 195028266 Active 2019 Other disturbanc es of smell and taste; Note: Date Diagnosed: 11/23/2019 11:56 AM (R43.8) Not Available [facility] 4 02:26:51 Allergic rhinitis 44606665 Active 2019 Allergic rhinitis: Due to other allergen; Note: Date Diagnosed: 12/24/2019 1:44 PM (477.8) Not Available [facility] 4 02:27:00 Obstructi ve sleep apnea syndrome 48837753 Active 2019 Obstructiv e sleep apnea (adult) (pediatric ); Note: Date Diagnosed: 11/23/2019 11:51 AM (G47.33) Not Available [facility] 4 02:27:14 Abnormal auditory perceptio n 19373197 Active 2019 Other abnormal auditory perception s, bilateral; Note: Date Diagnosed: 11/23/2019 11:57 AM (H93.293) Not Available [facility] 4 02:26:57 Asymmetri silvana sensorine ural hearing loss 836646815 Active 2019 Hearing loss: Sensorineu ral hearing loss, asymmetric al; Note: Date Diagnosed: 01/24/2020 2:36 PM (389.16) Not Available [facility] 4 02:27:10 Subjectiv e tinnitus 62826859 Active 2019 Subjective tinnitus; Note: Date Diagnosed: 01/24/2020 2:36 PM (388.31) Not Available [facility] 4 02:27:03 Nasal congestio n 60976052 Active 2019 Nasal congestion ; Note: Date Diagnosed: 11/23/2019 11:51 AM (R09.81) Not Available [facility] 4 02:27:16 Posterior rhinorrhe a 06307938 Active 2019 Postnasal drip; Note: Date Diagnosed: 11/23/2019 11:57 AM (R09.82) Not Available [facility] 4 02:26:49 Deviated nasal septum 343458120 Active 2019 Deviated nasal septum; Note: Date Diagnosed: 11/23/2019 11:57 AM (J34.2) Not Available [facility] 4 02:27:20 Dysphonia 32367467 Active 2019 Hoarseness ; Note: Date Diagnosed: 11/23/2019 11:51 AM (R49.0) Not Available [facility] 4 02:27:15 Sensorine ural hearing loss 32733054 Active 2019 Sensorineu ral hearing loss, unilateral , left ear, with unrestrict ed hearing on the contralate ral side; Note: Date Diagnosed: 12/10/2019 3:57 PM (H90.42) Not Available [facility] 4 02:27:02 Dysphagia 90473251 Active 2023 BRI ROTHMAN PA-C [address], [place], [address] , [place] - [facility] 4 15:15:08 Perennial allergic rhinitis 061687994 Active 2023 BRI ROTHMAN PA-C [address], [place], [address] , [place] - [facility] 4 15:18:54 Taste sense altered 992011950 Active 2023 TIEN WOODS-C [address], [place], [address] , [place] - [facility] 4 15:25:12 Laryngoph aryngeal reflux 325770717 Active [address], [place], [address] , [place] - [facility] 4 13:15:27 Lingual dysarthri a 216290605 Active 2023 BRI ROTHMAN PA-C [address], [place], [address] , [place] - [facility] 4 13:22:17 Dysarthri a 1515833 Active 2023 BRI ROTHMAN PA-C [address] [facility] [address], [place], [place], [address] , [place] - [facility] 4 13:23:12 Enlargeme nt of tongue 64666274 Active 2023 BRI ROTHMAN PA-C [address] [facility] [address], [place], [place], [address] , [place] - [facility] 4 09:21:26 Congenita l macroglos lori 197862367 Active 2023 Rachell hernandez, [place] - [facility] 4 11:50:46 Gastroeso phageal reflux disease without esophagit is 893515223 Active 2023 BRI ROTHMAN PA-C [address] [facility] [address], [place], [place], [address] , [place] - [facility] 4 13:48:10 Problem Notes None recorded. Procedures Surgical History Date Name Laterality Status Provider Name and Address Organization Details Recorded Time 04/27/20 24 Fiberoptic Laryngoscopy (Comprehensive) completed BRI ROTHMAN PA-C [address] [facility], [place], [address], [place] - [facility] 04/27/2024 16:36:53 Imaging Results Imaging Date Name Status [facility]Modified by [facility] Details LastModified Time 12/10/2019 imaging/diagno stic [...] [facility] ([facility]) [address] [place], [address], 07/19/2024 16:45:30 10/10/2024 [place], modified barium swallow study completed Information not available 10/12/2024 15:04:12 10/10/2024 [place], modified barium swallow study completed [facility] (Imaging) [address] [place], [address], 10/16/2024 12:07:13 Procedure Notes None recorded. Medical Equipment None Reported. Allergies Allergen ID Allergen Name Allergen Category Reaction Reaction Severity Criticality Documentation Date Start Date Code Code System Note Provider Name and Address Organization Details Recorded Time 32458 aspirin medicatio n Not available Not available Not available 03/13/2024 1191 RxNorm React ion: other react ion, ringi ng in ears; Not Available [facility] 4 01:00:50 21791 amoxicill in medicatio n other Not available Not available 03/13/2024 723 RxNorm React ion: unkno wn, unspe cifie d;; Not Available [facility] 4 01:00:51 58791 Keflex medicatio n other Not available Not available 03/13/202431500 7 RxNorm React ion: unkno wn, unspe cifie d;; Not Available [facility] 4 01:00:56 38461 acetamino phen / hydrocodo ne medicatio n other Not available Not available 03/13/2024 80128 2 RxNorm React ion: unkno wn, unspe cifie d;; Not Available [facility] 4 01:01:00 Medications Name Sig Start Date Stop Date Status Note LastModified by Organization Details LastModified Time losartan 50 mg tablet 05/18 completed Medicati on ID: [id number] D uration Value: 90 Brand Name: losartan [...] 24 hr 05/18 completed Medicati on ID: [id number] D uration Value: 30 Brand Name: oxybutyn [...] mg tablet 05/18 completed Medicati on ID: [id number] D uration Value: 90 Brand Name: ragini [...] ne propionat e 50 mcg/actua tion nasal spray,[facility] 2020 active Medicati on ID: [id number] B rand Name: fluticas one propiona te [...] Updated DateTime 05/25/2024 152.4 cm 51.6 kg/m2 231509.39 g Melissa Bal [facility] 05/25/2024 13:02:29 Date Recorded Body height Body mass index (BMI) Body weight Provider Name and Address Organization Details Last Updated DateTime 09/13/2024 152.4 cm 51.6 kg/m2 624100.39 g Kassandra Demond [facility] 09/13/2024 13:18:31 Social History None recorded. Functional [...] Note [id number] BRI ROTHMAN PA-C [facility] [address] [address] 04/27/2024 14:05:05 04/27/2024 15:23:02 Dysphagia 77295497 R13.10 Perennial allergic rhinitis 647367232 J30.89 Taste sense altered 2718 30471 R43.2 9193 JOHNNY FAIR MD [facility] [address] [address] 05/25/2024 12:36:18 05/25/2024 13:24:46 Laryngopharyngeal reflux 667690403 K21.9 Dysphagia 21390181 R13.1 2 Dysarthria 7995216 R47.1 [id number] HAYLEY BAEZA MD [facility] [address] [address] 09/13/2024 13:16:03 09/13/2024 14:08:39 Lingual dysarthria 526029773 R47.1 Dysphagia 27071927 R13.1 2 Gastroesop hageal reflux disease without esophagitis 027850439 K21.9 Health Concerns Section Related Observation LastModified by Organization Detai ls LastModified Time None Recorded Concern Status LastModified by Organization Details LastModified Time None Recorded Advance Directives Directive None Recorded Payers Encounter Date Sequence Insurance Name Policy Number Policy Scott Covered Member ID Scott Member ID Guarantor Name 04/27/2024 1 [place] [email or web address] [facility] Celina M Marcelino [id number] Celina Melvin Marcelino 04/27/2024 2 [place] [facility] Celina M Marcelino [id number] Celina Olegario Warren 05/25/2024 1 MEDICARE B-[place]: [facility] [employer] [facility] Celina Olegario Marcelino [id number] Celina [facility] 05/25/2024 2 [place] [facility] Celina Olegario Marcelino [id number] Celina [place] 09/13/2024 1 [place] [employer] [facility] Celina M Marcelino [id number] Celina [facility] 09/13/2024 2 [place] [facility] Celina M Marcelino [id number] Celina Olegario Marcelino Notes Date Note Type [...] allergic rhinitis and recently moved [facility] the [facility] the [facility]. BRI ROTHMAN PA-C [address] [facility],[address], [address], [facility] - [facility] 04/27/2024 16:41:39 05/25/2024 text/html 48 year female [...] hoarseness, hemoptysis, fevers. JOHNNY CRISOSTOMO MD [address] [facility],[place] [address] [address], [place], [address], [place] - [facility] 05/25/2024 16:19:01 09/13/2024 text/html 49 year old [...] Back to smoking marijuana. HAYLEY BAEZA MD [address] [place] [address], [place], [address], [place] - [facility] 09/13/2024 20:59:42 OBGyn Episode No OBEpisode recorded.
[2024-11-22 08:03] VITALS: BP 133/74; PULSE 56; RESP 16; TEMP 36.6; O2SAT 96
== END 2024-11-22 08:03 | disposition home or self-care (01) ==
PROVIDERS: Emergency Provider Emergency Medicine; PCP Internal Medicine
DX: H60.91 Unspecified otitis externa, right ear (principal); H92.01 Otalgia, right ear; R09.81 Nasal congestion
CPT/HCPCS: 99282; 99283

== ENCOUNTER 2025-02-13 12:22 | Outpatient (AMB) | payer MEDICARE, SELFPAY ==
[2025-02-13 13:22] VITALS: BP 124/72; PULSE 68; RESP 17; TEMP 36.7; O2SAT 96; BMI 57.4
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
--- OUTSIDE RECORDS SUMMARY | 2025-02-13 14:41 | XMS_ITS | Data Portability ---
Author Organization [place] - [facility], Allergy Address [address] [place] [address] Care Team Providers Care Packaging Coordinator Name Role Phone SUNITHA WHITE Primary Care Provider [phone] Assessment Encounter Date Assessment Date Assessment LastModified [...] issues, recommend she re-establish with GI at [place] for evaluation and long-term management. Patient may return to the office as needed. Not available 09/13/2024 13:49:53 Plan of Treatment Reminders Order Date Submit Date Provider Last Modified By Organization Details Last Modified Time Details Appointments None recorde d. Lab unliste d lab - fungal surface swab (mansoor) 2023 024 ROHINI [facility] (Centralized Electronic Ordering - All Locations), Patient Can Go To The Location Of Their Choice, [address] 10:13:35 microor ganism identif ication , unspeci fied specime n 2023 024 ROHINI [facility] (Centralized Electronic Ordering - All Locations), Patient Can Go To The Location Of Their Choice, [address] 10:13:36 Referral gastroe nterolo gist referra l - Referra l for reflux. Thank you. 2023 [email or web address] 2 [facility], [address] [place] [address] [address], [place], [address], 09:50:48 speech therapy referra l - Good morning Erica. Patrick will need speech therapy . Thank you! 2023 [email or web address] 2 [address], [address] [facility], [address], [place], [address], 09:51:50 gastroe nterolo gist referra l - Referra l for dysphag ia and LPR. Ray ld Office preferr ed. Thank you. 2023 024 2 [facility] Gastroenterology Scheduling Department, [address] [facility], [address], [place], [address], 12:25:38 speech therapy referra l - Referra l for speech therapy . Thanks! 2023 024 [email or web address] 2 [address], [address] [facility], [address], [place], [address], 12:25:59 Procedures None recorde d. Surgeries None recorde d. Imaging prasanna SCHUSTER barium swallow study 2023 [facility] (Imaging), [address], [place], [address], 4 14:12:04 FLprasanna barium swallow study 2023 [id number] [facility], [address], [place], [address], 4 10:20:53 FLprasanna barium swallow study 2023 024 [facility], [address], [place], [address], 4 10:20:10 Medication Orders omepraz ole 20 mg capsule ,delaye d release 2023 024 [email or web address] [id number], [address] [place], [address], 10:57:42 loratad ine 10 mg tablet 2023 024 ROHINI [id number], [address] [facility], [place], [address], 15:19:45 Patient TargetsNo targets recorded. Patient Instructions Encounter Date Encounter Id Patient Instructions Last Modified By Organization Details Last Modified Time 04/27/2024 [id number] Reviewed with patient possibly multiple issues going [...] Not available 04/27/2024 16:41:09 Reason for Referral Electrical Systems Drafter Referral for Dysphagia Referral for dysphagia and LPR. [place] Office preferred. Thank you. Referring Physician: Bri Rothman, Otolaryngology, Encounter Date: 05/25/2024 Referral for speech therapy. Thanks! Referring Physician: Bri Rothman Otolaryngology, Encounter Date: 05/25/2024 Electrical Systems Drafter Referral for Gastroesophageal reflux disease without esophagitis [...] of this speci men. Not Available [facility] ([facility]) [address] [place], [address], 05/08/2024 10:13:35 04/27/20 24 05/08/2024 FUNGA L SURFA CE SWAB (MANSOOR ) sample description DIE CLEANER Not Available [facility] ([facility]) [address] [place], [address], 05/08/2024 10:13:35 04/27/20 24 05/08/2024 FUNGA L SURFA CE SWAB (MANSOOR ) total fungal count DIE CLEANER Not Available [facility] ([facility]) [address] [place], [address], 05/08/2024 10:13:35 04/27/20 24 05/08/2024 FUNGA L SURFA CE SWAB (MANSOOR ) comment DIE CLEANER Not Available [facility] ([facility]) [address] [place], [address], 05/08/2024 10:13:35 04/27/20 24 05/08/2024 FUNGA L SURFA CE SWAB (MANSOOR ) interpretati on DIE CLEANER Not Available [facility] ([facility]) [address] [place], [address], 05/08/2024 10:13:35 04/27/20 24 04/30/2024 AEROB IC BACTE RIAL CULTU RE aerobic bacterial culture Final report Not Available [facility] ([facility]) [address] [place], [address], 05/08/2024 10:13:36 04/27/20 24 04/30/2024 AEROB IC BACTE RIAL CULTU RE result 1 Mixed skin jeannine Not Available [facility] ([facility]) [address] [facility], [place], [address], 05/08/2024 10:13:36 04/27/20 24 05/08/[address] PROBL EM request problem COMMEN T Testi ng not perfo rmed due to the age of this speci men. TEST: [id number] 0 Funga l Surfa ce Swab (MANSOOR ) Not Available [facility] ([facility]) [address] [facility], [place], [address], 05/08/2024 10:13:37 06/19/20 24 12/10/2019 imagi ng/di [...] L CENTER Diagno stic Imagin g Depart [address] [address] ____ Kim t: JAI ON,COL FRANKIE Melvin D.O.B. /Age/S ex: 1974 - 48 - F Unit#: [id number] Locati on/Sta tus: SPREHS T/PRE CLI Accoun t#: [id number] Mnemon ic[facility] Orderi ng Physic lorne: MAYITO VELASQUEZ PA-C ___ CR Barium Swallo w W Video - - 1105 Report Status :Love d EXAMIN ATION: Modifi ed barium swallo w. INDICA TION: Dyspha rob. TECHNI QUE: Modifi ed barium swallo w was perfor med on the latera l fluoro scopy- guided patien t neelamigh t in presen ce of speech therap [...] Date/T martínez: 1109 Sign date/T martínez: 1115 [facility] (Central Scheduling Radiology) [address] [place], [address], 07/19/2024 16:45:30 10/11/20 24 10/10/2024 FL, modif ied lorna dumont study No observ ation record ed. Not Available 2023 15:04:12 10/16/20 24 10/10/2024 FL, modif ied lorna dumont study No observ ation record ed. [facility] (Imaging) [address] [place], [address], 10/16/2024 12:07:13 Result Notes None recorded. Problems Name Problem SNOMED Code Status Onset Date Resolution Date Notes Provider Name and Address Organization Details Recorded Time Disorder of smell 083526390 Active 2019 Other disturbanc es of smell and taste; Note: Date Diagnosed: 11/23/2019 11:56 AM (R43.8) Not Available [facility] 4 02:26:51 Disorder of taste 510409936 Active 2019 Other disturbanc es of smell and taste; Note: Date Diagnosed: 11/23/2019 11:56 AM (R43.8) Not Available [facility] 4 02:26:51 Allergic rhinitis 00981319 Active 2019 Allergic rhinitis: Due to other allergen; Note: Date Diagnosed: 12/24/2019 1:44 PM (477.8) Not Available [facility] 4 02:27:00 Obstructi ve sleep apnea syndrome 09556962 Active 2019 Obstructiv e sleep apnea (adult) (pediatric ); Note: Date Diagnosed: 11/23/2019 11:51 AM (G47.33) Not Available [facility] 4 02:27:14 Abnormal auditory perceptio n 13815131 Active 2019 Other abnormal auditory perception s, bilateral; Note: Date Diagnosed: 11/23/2019 11:57 AM (H93.293) Not Available [facility] 4 02:26:57 Asymmetri silvana sensorine ural hearing loss 622325700 Active 2019 Hearing loss: Sensorineu ral hearing loss, asymmetric al; Note: Date Diagnosed: 01/24/2020 2:36 PM (389.16) Not Available [facility] 4 02:27:10 Subjectiv e tinnitus 98502045 Active 2019 Subjective tinnitus; Note: Date Diagnosed: 01/24/2020 2:36 PM (388.31) Not Available [facility] 4 02:27:03 Nasal congestio n 41853742 Active 2019 Nasal congestion ; Note: Date Diagnosed: 11/23/2019 11:51 AM (R09.81) Not Available [facility] 4 02:27:16 Posterior rhinorrhe a 95685021 Active 2019 Postnasal drip; Note: Date Diagnosed: 11/23/2019 11:57 AM (R09.82) Not Available [facility] 4 02:26:49 Deviated nasal septum 859307056 Active 2019 Deviated nasal septum; Note: Date Diagnosed: 11/23/2019 11:57 AM (J34.2) Not Available [facility] 4 02:27:20 Dysphonia 96739784 Active 2019 Hoarseness ; Note: Date Diagnosed: 11/23/2019 11:51 AM (R49.0) Not Available [facility] 4 02:27:15 Sensorine ural hearing loss 07612912 Active 2019 Sensorineu ral hearing loss, unilateral , left ear, with unrestrict ed hearing on the contralate ral side; Note: Date Diagnosed: 12/10/2019 3:57 PM (H90.42) Not Available [facility] 4 02:27:02 Dysphagia 43705617 Active 2023 BRI ROTHMAN PA-C [address] [facility],[address], [place], [address] , [place] - [facility] 4 15:15:08 Perennial allergic rhinitis 538465825 Active 2023 BRI ROTHMAN PA-C [address] [facility] [address], [place], [address] , [place] [facility] 4 15:18:54 Taste sense altered 456632162 Active 2023 BRI ROTHMAN PA-C [address] [facility] [address], [place], [address] , [place] [facility] 4 15:25:12 Laryngoph aryngeal reflux 410642871 Active 2023 BRI ROTHMAN PA-C [address] [facility] [address], [place], [address] , [place] [facility] 4 13:15:27 Lingual dysarthri a 274524199 Active 2023 BRI ROTHMAN PA-C [address], [place], [address] , [place] [facility] 4 13:22:17 Dysarthri a 7436152 Active 2023 BRI ROTHMAN PA-C [address], [place], [address] , [place] [facility] 4 13:23:12 Enlargeme nt of tongue 40999658 Active 2023 BRI ROTHMAN PA-C [address], [place], [place], [address] , [place] - [facility] 4 09:21:26 Congenita l macroglos lori 060260286 Active 2023 Rachell hernandez, [place] - [facility] 4 11:50:46 Gastroeso phageal reflux disease without esophagit is 978259910 Active 2023 BRI ROTHMAN PA-C [address], [place], [place], [address] , [place] - [facility] 4 13:48:10 Problem Notes None recorded. Procedures Surgical History Date Name Laterality Status Provider Name and Address Organization Details Recorded Time 04/27/20 24 Fiberoptic Laryngoscopy (Comprehensive) completed BRI ROTHMAN PA-C [address] [facility] [address], [place], [place], [address], [facility] 04/27/2024 16:36:53 Imaging Results Imaging Date Name Status LastModified by [facility] Details LastModified Time 12/10/2019 imaging/diagno stic result [...] not available 06/19/2024 12:32:11 07/17/2024 chestxr completed [facility] (Central Scheduling Radiology) [address] [place], [address], 07/19/2024 16:45:30 10/10/2024 [place], modified barium swallow study completed Information not available 10/12/2024 15:04:12 10/10/2024 [place], modified barium swallow study completed [facility] (Imaging) [address] [place], [address], 10/16/2024 12:07:13 Procedure Notes None recorded. Medical Equipment None Reported. Allergies Allergen ID Allergen Name Allergen Category Reaction Reaction Severity Criticality Documentation Date Start Date Code Code System Note Provider Name and Address Organization Details Recorded Time 87975 aspirin medicatio n Not available Not available Not available 03/13/2024 1191 RxNorm React ion: other react ion, ringi ng in ears; Not Available [facility] 4 01:00:50 09957 amoxicill in medicatio n other Not available Not available 03/13/2024 723 RxNorm React ion: unkno wn, unspe cifie d;; Not Available [facility] 4 01:00:51 75778 Keflex medicatio n other Not available Not available 03/13/202430791 7 RxNorm React ion: unkno wn, unspe cifie d;; Not Available [facility] 4 01:00:56 69650 acetamino phen / hydrocodo ne medicatio n other Not available Not available 03/13/2024 26209 2 RxNorm React ion: unkno wn, unspe cifie d;; Not Available [facility] 4 01:01:00 Medications Name Sig Start Date Stop Date Status Note LastModified by Organization Details LastModified Time losartan 50 mg tablet 05/18 completed Medicati on ID: [id number] D uration Value: 90 Brand Name: losartan Send Method: E-Prescr ibed Sub s Allowed: subs ANTONIO Hernandezi al Instruct ion: TAKE 1 TABLET BY [...] 24 hr 05/18 completed Medicati on ID: [id number] D uration Value: 30 Brand Name: oxybutyn [...] t Available famotidin e 40 mg tablet TAKE 1 TABLET BY MOUTH EVERY DAY IN THE EVENING FOR 30 DAYS 2024 active Not Available Not Available Not Avai lable ropinirol e 2 mg tablet active Not Available Not Available Not Available ropinirol e 0.5 mg tablet 05/18 completed Medicati on ID: 428211 D uration Value: 90 Brand Name: ragini [...] ne propionat e 50 mcg/actua tion nasal spray[facility] 2020 active Medicati on ID: [id number] B rand Name: fluticas one propiona te [...] Updated DateTime 05/25/2024 152.4 cm 51.6 kg/m2 695790.39 g Melissa Bal [facility] 05/25/2024 13:02:29 Date Recorded Body height Body mass index (BMI) Body weight Provider Name and Address Organization Details Last Updated DateTime 09/13/2024 152.4 cm 51.6 kg/m2 077198.39 g Kassandra Demond [facility] 09/13/2024 13:18:31 Social History None recorded. [...] Note [id number] BRI ROTHMAN PA-C [facility] [address] [address] 04/27/2024 14:05:05 04/27/2024 15:23:02 Dysphagia 31225769 R13.10 Perennial allergic rhinitis 028298187 J30.89 Taste sense altered 2718 41593 R43.2 [id number] JOHNNY FAIR MD [facility] [address] [address] 05/25/2024 12:36:18 05/25/2024 13:24:46 Laryngopharyngeal reflux 418340767 K21.9 Dysphagia 98931961 R13.1 2 Dysarthria 2617369 R47.1 [id number] HAYLEY BAEZA MD [facility] [address] [address] 09/13/2024 13:16:03 09/13/2024 14:08:39 Lingual dysarthria 527297842 R47.1 Dysphagia 68082452 R13.1 2 Gastroesop hageal reflux disease without esophagitis 532548812 K21.9 Health Concerns Section Related Observation LastModified by Organization Detai ls LastModified Time None Recorded Concern Status LastModified by Organization Details LastModified Time None Recorded Advance Directives Directive None Recorded Payers Encounter Date Sequence Insurance Name Policy Number Policy Scott Covered Member ID Scott Member ID Guarantor Name 04/27/2024 1 [place] [employer] Celina M Chari [id number] Celina Marcelino 04/27/2024 2 [place] [facility] Celina Olegario Chari [id number] Celina Marcelino 05/25/2024 1 [place] [facility] Celina Olegario Chari [id number] Celina Marcelino 05/25/2024 2 [place] [facility] Celina Marcelino [id number] Celina Marcelino 09/13/2024 1 [place] [facility] Celina Olegario Chari [id number] Celina Marcelino 09/13/2024 2 [place] [facility] Celina Marcelino [id number] Celina Marcelino Notes Date Note Type Note [...] allergic rhinitis and recently moved from the [facility] to the [facility]. BRI ROTHMAN PA-C [address] [place] [address],[address], [address], [place] [facility] 04/27/2024 16:41:39 05/25/2024 text/html 48 year [...] hoarseness, hemoptysis, fevers. JOHNNY CRISOSTOMO MD [address] [facility] [address], [place], [address], [place] [facility] 05/25/2024 16:19:01 09/13/2024 text/html 49 year [...] Back to smoking marijuana. HAYLEY BAEZA MD [address] [place] [address], [place], [address], [place] [facility] 09/13/2024 20:59:42 OBGyn Episode No OBEpisode recorded.
--- OUTSIDE RECORDS SUMMARY | 2025-02-13 14:41 | XMS_ITS | Clinical Summary ---
Author Organization [address] [facility] Address [address] [place] [address] Phone Care Team Providers Care Route Contractor Name Role Phone Danya Oneil MD Primary Care Provider Allergies Active Allergy Reactions Criticality Noted Date Comments Amoxicillin Other 02/01/2012 Aspirin 12/17/2005 Cephalexin Monohydrate Swelling,Wheezing 2007 Other Reaction(s): Rash/Dermatitis Meloxicam Swelling 10/15/2022 Edema on bilateral legs. Sulfamethoxazole-Trimet hoprim Other 04/13/2011 Fever flu sx Medications miscellaneous medical supply misc CPAP Inhale into the lungs. SMS Active FERROUS FUMARATE-FOLIC ACID ORAL Take by mouth. daily Active acetaminophen (TYLENOL 8 HOUR) 650 mg 8 hr tablet Take 1 Tablet by mouth every 8 hours as needed. Active azelastine (ASTELIN) 137 mcg (0.1 %) nasal spray 2 Sprays by Each Nare route 2 times daily. Use in each nostril as directed Active calcium citrate-vitamin D3 1,000 mg-10 mcg /30 mL liquid Take by mouth. Active fluticasone propionate (FLONASE) 50 mcg/actuation nasal spray 2 Sprays by Each Nare route daily. Active loratadine (CLARITIN) 10 mg tablet Take 10 mg by mouth daily. Active metoprolol succinate (TOPROL-XL) 50 mg 24 hr tablet Take 50 mg by mouth daily. Active olmesartan (BENICAR) 5 mg tablet Take 1 Tablet by mouth daily. Active oxyBUTYnin XL (DITROPAN-XL) 10 mg 24 hr tablet Take 10 mg by mouth daily. Active rOPINIRole (REQUIP) 0.5 mg tablet Take 0.5 mg by mouth 3 times daily. Active Active Problems Problem Noted Date Diagnosed Date CHARLES (obstructive sleep apnea) 09/13/2024 Aortic aneurysm ([facility] V24) 09/13/2024 Obese 04/25/2019 Obstructive sleep apnea 04/09/2019 Overview (09/13/2024): SMS Split Night Polysomnogram Date 04/03/2019. Wt 247#; BMI 48. Without PAP: SE 37 % SM 43 %; REM 32 % of this phase. RDI 123 (AHI 123), Central apneas 11; Obstructive apneas 60; Mixed apneas 0; hypopneas 47; RERAs 0; average oxygen saturation 89% (lowest 61%); PLMs 168. With PAP: SE 88 % SM 92 %; REM 32 % of this phase. On CPAP @ 10; RDI 4 (AHI 4), Central apneas 0; Obstructive apneas 1; Mixed apneas 0; hypopneas 13; RERAs 0; and, average oxygen saturation was 93%; PLMs ~6. - Obstructive Sleep Apnea - Severe; mostly obstructive apneas and hypopneas; with sleep related hypoventilation by 2019 polysomnogram. - CPAP 10 corrective. Thoracic aortic aneurysm ([facility] V24) 2 Overview (09/13/2024): 46 x 44 mm, CTA of 12/19/2011 Cervical spinal stenosis 07/16/2011 HTN (hypertension) 03/16/2011 Morbid obesity ([facility] V24, [facility] V28) 2010 Restless leg 04/25/2009 Chronic gastric ulcer 11/30/2007 GERD (gastroesophageal reflux disease) 8 Immunizations Name Administration Dates Next Due Influenza trivalent, 0.5mL, preservative free (Fluarix; FluLaval; Fluzone) ages 6mo and older (Afluria) 3 years and older 07/20/2009 Tdap Tetanus diptheria acell ular pertussis (Boostrix; Adacel) 7yo and older 05/22/2011 Surgical History Surgery Date Site/Laterality Comments HYSTERECTOMY 2002 PROCEDURE: HISTORICAL VAGINAL HYSTERECTOMY W/O BSO; COMMENT: fibroids (in [place]) SECTION PROCEDURE: HISTORICAL DELIVERY CERVICAL LAMINECTOMY 12/16/11 PROCEDURE: HISTORICAL CERV LAMINECTOMY CHOLECYSTECTOMY 2019 PROCEDURE: HISTORICAL CHOLECYSTECTOMY Medical History Medical History Date Comments GERD (gastroesophageal reflu x disease) 11/30/2007 DX:GERD (gastroesophageal re flux disease) Tobacco use disorder 08/20/2008 DX:Tobacco use disorder HTN (hypertension) 03/16/2011 DX:HTN (hyper tension) Morbid obesity (CMS/HCC V24, CMS/HCC V28) 03/16/2011 DX:Morbid obesity (HCC) Cervical spinal stenosis 07/16/2011 DX:Cerv ical spinal stenosis Aortic aneurysm ([facility] V24) DX :Aortic aneurysm (HCC) CHARLES (obstructive sleep apnea) DX :CHARLES (obstructive sleep apnea) Family History Medical History Relation Name Comments Hypertension Father Other: fibroids Mother Breast cancer Neg Hx Colon cancer Neg Hx Ovarian cancer Neg Hx Relation Name Status Comments Father Mother Social History Tobacco Use Types Packs/Day Years Used Date Smoking Tobacco: Former Cigarettes Q uit: 07/01/2019 Smokeless Tobacco: Never Alcohol Use Standard Drinks/Week Comments Yes 0 (1 standard drink = 0.6 oz pur e alcohol) Comments Unknown Sex and Gender Information Value Date Recorded Sex Assigned at Not on file Legal Sex Female 8:42 PM EST Gender Identity Not on file Sexual Orientation Not on file Obstetrics History Last Filed Vital Signs Vital Sign Reading Time Taken Comments Blood Pressure 94/64 05/01/2024 12:03 PM EDT Si tting L Arm Pulse 61 05/01/2024 12:03 PM EDT Temperature - - Respiratory Rate - - Oxygen Saturation - - Inhaled Oxygen Concentration - - Weight 122 kg (270 lb) 05/01/2024 12:03 PM EDT Height 152.4 cm (5') 05/01/2024 12:03 PM EDT Body Mass Index 52.73 05/01/2024 12:03 PM EDT Plan of Treatment Upcoming Encounters Date Type Department Care Team (Late st Contact Info) Description 05/02/2025 11:30 AM EDT Office Visit Pulmonolgy - [place] [address] [place] [address] Cheri Mora MD [address] [facility] [address] [place] [address] Health Maintenance Due Date Last Done Comments Breast Cancer Screening 1974 Hepatitis B Vaccines (1 of 3 - 19+ 3-dose series) 1993 Cervical Cancer Screening: P ap Smear 1995 DTaP,Tdap,and Td Vaccines (2 - Td or Tdap) 05/22/2021 05/22/2011 Cholesterol Screening (Lipid Panel) 10/02/2022 01/14/2010 Colorectal Cancer Screening: Colonoscopy 10/02/2022 Depression Screening 10/02/2022 HIV Screening 10/02/2022 Hepatitis C Screening 10/02/2022 Medicare Annual Wellness Visit 10/02/2022 Social Influencers of Health Screening 10/02/2022 Hypertension/CHF/CAD Annual BMP Blood Test 10/14/2022 09/20/2011 COVID-19 Vaccine (1 - 2023-2 5 season) 2024 Pneumococcal Vaccine: 50+ Ye ars (1 of 1 - PCV) 2024 Zoster Vaccines (1 of 2) 2024 Influenza Vaccine (Season Ended) 2025 07/20/20 09 HIB Vaccines Aged Out No longer eligi ble based on patient's age to complete this topic HPV Vaccines Aged Out No longer eligi ble based on patient's age to complete this topic Hepatitis A Vaccines Aged Out No long er eligible based on patient's age to complete this topic IPV Vaccines Aged Out No longer eligi ble based on patient's age to complete this topic MMR Vaccines Aged Out No longer eligi ble based on patient's age to complete this topic Meningococcal ACWY Vaccine Aged Out N o longer eligible based on patient's age to complete this topic Meningococcal B Vaccine Aged Out No l onger eligible based on patient's age to complete this topic Pneumococcal Vaccine: Pediat rics (0 to 5 Years) and At-Risk Patients (6 to 64 Years) Aged Out No longer eligi ble based on patient's age to complete this topic RSV Immunization Patients Un sumanth 20 months Aged Out No longer eligible b ased on patient's age to complete this topic Varicella Vaccines Aged Out No longer eligible based on patient's age to complete this topic Procedures Procedure Name Priority Date/Time Associated Diagnosis Comments ANNUAL BMP BLOOD TEST Routine 09/20/2011 LIPID PANEL Routine 01/14/2010 from Last 3 Months or Most Recently Relevant to Health Maintenance Results * Annual BMP Blood Test (09/20/2011) Annual BMP Blood Test Abstracted Historical Provider HEALTH MAINTENANCE Final Result * Lipid panel (01/14/2010) LDL/HDL Ratio 3 0 - 4 Triglycerides 91 0 - 150 mg/dL Cholesterol 139 0 - 200 mg/dL HDL 40 >=40 mg/dL LDL Cholesterol 81 0 - 100 mg/dL Blood Venous blood specimen / Unknown Historical Provider LAB BLOOD ORDERABLES Laura l Result from Last 3 Months or Most Recently Relevant to Health Maintenance Insurance MEDICAID - [place] [employer] MEDICARE Advance Directives Documents on File Type Date Recorded Patient Cigarette Vendor Expl anation Health Care Decision (hx) 06/21/2023 HE ALTH CARE PROXY Health Care Decision (hx) 06/21/2023 HE ALTH CARE PROXY Health Care Decision (hx) 06/21/2023 HE ALTH CARE PROXY Health Care Decision (hx) 06/21/2023 HE ALTH CARE PROXY Health Care Decision (hx) 06/21/2023 HE ALTH CARE PROXY Health Care Decision (hx) 06/21/2023 HE ALTH CARE PROXY Health Care Decision (hx) 06/21/2023 HE ALTH CARE PROXY Health Care Decision (hx) 06/21/2023 HE ALTH CARE PROXY Health Care Decision (hx) 06/21/2023 HE ALTH CARE PROXY Health Care Decision (hx) 06/21/2023 HE ALTH CARE PROXY Health Care Decision (hx) 12/16/2011 AD BYRNE DIRECTIVE Health Care Decision (hx) 12/16/2011 AD BYRNE DIRECTIVE Health Care Decision (hx) 12/16/2011 AD BYRNE DIRECTIVE Health Care Decision (hx) 12/16/2011 AD BYRNE DIRECTIVE Health Care Decision (hx) 12/16/2011 AD BYRNE DIRECTIVE Health Care Decision (hx) 12/16/2011 AD BYRNE DIRECTIVE Health Care Decision (hx) 12/16/2011 AD BYRNE DIRECTIVE Care Teams Route Contractor Relationship Specialty Start Date End Date Danya Oneil MD [address] [place] [address] PCP - General Internal Medicine 09/29/18
--- OUTSIDE RECORDS SUMMARY | 2025-02-13 14:41 | XMS_ITS | Patient Health Record ---
Author Organization [facility] Address [address] [address] Care Team Providers Care Technologist Infectious Disease Name Role Phone Danya Oneil Primary Care [...] bedtime Orally Once a day Active Nasal [place] Active Vitamin D3 50 MCG (1999) 1 tablet Orally Once a day Active Problems Problem Type SNOMED Code ICD Code Onset Dates Problem Status W/U Status Risk Notes Problem 31057322 Varicose veins of bilateral lower extremities with pain (I83.813) Active confirmed Problem 12900627 Rheumatoid nodule, right ankle and foot (M06.371) Active confirmed Problem 90005368 Rheumatoid nodule, left ankle and foot (M06.372) Active confirmed Problem 362860223 Rheumatoid arthritis involving multiple sites with positive [...] of [place] [address] [place] [address] [id number] Celina Marcelino Self - patient is the [...]
== END 2025-02-13 14:03 | disposition home or self-care (01) ==
PROVIDERS: PCP Internal Medicine; Visit Provider Internal Medicine
DX: Z00.00 Encounter for general adult medical examination without abnormal findings (principal); R51.9 Headache, unspecified; E66.01 Morbid (severe) obesity due to excess calories; Z68.43 Body mass index [BMI] 50.0-59.9, adult; G89.29 Other chronic pain; K14.8 Other diseases of tongue; R49.0 Dysphonia; I10 Essential (primary) hypertension; Z28.21 Immunization not carried out because of patient refusal; G47.33 Obstructive sleep apnea (adult) (pediatric); Z99.89 Dependence on other enabling machines and devices

== ENCOUNTER 2025-02-13 12:22 | Outpatient (REF) | payer MEDICARE, SELFPAY ==
[2025-02-13 16:27] LABS: Blood Urea Nitrogen 15 mg/dL (9-16); Estimated Glomerular Filt Rate > 60
--- OUTSIDE RECORDS SUMMARY | 2025-02-13 16:50 | XMS_ITS | Clinical Summary ---
Author Organization 175 [facility] Address [address] [place] [address] Phone Care Team Providers Care Montessori Lead Teacher Name Role Phone Danya Oneil MD Primary [...] (obstructive sleep apnea) 09/13/2024 Aortic aneurysm ([facility] V24) 09/13/2024 Obese 04/25/2019 Obstructive sleep apnea [...] CPAP 10 corrective. Thoracic aortic aneurysm ([facility] V24) 2 Overview (09/13/2024): 46 x 44 mm, CTA of 12/19/2011 Cervical spinal stenosis 07/16/2011 HTN (hypertension) 03/16/2011 Morbid obesity ([facility] V24, [facility] V28) 2010 Restless leg 04/25/2009 Chronic gastric [...] VAGINAL HYSTERECTOMY W/O BSO; COMMENT: fibroids (in [place]) SECTION PROCEDURE: HISTORICAL DELIVERY CERVICAL LAMINECTOMY 12/16/11 [...] DX:Cerv ical spinal stenosis Aortic aneurysm ([facility] V24) DX :Aortic aneurysm (HCC) CHARLES (obstructive [...] 11:30 AM EDT Office Visit Pulmonolgy - [place] [address] [place] [address] Cheri Mora MD [address] [facility] [address] [place] [address] Health Maintenance Due Date Last Done Comments [...] Documents on File Type Date Recorded Patient Jig Box Operator Expl anation Health Care Decision (hx) 06/21/2023 [...] (hx) 12/16/2011 AD BYRNE DIRECTIVE Care Teams Montessori Lead Teacher Relationship Specialty Start Date End Date Danya Oneil MD [address] [place] [address] PCP - General Internal Medicine 09/29/18
== END 2025-02-13 12:23 | disposition home or self-care (01) ==
LOC: HO.HMGCLDS 12:22
PROVIDERS: PCP Internal Medicine; Visit Provider Internal Medicine
DX: Z00.01 Encounter for general adult medical examination with abnormal findings (principal); R51.9 Headache, unspecified; G89.29 Other chronic pain; K14.8 Other diseases of tongue; R49.0 Dysphonia; I10 Essential (primary) hypertension; G47.33 Obstructive sleep apnea (adult) (pediatric); N39.3 Stress incontinence (female) (male); G25.81 Restless legs syndrome; E66.01 Morbid (severe) obesity due to excess calories; Z68.43 Body mass index [BMI] 50.0-59.9, adult; Z79.899 Other long term (current) drug therapy; Z99.89 Dependence on other enabling machines and devices; Z28.21 Immunization not carried out because of patient refusal
CPT/HCPCS: 36415; 82565; 84520; 96127; 99396

== ENCOUNTER 2025-03-27 13:02 | Outpatient (REF) | payer MEDICARE, MEDICAID, SELFPAY ==
--- NOTE | ~2025-03-27 | CT_ITS ---
EXAMINATION: CT SOFT TISSUE NECK WITH CONTRAST CLINICAL INFORMATION: Dysphonia COMPARISON: None available. TECHNIQUE: Following the intravenous administration of 100 mL of Omnipaque 350 intravenous contrast, helical imaging was performed in the axial plane with generation of coronal and sagittal reformatted images. This CT examination was performed using dose optimization techniques as appropriate, variously including the following: *Automated exposure control *Adjustment of mA and/or kV according to patient size (this includes techniques or standardized protocols for targeted exams where dose is matched to indication/reason for exam; i.e. extremities or head) *Use of iterative reconstruction technique DLP: 1987 mGy/cm. FINDINGS: Utilized intracranial brain parenchyma appears unremarkable. Subtle mucosal thickening seen along the medial wall of left maxillary sinus. Otherwise rest of paranasal sinuses are well expanded and clear. Partially visualized bilateral optic globes and the orbits are unremarkable. The nasal cavity airway is widely patent. There is mild deviation of nasal septum to the right. There is moderate enlargement of soft palate and adenoids with moderate narrowing of nasopharyngeal airway. Punctate calcifications seen in the right adenoids likely from chronic inflammatory process. The oropharyngeal airway is normal. The pharyngeal elias are symmetric and normal. The prevertebral and paravertebral soft tissues are normal. At the level of larynx/glottis and slightly superior there is a soft tissue mass with partial circumferential calcification measuring 1.0 cm x 1.4 cx 0.19 cm. It lies posterior to the laryngeal airway and compressing the airway anteriorly. The supraglottic and infraglottic airway is normal. The laryngeal ventricles and the valleculae are aerated and appear normal. Anterior and lateral laryngeal elias are normal. The tracheal airway is widely patent. Visualized hyoid, thyroid and cricoid cartilages are normal. Adenoid cartilages are intact however there appears to be soft tissue lesion arising superiorly does not cartilage. Question hypertrophied or enlargement of cartilages. Tumor is not excluded. Correlate with endoscopy. Diffuse attenuation of parotid and submandibular glands are symmetrical. Thyroid lobes are symmetrical and normal. There is mild fatty attenuation of left tunneled on axial image 36/10. However there is no shift of the midline raphae. Hypoglossal or posterior pharyngeal no involvement cannot be excluded. This could very well represent artifact secondary to dental filling. Incidental finding of ascending aortic aneurysm partially visualized. It measures 4.7 x 4.2 cm. The lung apices are clear except minimal apical pleural thickening. No abnormal supra clavicular neck lymphadenopathy seen. CT/CT soft tissue neck w IV con IMPRESSION: Soft tissue density with calcification posterior to the glottis. Question hypertrophied adenoid cartilage, underlying tumor of cartilaginous or mucous origin. Recommend direct endoscopy. There is compromise of laryngeal airway. Mild hypertrophy adenoids with punctate calcification likely from old inflammatory process. Asymmetric appearance of left lung could be secondary to artifact. Correlate with neurological exam Electronically signed by: Trenton Mix MD 03/27/2025 03:44 PM EDT
--- NOTE | ~2025-03-27 | CT_ITS ---
EXAMINATION: CT HEAD WITHOUT CONTRAST CLINICAL INFORMATION: R51.9 - Headache, unspecified COMPARISON: None available. TECHNIQUE: Contiguous axial imaging was performed from the skull base to vertex without intravenous administration of contrast. This CT examination was performed using dose optimization techniques as appropriate, variously including the following: *Automated exposure control *Adjustment of mA and/or kV according to patient size (this includes techniques or standardized protocols for targeted exams where dose is matched to indication/reason for exam; i.e. extremities or head) *Use of iterative reconstruction technique DLP: 993.18 mGy-cm FINDINGS: Limited secondary to patient's body habitus. No acute intracranial hemorrhage, mass effect, midline shift, hydrocephalus or herniation. Mcknight-white matter differentiation is normal. Posterior cranial fossa contents demonstrated no gross mass effect. Craniocervical junction demonstrates normal position of the cerebellar tonsils. Sellar/suprasellar region demonstrates no gross masses. Retropharyngeal trajectory of the ICA. Small retention cysts versus polyp, left maxillary sinus. Mucosal thickening, paranasal sinuses. No air-fluid levels. Tympanic cavities and mastoid cells are aerated. CT/CT head/brain wo IV con IMPRESSION: No acute intracranial hemorrhage or acute brain abnormality by CT. Electronically signed by: Prabhjot Mo MD 03/27/2025 03:17 PM EDT
--- OUTSIDE RECORDS SUMMARY | 2025-03-27 13:49 | XMS_ITS | Patient Health Record ---
Author Organization [facility] Address [address] [address] Care Team Providers Care Paper Maker Name Role Phone Danya Oneil Primary Care [...] bedtime Orally Once a day Active Nasal [place] Active Vitamin D3 50 MCG (1999) 1 tablet Orally Once a day Active Problems Problem Type SNOMED Code ICD Code Onset Dates Problem Status W/U Status Risk Notes Problem 41796646 Varicose veins of bilateral lower extremities with pain (I83.813) Active confirmed Problem 21700667 Rheumatoid nodule, right ankle and foot (M06.371) Active confirmed Problem 89588278 Rheumatoid nodule, left ankle and foot (M06.372) Active confirmed Problem 272410617 Rheumatoid arthritis involving multiple sites with positive [...] of [place] [address] [place] [address] [id number] Celina Marcelino Self - patient is the [...]
[2025-03-27] MEDS: iohexoL 350 MG/ML 100 ML INFUS..BTL IV (14:03)
[2025-03-27 15:56] LABS: Creatinine POC 0.7 mg/dL (0.5-1.4); GFR POC > 60
== END 2025-03-27 13:03 | disposition home or self-care (01) ==
LOC: HO.CT 13:02
PROVIDERS: PCP Internal Medicine; Visit Provider Internal Medicine
DX: R49.0 Dysphonia (principal); K14.8 Other diseases of tongue; R51.9 Headache, unspecified; G89.29 Other chronic pain
CPT/HCPCS: 70450; 70491; 82565; Q9967

== ENCOUNTER → 2025-03-27 13:05 | Outpatient (BNV) | payer MEDICARE, MEDICAID, SELFPAY | PROVIDERS: PCP Internal Medicine; Visit Provider Radiology Diagnostic Radiology | DX: M61.9 Calcification and ossification of muscle, unspecified (principal); R51.9 Headache, unspecified | CPT/HCPCS: 70450; 70491 ==

== ENCOUNTER 2025-05-14 11:39 | Outpatient (AMB) | payer MEDICARE, MEDICAID, SELFPAY ==
[2025-05-14 12:10] VITALS: BP 118/86; PULSE 62; RESP 17; TEMP 36.8; O2SAT 97; BMI 57.6
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
--- OUTSIDE RECORDS SUMMARY | 2025-05-14 12:59 | XMS_ITS | Patient Health Record ---
Author Organization [facility] Address [address] [address] Care Team Providers Care Support Coordinator Name Role Phone Danya Oneil Primary Care [...] bedtime Orally Once a day Active Nasal [place] Active Vitamin D3 50 MCG (1999) 1 tablet Orally Once a day Active Problems Problem Type SNOMED Code ICD Code Onset Dates Problem Status W/U Status Risk Notes Problem 80383818 Varicose veins of bilateral lower extremities with pain (I83.813) Active confirmed Problem 04840038 Rheumatoid nodule, right ankle and foot (M06.371) Active confirmed Problem 48649284 Rheumatoid nodule, left ankle and foot (M06.372) Active confirmed Problem 443297779 Rheumatoid arthritis involving multiple sites with positive [...] of [place] [address] [place] [phone] [id number] Celina Marcelino Self - patient is the [...]
--- OUTSIDE RECORDS SUMMARY | 2025-05-14 12:59 | XMS_ITS | Clinical Summary ---
Author Organization [address] [facility] Address [address] [place] [address] Phone Care Team Providers Care Tinning Machine Set Up Operator Name Role Phone Danya Oneil MD Primary [...] mg by mouth 3 times daily. Active buPROPion XL (WELLBUTRIN XL) 150 mg 24 hr tablet Take 1 tablet (150 mg total) by mouth 1 (one) time each day in the morning. Active Active Problems Problem Noted Date Diagnosed Date CHARLES (obstructive sleep apnea) 09/13/2024 Aortic aneurysm ([facility] V24) 09/13/2024 Obese 04/25/2019 Obstructive sleep apnea 04/09/2019 Overview (09/13/2024): [facility] Split Night Polysomnogram Date 04/03/2019. Wt 247#; [...] and hypopneas; with sleep related hypoventilation by 2018 polysomnogram. - CPAP 10 corrective. Thoracic aortic aneurysm ([facility] V24) 2 Overview (09/13/2024): 46 x 44 mm, CTA of 12/19/2011 Cervical spinal stenosis 07/16/2011 HTN (hypertension) 03/16/2011 Morbid obesity ([facility] V24, [facility] V28) 2010 Restless leg 04/25/2009 Chronic gastric ulcer 11/30/2007 GERD (gastroesophageal reflux disease) 8 Encounters Date Type Department Care Team Description 03/05/2025 Telephone Pulmonolgy - [address] [place] [phone] Radha Kennedy MA DME-Cpap replacement 03/04/2025 10:30 AM EDT Office Visit Pulmonolgy [facility] [address] [facility] [address] [place] [phone] Cheri Mora MD Obstructive sleep apnea (Primary Dx); Morbid obesity ([facility] V24, [facility] V28) from Last 3 Months Immunizations Name Administration Dates Next Due Influenza [...] (hypertension) 03/16/2011 DX:HTN (hyper tension) Morbid obesity ([facility] V24, [facility] V28) 03/16/2011 DX:Morbid obesity (HCC) Cervical spinal stenosis 07/16/2011 DX:Cerv ical spinal stenosis Aortic aneurysm ([facility] V24) DX :Aortic aneurysm (HCC) CHARLES (obstructive [...] Sign Reading Time Taken Comments Blood Pressure 148/87 03/04/2025 10:35 AM EDT Pulse 74 03/04/2025 10:35 AM EDT Temperature 35.8 C (96.4 F) 03/04/2025 10:35 AM EDT Respiratory Rate 20 03/04/2025 10:35 AM EDT Oxygen Saturation 97% 03/04/2025 10:35 AM EDT Inhaled Oxygen Concentration - - Weight 135 kg (297 lb 6.4 oz) 03/04/2025 10:35 A M EDT Height 152.4 cm (5') 03/04/2025 10:35 AM EDT Body Mass Index 58.08 03/04/2025 10:35 AM EDT Plan of Treatment Upcoming Encounters Date Type Department Care Team (Late st Contact Info) Description 09/04/2025 2:45 PM EST Office Visit Pulmonolgy - [place] [address] [facility] [address] [place] [phone] Cheri Mora MD [address] [facility] [address] [place] [address] Health Maintenance Due Date Last Done Comments Breast Cancer Screening 1974 Hepatitis B Vaccines (1 of 3 - 19+ 3-dose series) 1993 Cervical Cancer Screening: Pap Smear 1995 Cholesterol Screening (Lipid Panel) 10/02/2022 01/14/2010 Colorectal Cancer Screening: Colonoscopy 10/02/2022 Depression Screening 10/02/2022 HIV Screening 10/02/2022 Hepatitis C Screening 10/02/2022 Medicare Annual Wellness Visit 10/02/2022 Social Influencers of Health Screening 10/02/2022 Hypertension/CHF/CAD Annual BMP Blood Test 10/14/2022 09/20/2011 COVID-19 Vaccine ( - 2023- season) 2024 Pneumococcal Vaccine: 50+ Years (1 of 1 - PCV) 2024 Zoster Vaccines (1 of 2) 2024 Influenza Vaccine (#1) 2025 9, 09/28/2018, 08/16/2017, Additional history exists DTaP,Tdap,and Td Vaccines (4 - Td or Tdap) 03/30/2027 03/30/2017, 08/15/2012, 05/22/2011 HIB Vaccines Aged Out No longer eligi [...] to complete this topic RSV Immunization Patients Under 20 months Aged Out No longer eligible based on [...] Results * Annual BMP Blood Test (09/20/2011) Pathologist [facility] Annual BMP Blood Test Abstracted Historical Provider HEALTH MAINTENANCE Final Result * Lipid panel (01/14/2010) Pathologist [facility] LDL/HDL Ratio 3 0 - 4 Triglycerides [...] Documents on File Type Date Recorded Patient Director Of Dementia Operations Expl anation Health Care Decision (hx) 06/21/2023 [...] (hx) 12/16/2011 AD BYRNE DIRECTIVE Care Teams Tinning Machine Set Up Operator Relationship Specialty Start Date End Date Danya Oneil MD [address] [place] [address] PCP - General Internal Medicine 09/29/18
--- OUTSIDE RECORDS SUMMARY | 2025-05-14 12:59 | XMS_ITS | Data Portability ---
Author Organization [place] [facility], Allergy Address [address] [place] [address] Care Team Providers Care Psychological Assistant Name Role Phone RONALD WHITEL Primary Care Provider Assessment Encounter Date Assessment [...] issues, recommend she re-establish with GI at [place] for evaluation and long-term management. Patient may return to the office as needed. Not available 09/13/2024 13:49:53 Plan of Treatment Reminders Order Date Submit Date Provider Last Modified By Organization Details Last Modified Time Details Appointments Estab kash smith 15 2024 04:00P M HAYLEY BAEZA MD Not available Not available Not available Lab [facility] - funga l surfa ce swab (mansoor ) 2023 024 ROHINI [facility] (Centralized Electronic Ordering - All Locations), Patient Can Go To The Location Of Their Choice, [address] 05/08/2024 10:13:35 micro organ ism ident ifica tion, unspe cifie d speci men 2023 ROHINI [facility] (Centralized Electronic Ordering - All Locations), Patient Can Go To The Location Of Their Choice, [address] 05/08/2024 10:13:36 Referral gastr misbah pang iskeisha refer ral - Refer ral for reflu x. Thank you. 2023 024 [id number] [facility], [address] [place] [address] Dr, [address]rd Or, [place], [address], 10/15/2024 09:50:48 speec h thera py refer ral - Good yara Modi . Colle en will need speec h thera py. Thank you! 2023 024 [id number] Ly Segundo Ma, [address] [facility], [address], [place], [address], 10/15/2024 09:51:50 gastr misbah pang ist refer ral - Refer ral for dysph agia and LPR. [place] Offic e prefe rred. Thank you. 2023 024 [id number] [facility], [address] [facility], [facility] [address], [place], [address], 06/28/2024 12:25:38 speec h thera py refer ral - Refer ral for speec h thera py. Thank s! 2023 024 [id number] Ly Segundo Ma, [address] [facility], [address], [place], [address], 06/28/2024 12:25:59 Procedures None recor ded. Surgeries None recor ded. Imaging [place], modif hortensia dumont study 2023 024 [email or web address] [facility] (Imaging), [address] [facility], [place], [address], 09/21/2024 14:12:04 [place], yulissaif hortensia dumont study 2023 024 [email or web address] [facility], [address], [place], [address], 07/03/2024 10:20:53 [place], modif ied lorna molina ow study 2023 024 [id number] [facility], [address], [place], [address], 07/03/2024 10:20:10 Medication Orders omepr azole 20 mg capsu le,de layed relea se 2023 024 [id number] [facility], [address] [place], [address], 05/21/2024 10:57:42 lorat adine 10 mg table t 2023 024 ROHINI [facility], [address] [facility], [place], [address], 04/27/2024 15:19:45 Patient TargetsNo targets recorded. Patient Instructions Encounter Date Encounter Id Patient Instructions Last Modified By Organization Details Last Modified Time 04/27/2024 [id number] Reviewed with patient possibly multiple issues going [...] Not available 04/27/2024 16:41:09 Reason for Referral Kiln Tester Referral for Dysphagia Referral for dysphagia and LPR. [place] [facility] preferred. Thank you. Referring Physician: Bri Rothman, Otolaryngology, Encounter Date: 05/25/2024 Referral for speech therapy. Thanks! Referring Physician: Bri Rothman, Otolaryngology, Encounter Date: 05/25/2024 Kiln Tester Referral for Gastroesophageal reflux disease without esophagitis [...] of this speci men. Not Available [facility] ([facility]) [address] [facility], [place], [address], 05/08/2024 10:13:35 04/27/20 24 05/08/2024 FUNGA L SURFA CE SWAB (MANSOOR ) sample description MANAGEMENT PLANNER Not Available [facility] ([facility]) [address] [facility], [place], [address], 05/08/2024 10:13:35 04/27/20 24 05/08/2024 FUNGA L SURFA CE SWAB (MANSOOR ) total fungal count MANAGEMENT PLANNER Not Available [facility] ([facility]) [address] [place], [address], 05/08/2024 10:13:35 04/27/20 24 05/08/2024 FUNGA L SURFA CE SWAB (MANSOOR ) comment MANAGEMENT PLANNER Not Available [facility] ([facility]) [address] [place], [address], 05/08/2024 10:13:35 04/27/20 24 05/08/2024 FUNGA L SURFA CE SWAB (MANSOOR ) interpretati on MANAGEMENT PLANNER Not Available [facility] ([facility]) [address] [place], [address], 05/08/2024 10:13:35 04/27/20 24 04/30/2024 AEROB IC BACTE RIAL CULTU RE aerobic bacterial culture Final report Not Available [facility] ([facility]) [address] [facility], [place], [address], 05/08/2024 10:13:36 04/27/20 24 04/30/2024 AEROB IC BACTE RIAL CULTU RE result 1 Mixed skin jeannine Not Available [facility] ([facility]) [address] [facility], [place], [address], 05/08/2024 10:13:36 04/27/20 24 05/08/[address] PROBL EM request problem COMMEN T Testi ng not perfo rmed due to the age of this speci men. TEST: 02496 0 Funga l Surfa ce Swab (MANSOOR ) Not Available [facility] ([facility]) [address] [facility], [place], [address], 05/08/2024 10:13:37 06/19/20 24 12/10/2019 imagi ng/di [...] ation record ed. [email or web address] Not Available 12:31:32 06/19/2023 0505/19/2022 imagi ng/di agnos tic resul t No [...] L CENTER Diagno stic Imagin g Depart [place] [id number] ____ Kim t: COL FRANKIE ORTEGA /Age/S ex: 1974 - 48 - F Unit#: [id number] Locati on/Sta tus: SPREHS T/PRE CLI Accoun t#: [id number] Mnemon ic/Ord ering Site: [facility] PDI Orderi ng Physic loren: MAYITO VELASQUEZ PA-Tyson ___ CR Barium Swallo w W Video - - 6720 Report Status :Love d EXAMIN ATION: Modifi ed barium swallo w. INDICA TION: Dyspha rob. TECHNI QUE: Modifi ed barium swallo w was perfor med on the latera l fluoro scopy- guided patien t uprigh t in presen ce of speech therap [...] Date/T martínez: 1109 Sign date/T martínez: 111[address] [facility] (Central Scheduling Radiology) [address] [facility], [place], [address], 07/19/2024 16:45:30 10/11/20 24 10/10/2024 [place], modif ied lorna dumont study No observ ation record ed. Not Available 2023 15:04:12 10/16/20 24 10/10/2024 [place], modif ied lorna molina ow study No observ ation record ed. BARCODE [facility] (Imaging) [address] [place], [address], 10/16/2024 12:07:13 03/28/20 25 03/27/2025 CT, neck, soft tissu e, w/ contr ast No observ ation record ed. [facility] [address] [place], [address], 03/29/2025 10:33:39 Result Notes None recorded. Problems Name Problem SNOMED Code Status Onset Date Resolution Date Notes Provider Name and Address Organization Details Recorded Time Disorder of smell 035710582 Active 2019 Other disturbanc es of smell and taste; Note: Date Diagnosed: 11/23/2019 11:56 AM (R43.8) Not Available [facility] 4 02:26:51 Disorder of taste 022714733 Active 2019 Other disturbanc es of smell and taste; Note: Date Diagnosed: 11/23/2019 11:56 AM (R43.8) Not Available [facility] 4 02:26:51 Allergic rhinitis 95299394 Active 2019 Allergic rhinitis: Due to other allergen; Note: Date Diagnosed: 12/24/2019 1:44 PM (477.8) Not Available [facility] 4 02:27:00 Obstructi ve sleep apnea syndrome 71717948 Active 2019 Obstructiv e sleep apnea (adult) (pediatric ); Note: Date Diagnosed: 11/23/2019 11:51 AM (G47.33) Not Available [facility] 4 02:27:14 Abnormal auditory perceptio n 52586312 Active 2019 Other abnormal auditory perception s, bilateral; Note: Date Diagnosed: 11/23/2019 11:57 AM (H93.293) Not Available [facility] 4 02:26:57 Asymmetri silvana sensorine ural hearing loss 491320173 Active 2019 Hearing loss: Sensorineu ral hearing loss, asymmetric al; Note: Date Diagnosed: 01/24/2020 2:36 PM (389.16) Not Available [facility] 4 02:27:10 Subjectiv e tinnitus 95794810 Active 2019 Subjective tinnitus; Note: Date Diagnosed: 01/24/2020 2:36 PM (388.31) Not Available [facility] 4 02:27:03 Nasal congestio n 87318579 Active 2019 Nasal congestion ; Note: Date Diagnosed: 11/23/2019 11:51 AM (R09.81) Not Available [facility] 4 02:27:16 Posterior rhinorrhe a 97751830 Active 2019 Postnasal drip; Note: Date Diagnosed: 11/23/2019 11:57 AM (R09.82) Not Available [facility] 4 02:26:49 Deviated nasal septum 712784620 Active 2019 Deviated nasal septum; Note: Date Diagnosed: 11/23/2019 11:57 AM (J34.2) Not Available [facility] 4 02:27:20 Dysphonia 74885244 Active 2019 Hoarseness ; Note: Date Diagnosed: 11/23/2019 11:51 AM (R49.0) Not Available [facility] 4 02:27:15 Sensorine ural hearing loss 91390136 Active 2019 Sensorineu ral hearing loss, unilateral , left ear, with unrestrict ed hearing on the contralate ral side; Note: Date Diagnosed: 12/10/2019 3:57 PM (H90.42) Not Available [facility] 4 02:27:02 Dysphagia 04950224 Active 2023 BRI ROTHMAN PA-C [address] [facility] [address], [place], [address] , [place] [facility] 4 15:15:08 Perennial allergic rhinitis 174778753 Active 2023 BRI ROTHMAN PA-C [address] [facility] [address], [place], [address] , [place] [facility] 4 15:18:54 Taste sense altered 587375983 Active 2023 BRI ROTHMAN PA-C [address] [facility],[place] [address], [place], [address] , [place] [facility] 4 15:25:12 Laryngoph aryngeal reflux 630315626 Active 2023 BRI ROTHMAN PA-C [address] [facility],[place] [address], [place], [place], [address] , [place] - [facility] 4 13:15:27 Lingual dysarthri a 037251440 Active 2023 BRI ROTHMAN PA-C [address] [place] [address],[place] [address], [place], [place], [address] , [facility] - [facility] 4 13:22:17 Dysarthri a 0874527 Active 2023 BRI ROTHMAN PA-C [address] [facility],[place] [address], [place], [place], [address] , [place] - [facility] 4 13:23:12 Enlargeme nt of tongue 87704714 Active 2023 BRI ROTHMAN PA-C [address] [place] [address],[place] [address], [place], [place], [address] , [place] - [facility] 4 09:21:26 Congenita l macroglos lori 630379877 Active 2023 Rachell hernandez [place] [facility] 4 11:50:46 Gastroeso phageal reflux disease without esophagit is 558611482 Active 2023 BRI ROTHMAN PA-C [address] [facility],[place] [address], [address] , [place] - [facility] 4 13:48:10 Problem Notes None recorded. Procedures Surgical History Date Name Laterality Status Provider Name and Address Organization Details Recorded Time 04/27/20 24 Fiberoptic Laryngoscopy (Comprehensive) completed BRI KETCHEN, [address], [address], [facility] - [facility] 04/27/2024 16:36:53 Imaging Results None recorded. Procedure Notes None recorded. Medical Equipment None Reported. Allergies Allergen ID Allergen Name Allergen Category Reaction Reaction Severity Criticality Documentation Date Start Date Code Code System Note Provider Name and Address Organization Details Recorded Time 44878 aspirin medicatio n Not available Not available Not available 03/13/2024 1191 RxNorm React ion: other react ion, ringi ng in ears; Not Available [facility] 4 01:00:50 11222 amoxicill in medicatio n other Not available Not available 03/13/2024 723 RxNorm React ion: unkno wn, unspe cifie d;; Not Available [facility] 4 01:00:51 87945 Keflex medicatio n other Not available Not available 03/13/2024 89009 7 RxNorm React ion: unkno wn, unspe cifie d;; Not Available [facility] 4 01:00:56 98605 acetamino phen / hydrocodo ne medicatio n other Not available Not available 03/13/2024 73055 2 RxNorm React ion: unkno wn, unspe cifie d;; Not Available [facility] 4 01:01:00 Medications Name Sig Start Date Stop Date Status Note LastModified by Organization Details LastModified Time losartan 50 mg tablet 05/18 completed Medicati on ID: [id number] D uration Value: 90 Brand Name: losartan [...] 24 hr 05/18 completed Medicati on ID: [id number] D uration Value: 30 Brand Name: oxybutyn [...] mg tablet 05/18 completed Medicati on ID: [id number] D uration Value: 90 Brand Name: ragini le Send Method: E-Prescr ibed Sub s [...] spray,nhan pension 2020 active Medicati on ID: [id number] B rand Name: fluticas one propiona te [...] Updated DateTime 05/25/2024 152.4 cm 51.6 kg/m2 261779.39 g Melissa Bal [facility] 05/25/2024 13:02:29 Date Recorded Body height Body mass index (BMI) Body weight Provider Name and Address Organization Details Last Updated DateTime 09/13/2024 152.4 cm 51.6 kg/m2 697111.39 g Kassandra Lagos [facility] 09/13/2024 13:18:31 Social [...] Diagnosis ICD10 Code Diagnosis Note [id number] BRI KETCHEN, PA-C [facility] [address] [place] [address] 04/27/2024 14:05:05 04/27/2024 15:23:02 Dysphagia 87096815 R13.10 Perennial allergic rhinitis 430948871 J30.89 Taste sense altered 2718 93495 R43.2 9193 BRI ROTHMAN PA-C [facility] [address] [place] [address] 05/25/2024 12:36:18 05/25/2024 13:24:46 Laryngopharyngeal reflux 874929655 K21.9 Dysphagia 50439293 R13.1 2 Dysarthria 0607845 R47.1 20731 BRI ROTHMAN PA-C [facility] [address] [address] 09/13/2024 13:16:03 09/13/2024 14:08:39 Lingual dysarthria 331719115 R47.1 Dysphagia 35580596 R13.1 2 Gastroesop hageal reflux disease without esophagitis 130517763 K21.9 Health Concerns Section Related Observation LastModified by Organization Detai ls LastModified Time None Recorded Concern Status LastModified by Organization Details LastModified Time None Recorded Advance Directives Directive None Recorded Payers Insurance Date Sequence Insurance Name Policy Number Policy Scott Covered Member ID Scott Member ID Guarantor Name 09/13/2024 1 [place] B-[place]: [employer] Celina Marcelino [id number] Celina Marcelino 02/20/2025 2 [place] [facility] Celina Marcelino [id number] Celina Marcelino Notes Date Note Type Note [...] allergic rhinitis and [facility]. BRI ROTHMAN PA-C [address] [place] [address], [address], [facility] - [facility] 04/27/2024 16:41:39 05/25/2024 text/html 48 year female [...] hoarseness, hemoptysis, fevers. JOHNNY CRISOSTOMO MD [address] [facility],[address], [address], [place] - [facility] 05/25/2024 16:19:01 09/13/2024 text/html 49 year old [...] to smoking marijuana. HAYLEY BAEZA MD [address] [place] [address],[place] [address], [place], [address], [place] [facility] 09/13/2024 20:59:42 OBGyn Episode No OBEpisode recorded.
== END 2025-05-14 12:49 | disposition home or self-care (01) ==
LOC: HO.HMCC 11:40
PROVIDERS: PCP Internal Medicine; Visit Provider Internal Medicine
DX: M17.0 Bilateral primary osteoarthritis of knee (principal); R06.81 Apnea, not elsewhere classified; E66.01 Morbid (severe) obesity due to excess calories; Z68.43 Body mass index [BMI] 50.0-59.9, adult

== ENCOUNTER → 2025-05-14 11:39 | Outpatient (BNVA) | payer MEDICARE, MEDICAID, SELFPAY | PROVIDERS: PCP Internal Medicine; Visit Provider Internal Medicine | DX: R06.81 Apnea, not elsewhere classified (principal); M17.0 Bilateral primary osteoarthritis of knee; E66.01 Morbid (severe) obesity due to excess calories; Z68.43 Body mass index [BMI] 50.0-59.9, adult; Z71.3 Dietary counseling and surveillance | CPT/HCPCS: 99212 ==

== ENCOUNTER 2025-07-13 12:58 | Outpatient (REF) | payer MEDICARE, MEDICAID, SELFPAY ==
--- OUTSIDE RECORDS SUMMARY | 2025-07-13 13:01 | XMS_ITS | Clinical Summary ---
Author Organization 175 [facility] Address [address] [place] [address] Phone Care Team Providers Care Clerical Grader Name Role Phone Danya Oneil MD Primary [...] CHARLES (obstructive sleep apnea) 09/13/2024 Aortic aneurysm ([facility] V24) 09/13/2024 Obese 04/25/2019 Obstructive sleep apnea 04/09/2019 Overview (09/13/2024): [facility] Split Night Polysomnogram Date 04/03/2019. Wt 247#; [...] - CPAP 10 corrective. Thoracic aortic aneurysm ([facility] V24) 2 Overview (09/13/2024): 46 x 44 mm, CTA of 12/19/2011 Cervical spinal stenosis 07/16/2011 HTN (hypertension) 03/16/2011 Morbid obesity [place], [facility] V28) 2010 Restless leg 04/25/2009 Chronic gastric [...] VAGINAL HYSTERECTOMY W/O BSO; COMMENT: fibroids (in [place]) SECTION PROCEDURE: HISTORICAL DELIVERY CERVICAL LAMINECTOMY 12/16/11 [...] 07/16/2011 DX:Cerv ical spinal stenosis Aortic aneurysm (CMS/HCC V24) DX :Aortic aneurysm (HCC) CHARLES (obstructive [...] 2:45 PM EST Office Visit Pulmonolgy - [place] [address] [facility] [address] [place] [address] Cheri Mora MD [address] [facility] [address] [place] [address] Health Maintenance Due Date Last Done Comments Breast Cancer Screening 1974 Hepatitis B Vaccines (1 of 3 - 19+ 3-dose series) 1993 Cervical Cancer Screening: Pap Smear 1995 Cholesterol Screening (Lipid Panel) 10/02/2022 01/14/2010 Colorectal Cancer Screening: Colonoscopy 10/02/2022 HIV Screening 10/02/2022 Hepatitis C Screening 10/02/2022 Medicare Annual Wellness Visit 10/02/2022 Social Influencers of Health Screening 10/02/2022 Hypertension/CHF/CAD Annual BMP Blood Test 10/14/2022 09/20/2011 Pneumococcal Vaccine: 50+ Years (1 of 1 - PCV) 2024 Zoster Vaccines (1 of 2) 2024 Depression Screening 10/31/2024 COVID-19 Vaccine (1 - season) 2025 Influenza Vaccine (#1) 2025 9, 09/28/2018, 08/16/2017, [...] Insurance MEDICAID - [place] [id number] Advance Directives Documents on File Type Date Recorded 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
--- OUTSIDE RECORDS SUMMARY | 2025-07-13 13:02 | XMS_ITS | Patient Health Record ---
Author Organization [facility] Address [address] [address] Care Team Providers Care Search Engineer Name Role Phone Danya Oneil Primary Care [...] bedtime Orally Once a day Active Nasal Hartley Active Vitamin D3 50 MCG (1999) 1 tablet Orally Once a day Active Problems Problem Type SNOMED Code ICD Code Onset Dates Problem Status W/U Status Risk Notes Problem Pain co-occurrent and due to varicose veins of bilateral legs (36580610728050 100) Varicose veins of bilateral lower extremities with pain (I83.813) Active confirmed Problem Rheumatoid arthritis (01731469) Rheumatoid nodule, right ankle and foot (M06.371) Active confirmed Problem Rheumatoid arthritis (14776844) Rheumatoid nodule, left ankle and foot (M06.372) Active confirmed Problem Rheumatoid arthritis (92064059) Rheumatoid arthritis involving multiple sites with positive [...] Coverage End Date Medicare of [place] [address] [phone] [id number] Celina Marcelino Self - patient is the [...] Hospitalization History Reason Date(Month/Year) cholecystectomy 2019 hysterectomy 2003 vaginal delivery (girl) 1998 (boy) 1992 cervical spine surgery
== END 2025-07-13 12:59 | disposition home or self-care (01) ==
LOC: HO.MRI 12:58
PROVIDERS: PCP Internal Medicine; Visit Provider Otolaryngology
DX: G52.3 Disorders of hypoglossal nerve (principal); G52.2 Disorders of vagus nerve
CPT/HCPCS: 70543; 70553; A9585

== ENCOUNTER → 2025-07-13 13:18 | Outpatient (BNV) | payer MEDICARE, MEDICAID, SELFPAY | PROVIDERS: PCP Internal Medicine; Visit Provider Radiology Diagnostic Radiology | DX: G52.3 Disorders of hypoglossal nerve (principal) | CPT/HCPCS: 70543; 70553 ==